=== PATIENT | female | born 1985 | race African-American/Black ===

== ENCOUNTER 2024-06-01 14:26 | Emergency (ER) | payer OTHER, SELFPAY ==
--- NOTE | ~2024-06-01 | CT_ITS ---
CLINICAL HISTORY: evaluate for malpositioned IUD CT Abdomen and Pelvis W Contrast COMPARISON: None FINDINGS: Detail limited by artifacts. Hepatomegaly. Normal spleen. Normal kidneys. Normal adrenal glands. Normal pancreas. No visible cholelithiasis. No biliary dilation. No evidence of bowel obstruction or colitis. Normal appendix. Mild dorsal bladder wall thickening. IUD appears normally positioned in the uterus by CT. No ascites. No pneumoperitoneum. No lymphadenopathy. No acute fracture. No abdominal aortic aneurysm. IMPRESSION: Possible cystitis. Normally positioned IUD by CT. This document has been electronically signed by: Eric Lius MD on 06/01/2024 22:05:35
[2024-06-01 15:07] VITALS: BP 131/86; PULSE 85; RESP 16; TEMP 36.8; O2SAT 98; BMI 27.5
--- NOTE | 2024-06-01 15:12 | ED_ITS ---
HPI - General Adult General Chief complaint: Vaginal Bleeding Stated complaint: pain lower abd Time Seen by Provider: 06/01/24 18:30 History of Present Illness ED Provider: Pepe Mojica DO HPI narrative: 38-year-old Malaysian Creole speaking female who is with last the in February 2024 with section other significant past medical history presents to the ED due to 1 week of persistent vaginal bleeding without clots. History obtained with the assistance of patient Creole corporate communications intern via tablet. Patient states she has had persistent bleeding which worsened over the last couple of days, soaking through no previous history of vaginal bleeding. No vaginal trauma. She denies urinary symptoms such as dysuria, urgency or frequency. She denies fevers, chills, vomiting and diarrhea. She does report some cramping lower abdominal pain. She had an IUD placed shortly after her section. Related Data Previous Rx's ?Medication ?Instructions ?Recorded acetaminophen 500 mg tablet 500 mg PO Q6H PRN fever or pain 06/01/24 #20 tabs ibuprofen 600 mg tablet 600 mg PO TID PRN fever or pain 06/01/24 #20 tabs Allergies Allergy/AdvReac Type Severity Reaction Status Date / Time No Known Allergies Allergy Verified 06/01/24 15:16 Review of Systems 2 Review of Systems: Yes all other systems are reviewed and are negative PMFSH Social History Social History Advance Directives: No Advance Directives Information Provided: No Do you have a plan to hurt others: No Plan Physical Exam ED Vital Signs: Vital Signs - 24 hr 06/01/24 15:07 06/01/24 20:00 Temperature 98.2 F 98.3 F Pulse Rate 85 74 Respiratory Rate 16 18 Blood Pressure 131/86 141/93 H Pulse Oximetry 98 100 Oxygen Delivery Method Room Air Room Air BMI result Body Mass Index 27.5 Constitutional: ?Alert, oriented, speaking in full sentences HEENT: ?Moist mucous membranes Eyes: ?PERRL, EOMI Neck: ?Supple, nontender Chest: ?No chest wall tenderness Respiratory: ?Lungs clear to auscultation, no increased work of breathing Cardio: ?Regular rate and rhythm, no murmur, 2+ radial and DP pulses symmetrically GI: ?Soft, nondistended, nontender Back: ?Normal range of motion, nontender Skin: ?No rash, no lesions : Speculum exam performed with female industrial gas servicer supervisor, Linda, present. Patient noted to have pooling of blood which was removed with 3 scopettes. Small amount of oozing was visualized from the cervix. IUD strings also visualized emerging from the cervix. No vaginal wall lacerations. No clots noted. No discharge otherwise. Neuro: ?Alert and oriented to person, place and time, moves all 4 extremities, no focal deficits Extremities: ?No swelling or tenderness, full range of motion Psych: ?Calm, alert and cooperative, appropriate behavior Course Course Course Narrative: This is a rapid medical exam performed by Stanislaw Millard NP: Additional HPI, ROS, PE not included below will be deferred to primary provider. Patient is a 38-year-old Malaysian Creole speaking female presenting with lower abdominal pain. States she had recent on 02/09/24, had IUD placed, is having vaginal bleeding. Plan: labs, UA Medications Administered Discontinued Medications Generic Name Dose Route Start Last Admin Trade Name Freq PRN Reason Stop Dose Admin Ketorolac Tromethamine 15 mg 06/01/24 20:49 06/01/24 21:56 Ketorolac Tromethamine 15 Mg/Ml Vial IVPUSH 06/01/24 20:50 15 mg ONCE ONE Administration Medical Decision Making Medical Decision Making [facility] Narrative: Well-appearing, pleasant female presenting with some cramping abdominal pain and vaginal bleeding. Labs have been reviewed and show no coagulopathy, no anemia. Patient has mild hypertension which may be related to discomfort today. Otherwise vitals are unremarkable. We will address discomfort and bleeding with IV ketorolac. Based on the exam, the patient is not having profuse bleeding. However, differential for bleeding includes IUD malposition which will be further evaluated with CT abdomen and pelvis with contrast. Unlikely to be due to mass. Outside the window for obstetric complication. The patient will be signed out to the next provider pending CT results and final disposition. I received sign-out from my colleague Dr. Mojica. CT scan of the abdomen does not show any acute abnormality, IUD is in place. Patient believes she has a copper IUD. I discussed with the patient that unfortunately, with any IUDs, the vaginal bleeding can be unpredictable in amount and timing. Patient's hemoglobin is stable, no signs of anemia. I discussed with the patient that if she can not tolerate amount of bleeding or discomfort, she can follow-up with her OBGYN and discuss the removal of IUD versus alternative treatments. Patient requesting to be referred to our OBGYN, Dr. Guerra Admission/Observation Consideration of admission/observation: Escalation of care including admission/observation considered Lab Data MDM Lab Attestation statement: I reviewed the patient's lab results. Chemistry shows mild elevation of AST, negative test, no other acute findings. Unremarkable coags. Unremarkable CBC with a hemoglobin of 13.2. Urinalysis showing no evidence of cystitis a positive for proteinuria and hematuria. 06/01/24 15:30 06/01/24 15:30 Labs: Lab Results 06/01/24 Range/Units 15:30 WBC 5.8 (4.8-10.8) X10*3/uL RBC 5.14 (4.20-5.50) X10*6/uL Hgb 13.2 (12.0-16.0) g/dl Hct 41.4 (37.0-47.0) % MCV 80.5 (80.0-98.0) fL MCH 25.7 L (27.0-33.0) pg MCHC 31.9 (31.0-35.0) g/dl RDW 14.5 (11.0-16.0) % Plt Count 250 (160-400) X10*3/uL MPV 9.5 (9.4-12.3) fL Immature Gran % (Auto) 0.0 (0.0-0.4) % Neut % (Auto) 45.4 (45-73) % Lymph % (Auto) 42.1 H (20-40) % [place] % (Auto) 9.3 (2-11) % Eos % (Auto) 2.9 (0-4) % Baso % (Auto) 0.3 (0-2) % Lymph # (Auto) 2.5 (1.2-4.9) X10*3/uL [place] # (Auto) 0.5 (0.1-1.2) X10*3/uL Eos # (Auto) 0.2 (0.0-0.4) X10*3/uL Baso # (Auto) 0.0 (0.0-0.2) X10*3/uL Abs Immat Gran (auto) 0.00 (0.00-0.03) X10*3/uL Absolute Neuts (auto) 2.6 (2.0-8.3) x10*3/uL Absolute Nucleated RBC 0.000 (0.0-0.012) X10*3/uL Nucleated RBC % (auto) 0.0 (0.0-0.2) /100WBC PT 11.2 (10.9-12.4) SEC INR 1.0 (0.9-1.1) Sodium 140 (135-145) mmol/L Potassium 3.4 (3.3-5.1) mmol/L Chloride 107 (96-108) mmol/L Carbon Dioxide 28 (22-29) mmol/L Anion Gap 8 L (12-20) BUN 10 (9-16) mg/dL Creatinine 0.65 (0.5-1.4) mg/dL Estim Creat Clear Calc 136.1 Estimated GFR > 60 Random Glucose 92 (60-115) mg/dL Calcium 9.0 (8.4-10.2) mg/dL Total Bilirubin 0.1 (0.0-1.0) mg/dL AST 41 H (5-31) U/L ALT 27 (0-31) U/L Alkaline Phosphatase 101 (39-117) U/L Total Protein 7.8 (6.5-8.0) g/dL Albumin 3.9 (3.5-5.0) g/dL Beta HCG, Quant < 2 mIU/mL Urine Color RED Urine Appearance Turbid Urine pH 6.0 (5.0-9.0) Ur Specific [place] 1.025 (1.005-1.025) Urine Protein 30 (1+) H (Neg-Trace) mg/dL Urine Glucose (UA) Negative (Negative) mg/dL Urine Ketones Negative (Negative) mg/dL Urine Blood Large (3+) H (Negative) Urine Nitrite Negative (Negative) Ur Leukocyte Esterase Negative (Negative) Urine RBC >20 H (0-2) /HPF Urine WBC 0-5 (0-5) /HPF Ur Squamous Epith Cells 3-5 (0-2) /HPF Urine Bacteria 2+ (None Seen) Hyaline Casts 0-2 (0-2) /LPF Discharge Plan Discharge Clinical Impression: Vaginal bleeding, Menometrorrhagia Patient Disposition: Home, Self-Care Instructions: Menorrhagia (ED) Prescriptions: New ibuprofen 600 mg tablet 600 mg PO TID PRN (Reason: fever or pain) Qty: 20 0RF acetaminophen 500 mg tablet 500 mg PO Q6H PRN (Reason: fever or pain) Qty: 20 0RF Referrals: Thomas Acevedo MD [Physician] - 06/04/24 Print Language: [facility]
[2024-06-01 15:44] LABS: MANUAL DIFF FLAG NO
[2024-06-01 15:47] LABS: Basophils Percent Auto 0.3 % (0-2); Eosinophils Absolute Auto 0.2 X10*3/uL (0.0-0.4); Eosinophils Percent Auto 2.9 % (0-4); Hematocrit 41.4 % (37.0-47.0); Hemoglobin 13.2 g/dl (12.0-16.0); Lymphocytes Absolute Auto 2.5 X10*3/uL (1.2-4.9); Lymphocytes Percent Auto 42.1 % (20-40); Mean Corpuscular HGB Conc 31.9 g/dl (31.0-35.0); Mean Corpuscular Hemoglobin 25.7 pg (27.0-33.0); Mean Corpuscular Volume 80.5 fL (80.0-98.0); Mean Platelet Volume 9.5 fL (9.4-12.3); Monocytes Absolute Auto 0.5 X10*3/uL (0.1-1.2); Monocytes Percent Auto 9.3 % (2-11); Neutrophils Absolute Auto 2.6 x10*3/uL (2.0-8.3); Neutrophils Percent Auto 45.4 % (45-73); Platelet Count 250 X10*3/uL (160-400); Red Blood Count 5.14 X10*6/uL (4.20-5.50); Red Cell Distribution Width 14.5 % (11.0-16.0); White Blood Count 5.8 X10*3/uL (4.8-10.8)
[2024-06-01 15:55] LABS: Prothrombin Time 11.2 SEC (10.9-12.4)
[2024-06-01 16:08] LABS: Alanine Aminotransferase 27 U/L (0-31); Albumin Level 3.9 g/dL (3.5-5.0); Alkaline Phosphatase 101 U/L (39-117); Anion Gap 8 (12-20); Aspartate Amino Transferase 41 U/L (5-31); Bilirubin Total 0.1 mg/dL (0.0-1.0); Blood Urea Nitrogen 10 mg/dL (9-16); Carbon Dioxide 28 mmol/L (22-29); Chloride 107 mmol/L (96-108); Creatinine Clr Calc Pharmacy 136.1; Estimated Glomerular Filt Rate > 60; Glucose Random 92 mg/dL (60-115); Potassium 3.4 mmol/L (3.3-5.1); Sodium 140 mmol/L (135-145); Total Protein 7.8 g/dL (6.5-8.0)
[2024-06-01 16:12] LABS: HCG Quantitative < 2 mIU/mL
[2024-06-01 16:17] LABS: Appearance Urine Turbid; Glucose Urine UA Negative (Negative); Leukocyte Esterase Urine Negative (Negative); Nitrite Urine Negative (Negative); Specific Gravity - Urine 1.025 (1.005-1.025); UMIC TRIGGER UACC YES; Urine Blood Large (3+) (Negative); Urine Ketones Negative (Negative); Urine Protein 30 (1+) mg/dL (Neg-Trace)
[2024-06-01 16:24] LABS: Color Urine RED
[2024-06-01 16:25] LABS: RBC Urine >20 /HPF (0-2); WBC Urine 0-5 /HPF (0-5)
[2024-06-01 16:26] LABS: Bacteria Urine 2+ (None Seen); Hyaline Casts Urine 0-2 /LPF (0-2)
[2024-06-01 20:00] VITALS: BP 141/93; PULSE 74; RESP 18; TEMP 36.8; O2SAT 100
--- NOTE | 2024-06-01 20:07 | MHC.EDTECH ---
This tech took over care of pt at 1900,rounded and introduced self to pt,vitals taken,family at bedside call hong in reach
[2024-06-01] MEDS: Ketorolac Tromethamine 15 MG/ML VIAL IVPUSH (21:56)
[2024-06-01 23:09] VITALS: BP 141/93; PULSE 74; RESP 18; TEMP 36.8; O2SAT 100
== END 2024-06-01 23:09 | disposition home or self-care (01) ==
PROVIDERS: Registered Nurse Emergency; Emergency Provider Emergency Medicine
DX: N92.1 Excessive and frequent menstruation with irregular cycle (principal); N93.9 Abnormal uterine and vaginal bleeding, unspecified; R10.2 Pelvic and perineal pain; Z79.899 Other long term (current) drug therapy
CPT/HCPCS: 36415; 74177; 80053; 81001; 81003; 84702; 85025; 85610; 96374; 99283; 99284; J1885

== ENCOUNTER → 2024-06-01 19:17 | Outpatient (BNV) | payer OTHER, SELFPAY | PROVIDERS: Emergency Provider Emergency Medicine; Visit Provider Radiology Diagnostic Radiology | DX: R10.30 Lower abdominal pain, unspecified (principal) | CPT/HCPCS: 74177 ==

== ENCOUNTER 2024-07-24 09:06 | Outpatient (AMB) | payer OTHER, SELFPAY ==
--- NOTE | 2024-07-24 09:09 | A.OFFVIS_ITS ---
Vital Signs 07/24/24 09:11 Height 5 ft 8 in Weight 187 lb BMI 28.4 Intake Visit Reasons: ER follow up Veterinary Assistant Required: Yes Veterinary Assistant Language: Ivorianjer[place] Veterinary Assistant Services: Veterinary Assistant Present ([employer]) Veterinary Assistant Name: Radha # [id number] Information Interpreted: non-clinical & clinical Electronic Video Games Servicer: Electronic Video Games Servicer Present (Hannah CALDERÓN) Accompanied by: Self / Same As Patient Allergies No Known Allergies Allergy (Verified 07/24/24 09:15) Is last menstrual period known: No HPI Comments Details: Presenting for ER follow-up the patient went to the emergency room on 06/01/2024 for vaginal bleeding. since 03/01, had copper IUD since then. The workup in the emergency room include the following: H and H 13.2/41.4 HCG less than 2 CT scan was negative with IUD in appropriate position Since then the patient did not have her menstrual cycles complaining of vaginal discomfort since IUD insertion PFSH Surgical History Hx of section Hx of tubal ligation Social History Household Members: Spouse and Children Housing Other:: care home Alcohol intake: never Patient Tobacco Use Status: Never used Tobacco Current occupational status: unemployed Sexually active: Yes Sexual orientation: Straight/Heterosexual Gender identity: Female Female Reproductive History Menstrual Total pregnancies: 9 Full term: 8 Number of Living Children: 8 Ab spontaneous: 1 Review of Systems Const All systems reviewed & are unremarkable except as noted in HPI and below Physical Exam Vital Signs: BMI result Body Mass Index 28.4 General: Yes no CVA tenderness External Female Exam: normal external appearance and normal appearance of the urethra Speculum Exam - Vagina: normal appearance of the vagina, normal palpation, no lesions and no masses Speculum Exam - Cervix: normal appearance of the cervix, normal palpation, no lesions, no masses, nontender and Other cervical findings present (Long IUD string, shortened) Bimanual exam- vagina & uterus: normal bimanual exam, normal palpation, uterine size normal, normal palpation, uterine shape normal, No Cervical tenderness present and non-tender Bimanual Exam- Adnexa, other: normal adnexae Back/Spine/Pelvis Back: no CVA tenderness Results AMB Test Urine AMB Test Urine Negative Last Edit by Hannah Sherwood CMA on 09:43 Assessment & Plan Assessment & Plan (1) Pelvic pain: Code(s): R10.2 - Pelvic and perineal pain Category: Medical Plan: Discussed with the patient the finding on pelvic exam long IUD string, shortened. Urine dip and test done in the office were both negative. GC and chlamydia taken and pelvic ultrasound ordered. Discussed with the patient the differential diagnosis of pelvic pain including but not limited to adnexal, uterine masses, pelvic infections (PID), GI the (Irritable bowel syndrome, diverticulitis, others), musculoskeletal, myofascial pain abdominal wall , adhesions, endometriosis, psychological and others causes. Will check results and treat accordingly. All questions answered, the patient verbalized understanding. Instructed the patient to schedule an ultrasound and a follow-up appointment in 2 weeks. All questions answered, the patient verbalized understanding and agreed with the plan. Orders: Orders AMB HCG Urine Test Today Z32.02 - Encounter for test, result negative US pelvic and transvaginal Today R10.2 - Pelvic and perineal pain Coding Level of Care Code New Pt Level 3 (06439) Diagnoses Pelvic pain R10.2
[2024-07-24 09:11] VITALS: BMI 28.4
== END 2024-07-24 09:55 | disposition home or self-care (01) ==
LOC: HO.HWS 09:06
PROVIDERS: Visit Provider Obstetrics & Gynecology
DX: Z32.02 Encounter for pregnancy test, result negative (principal); R10.2 Pelvic and perineal pain
CPT/HCPCS: 99203

== ENCOUNTER 2024-07-24 09:06 | Outpatient (REF) | payer OTHER, SELFPAY | END 2024-07-24 09:07 | disposition home or self-care (01) | LOC: HO.LNP 09:06 | PROVIDERS: Visit Provider Obstetrics & Gynecology | DX: R10.2 Pelvic and perineal pain (principal); N93.9 Abnormal uterine and vaginal bleeding, unspecified; Z32.02 Encounter for pregnancy test, result negative | CPT/HCPCS: 81025; 99202; 99459 ==

== ENCOUNTER 2024-07-26 14:19 | Outpatient (REF) | payer OTHER, SELFPAY ==
[2024-07-27 04:52] LABS: CT PCR NOT DETECTED (Not Detect.); NG PCR NOT DETECTED (Not Detect.)
== END 2024-07-26 14:20 | disposition home or self-care (01) ==
LOC: HO.LNP 14:19
PROVIDERS: Visit Provider Obstetrics & Gynecology
DX: R10.2 Pelvic and perineal pain (principal)
CPT/HCPCS: 87491; 87591

== ENCOUNTER 2024-07-30 13:59 | Emergency (ER) | payer OTHER, SELFPAY ==
--- NOTE | 2024-07-30 14:04 | ECG_ITS ---
Test Reason : syncope Blood Pressure : */* mmHG Vent. Rate : 84 BPM Atrial Rate : 84 BPM P-R Int : 164 ms QRS Dur : 80 ms QT Int : 360 ms P-R-T Axes : 48 -14 27 degrees QTcB Int : 425 ms Normal sinus rhythm Moderate voltage criteria for LVH, may be normal variant ( R in aVL , Hollister product ) Nonspecific T wave abnormality Abnormal ECG No previous ECGs available Referred By: Generic ED Physician Electronically Signed By: JOAQUIN ATKINSON MD
[2024-07-30 14:21] VITALS: BP 130/88; BP 135/91; PULSE 100; PULSE 88; RESP 18; TEMP 37.1; O2SAT 100; O2SAT 96; BMI 28.4
--- NOTE | 2024-07-30 14:35 | ED_ITS ---
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 She has no CP/SOB, no n/v/d. She is very anxious due to being in a [place] [facility] with 8 kids. She states she feels okay now and is hungry. She notes she has had this before in the past but not to this degree. No recent travel or procedures. No seizure activity reported, no SI/HI. No confusion upon waking. MD complaint: episode Onset (ago): hour(s) (several) Radiation: non-radiation Severity: moderate Relieving factors: none Exacerbating factors: other (stress) Associated symptoms: denies other symptoms Treatments prior to arrival: none Related Data Home Medications ?Medication ?Instructions ?Recorded ?Confirmed vitamin no.167-folic acid tab PO 07/24/24 400 mcg-dha 25 mg chewable tablet (One-A-Day ) Previous Rx's ?Medication ?Instructions ?Recorded acetaminophen 500 mg tablet 500 mg PO Q6H PRN fever or pain 06/01/24 #20 tabs ibuprofen 600 mg tablet 600 mg PO TID PRN fever or pain 06/01/24 #20 tabs Allergies Allergy/AdvReac Type Severity Reaction Status Date / Time No Known Allergies Allergy Verified 07/30/24 14:33 Review of Systems 2 Review of Systems: Constitutional : No Fever, No Chills, No Fatigue ENT/Mouth : No sore throat, No Rhinorrhea Eyes: No Eye Pain, No Swelling, No Redness Cardiovascular : No Chest Pain, No SOB, No Dyspnea on Exertion Respiratory : No Cough, No Sputum Gastrointestinal : No Nausea, No Vomiting, No Diarrhea, No abdominal Pain Genitourinary : No Dysuria, No Urinary Frequency, No Hematuria, Musculoskeletal : No joint pain, No Myalgias, No Joint Swelling Skin : No Skin Lesions, No rash Neuro : No Weakness, No Numbness, No Dizziness, no Headache Psych : pos Anxiety/Panic, No Depression Heme/Lymph: No Bruising, No Bleeding,No Lymphadenopathy Endocrine : No Polyuria, No Polydipsia All other systems reviewed and are negative [facility] Past Medical History Attestation statement: The following information was validated with the patient. Source: old records reviewed Surgical History Hx of section Hx of tubal ligation Social History Social History Household Members: Spouse and Children [place] Other:: [place] [facility] Alcohol intake: never Patient Tobacco Use Status: Never used Tobacco Advance Directives: No Advance Directives Information Provided: Yes Current occupational status: unemployed Sexual orientation: Straight/Heterosexual Gender identity: Female Physical Exam ED Vital Signs: Vital Signs - 24 hr 07/30/24 14:21 Temperature 98.7 F Pulse Rate 100 Respiratory Rate 18 Blood Pressure 135/91 H Pulse Oximetry 100 Oxygen Delivery Method Room Air BMI result Body Mass Index 28.4 Appearance: Alert. Oriented X3. No acute distress. Eyes: Pupils equal, round and reactive to light. ENT: Pharynx normal. Neck: Normal inspection. Neck supple. CVS: Normal heart rate and rhythm. Pulses normal. Respiratory: No respiratory distress. Breath sounds normal. Abdomen: Soft and nontender. Skin: Skin warm and dry. Normal skin color. Normal skin turgor. Extremities: No lower extremity edema. No calf ttp Neuro: Oriented X 3. No motor deficit. No sensory deficit. CN2-12 intact Course Course Course Narrative: This is a rapid medical exam performed by Michelle Diane PA-C. The patient is a 39-year-old female who presents with multiple complaints. Patient states she was at her doctor's office when she had a syncopal episode. She states she had 3 episodes. Patient relates she has numerous psychosocial stressors, and that she feels ?like she thinks too much?. She is not having thoughts of self-harm. I am concerned that she may need a care team consult. We will screen broad labs including serum ethanol and drug screen. The patient was stable and can return to the waiting room pending her full medical assessment. Medical Decision Making Medical Decision Making MDM Narrative: 39 yo female with no PMH here with episode that she was dealing with stressful event then woke up in ambulance and admits to being under sig stress - she has no CP/SOB to suggest VTE or ACS she feels fine now and is eating and drinking. She denies SI/HI or needing to talk to crisis - at this time will obtain basic labs and EKG she is stable for DC, no seizures reported Differential Diagnosis Differential Diagnoses: The differential diagnosis associated with the presentation includes anxiety, dehydration, anemia, syncope Admission/Observation Consideration of admission/observation: Escalation of care including admission/observation considered work up negative slight nonspecific EKG changes but without any complaints and 8 hours in waiting room with stable repeat finding on EKG doubt ACS Lab Data MDM Lab Attestation statement: I reviewed the patient's lab results. 07/30/24 14:53 07/30/24 14:53 Labs: Lab Results 07/30/24 Range/Units 14:53 WBC 5.4 (4.8-10.8) X10*3/uL RBC 5.26 (4.20-5.50) X10*6/uL Hgb 13.7 (12.0-16.0) g/dl Hct 41.9 (37.0-47.0) % MCV 79.7 L (80.0-98.0) fL MCH 26.0 L (27.0-33.0) pg MCHC 32.7 (31.0-35.0) g/dl RDW 13.8 (11.0-16.0) % Plt Count 258 (160-400) X10*3/uL MPV 9.8 (9.4-12.3) fL Immature Gran % (Auto) 0.2 (0.0-0.4) % Neut % (Auto) 60.5 (45-73) % Lymph % (Auto) 29.9 (20-40) % [place] % (Auto) 7.9 (2-11) % Eos % (Auto) 0.9 (0-4) % Baso % (Auto) 0.6 (0-2) % Lymph # (Auto) 1.6 (1.2-4.9) X10*3/uL [place] # (Auto) 0.4 (0.1-1.2) X10*3/uL Eos # (Auto) 0.1 (0.0-0.4) X10*3/uL Baso # (Auto) 0.0 (0.0-0.2) X10*3/uL Abs Immat Gran (auto) 0.01 (0.00-0.03) X10*3/uL Absolute Neuts (auto) 3.2 (2.0-8.3) x10*3/uL Absolute Nucleated RBC 0.000 (0.0-0.012) X10*3/uL Nucleated RBC % (auto) 0.0 (0.0-0.2) /100WBC Sodium 137 (135-145) mmol/L Potassium 3.9 (3.3-5.1) mmol/L Chloride 105 (96-108) mmol/L Carbon Dioxide 25 (22-29) mmol/L Anion Gap 11 L (12-20) BUN 6 L (9-16) mg/dL Creatinine 0.65 (0.5-1.4) mg/dL Estim Creat Clear Calc 135.0 Estimated GFR > 60 Random Glucose 84 (60-115) mg/dL Calcium 9.5 (8.4-10.2) mg/dL Magnesium 2.0 (1.6-2.6) mg/dL Total Bilirubin 0.3 (0.0-1.0) mg/dL AST 22 (5-31) U/L ALT 18 (0-31) U/L Alkaline Phosphatase 80 (39-117) U/L Total Protein 8.2 H (6.5-8.0) g/dL Albumin 4.1 (3.5-5.0) g/dL Beta HCG, Quant < 2 mIU/mL Salicylates < 5.0 L (15-30) mg/dL Acetaminophen < 3 (<30) mcg/mL Ethyl Alcohol < 10 mg/dL Independent Interpretation I performed an independent interpretation of an: EKG Interpretation: Rate: 84 Rhythm: NSR [place]: left Normal P waves. Normal ROXANNA. Normal QRS complex. ST T wave : no PAULA, inverted t waves V1, V2 qTC: normal prior studies: no prior The study has been interpreted contemporaneously by me. EKG #2 Rate:80 Rhythm: NSR [place]: left, LVH Normal P waves. Normal ROXANNA. Normal QRS complex. ST T wave : no PAULA, inverted t waves V1, V2 qTC: normal prior studies: no prior suspect LVH causing nonspecific changes The study has been interpreted contemporaneously by me. . Independent Historian Clinical information obtained from an independent historian. History obtained from or confirmed by: Spouse Discharge Plan Discharge Clinical Impression: Anxiety Syncope Qualifiers: Syncope type: unspecified Qualified Code(s): R55 - Syncope and collapse Patient Disposition: Home, Self-Care Instructions: Anxiety (ED), Syncope (ED) Additional Instructions: rest and stay hydrated return for any worsening symptoms or concerns labs and work up reassuring You were seen in our Emergency Department today If you have trouble finding a therapist you can reach out to [address] [phone] [facility] can be reached 7 days a week 24 hours a day.? Call [phone] to speak with someone.? Return for any worsening symptoms or concerns such as thoughts of self harm or harm to others. Please call 911 if you feel your mental health is worsening.? Prescriptions: No Action ibuprofen 600 mg tablet 600 mg PO TID PRN (Reason: fever or pain) Qty: 20 0RF acetaminophen 500 mg tablet 500 mg PO Q6H PRN (Reason: fever or pain) Qty: 20 0RF One-A-Day 400 mcg- 25 mg tablet,chewable PO Print Language: [place]
[2024-07-30 14:58] LABS: MANUAL DIFF FLAG NO
[2024-07-30 14:59] LABS: Basophils Percent Auto 0.6 % (0-2); Eosinophils Absolute Auto 0.1 X10*3/uL (0.0-0.4); Eosinophils Percent Auto 0.9 % (0-4); Hematocrit 41.9 % (37.0-47.0); Hemoglobin 13.7 g/dl (12.0-16.0); Imm Gran Abs Auto 0.01 X10*3/uL (0.00-0.03); Imm Gran Pct Auto 0.2 % (0.0-0.4); Lymphocytes Absolute Auto 1.6 X10*3/uL (1.2-4.9); Lymphocytes Percent Auto 29.9 % (20-40); Mean Corpuscular HGB Conc 32.7 g/dl (31.0-35.0); Mean Corpuscular Volume 79.7 fL (80.0-98.0); Mean Platelet Volume 9.8 fL (9.4-12.3); Monocytes Absolute Auto 0.4 X10*3/uL (0.1-1.2); Monocytes Percent Auto 7.9 % (2-11); Neutrophils Absolute Auto 3.2 x10*3/uL (2.0-8.3); Neutrophils Percent Auto 60.5 % (45-73); Platelet Count 258 X10*3/uL (160-400); Red Blood Count 5.26 X10*6/uL (4.20-5.50); Red Cell Distribution Width 13.8 % (11.0-16.0); White Blood Count 5.4 X10*3/uL (4.8-10.8)
[2024-07-30 15:16] LABS: Alanine Aminotransferase 18 U/L (0-31); Albumin Level 4.1 g/dL (3.5-5.0); Anion Gap 11 (12-20); Aspartate Amino Transferase 22 U/L (5-31); Bilirubin Total 0.3 mg/dL (0.0-1.0); Blood Urea Nitrogen 6 mg/dL (9-16); Calcium 9.5 mg/dL (8.4-10.2); Carbon Dioxide 25 mmol/L (22-29); Chloride 105 mmol/L (96-108); Estimated Glomerular Filt Rate > 60; Ethanol < 10 mg/dL; Glucose Random 84 mg/dL (60-115); Potassium 3.9 mmol/L (3.3-5.1); Sodium 137 mmol/L (135-145); Total Protein 8.2 g/dL (6.5-8.0)
[2024-07-30 15:21] LABS: Alkaline Phosphatase 80 U/L (39-117); HCG Quantitative < 2 mIU/mL
[2024-07-30 15:24] LABS: Acetaminophen LAB < 3 mcg/mL (<30); Salicylate < 5.0 mg/dL (15-30)
--- NOTE | 2024-07-30 23:45 | ECG_ITS ---
Test Reason : SYNCOPE Blood Pressure : */* mmHG Vent. Rate : 80 BPM Atrial Rate : 80 BPM P-R Int : 162 ms QRS Dur : 82 ms QT Int : 372 ms P-R-T Axes : 58 -9 42 degrees QTcB Int : 429 ms Normal sinus rhythm Moderate voltage criteria for LVH, may be normal variant ( R in aVL , Sokolow-Carlin ) Nonspecific T wave abnormality Abnormal ECG When compared with ECG of 30-Jul-2024 14:08, No significant change was found Referred By: Martha Espino Electronically Signed By: JOAQUIN ATKINSON MD
[2024-07-30 23:58] VITALS: BP 138/83; PULSE 90; RESP 14; TEMP 37.2; O2SAT 97
[2024-07-31 00:12] VITALS: BP 138/83; PULSE 90; RESP 14; TEMP 37.2; O2SAT 97
== END 2024-07-31 00:12 | disposition home or self-care (01) ==
PROVIDERS: Physician Assistant Medical; Emergency Provider Emergency Medicine
DX: R55 Syncope and collapse (principal); R94.31 Abnormal electrocardiogram [ECG] [EKG]; Z79.899 Other long term (current) drug therapy; Z51.81 Encounter for therapeutic drug level monitoring
CPT/HCPCS: 36415; 80053; 80143; 80179; 80307; 83735; 84702; 85025; 93005; 99283

== ENCOUNTER → 2024-07-30 14:04 | Outpatient (BNV) | payer OTHER, SELFPAY | PROVIDERS: Emergency Provider Emergency Medicine; Visit Provider Internal Medicine Cardiovascular Disease | DX: R94.31 Abnormal electrocardiogram [ECG] [EKG] (principal); R55 Syncope and collapse | CPT/HCPCS: 93010 ==

== ENCOUNTER 2024-08-22 10:35 | Outpatient (REF) | payer OTHER, SELFPAY ==
--- NOTE | ~2024-08-22 | US_ITS ---
EXAMINATION: US PELVIS TRANSABDOMINAL AND TRANSVAGINAL HISTORY: R10.2 - Pelvic and perineal pain COMPARISON: Correlation is made with a CT of the pelvis dated 06/01/2024. TECHNIQUE: Transabdominal and endovaginal real-time 2D thomas-scale ultrasound was performed. FINDINGS: Uterus: The uterus is normal in size, measuring 10.0 x 5.3 x 6.3 cm. Myometrium has a normal echotexture. No fibroids are identified. Endometrium: The endometrial stripe measures 5 mm in thickness. An IUD is seen in the endometrial cavity but appears low-lying, with the transverse portion approximately 1.9 cm from the fundal endometrium with the arms entering the myometrium. Right ovary: The right ovary measures 3.3 x 2.0 x 2.6 cm. The right ovary is normal in size and echotexture. Left ovary: The left ovary measures 4.4 x 2.9 x 2.0 cm. The left ovary is normal in size and echotexture. Pelvic fluid: none. US/US pelvic and transvaginal IMPRESSION: Low-lying IUD as described. Otherwise unremarkable pelvic ultrasound. Electronically signed by: Raúl Henderson MD 08/22/2024 01:01 PM EDT
--- OUTSIDE RECORDS SUMMARY | 2024-08-22 12:28 | XMS_ITS | Continuity of Care Document ---
Author Organization [facility] Address [address] [place] [address] Phone Care Team Providers Care Surg Tech Name Role Phone Jeison Velez MD Unavailable [...] Diagnoses Date Provider Providers Copied on Encounter [facility], [address], [place], [place], [address], tel:[phone] [address] No Information 4 Agustin Mchugh . [address], [facility] [address], [place], [place], [address] , [place]. tel:[phone] Referring Provider: Jeison Velez MD H, [address], [place], [address] . tel:[phone] Office/outpa tient visit,est, mod [facility], [address], [place], [place], [address], [place] tel:[phone] [facility] 400 left shoulder pain (chief complaint) Subacromial impingement, leftLeft shoulder pain, unspecified chronicityPain in left leg 4 Agustin Mchugh . [address], [place], [place], [address] , [place]. tel: [phone] Referring Provider: Jeison Coello, [address], [place], [address] . tel:[phone] Office/outpa tient visit,[facility], [facility], [address], [place], [place], [address], [place] tel:[phone] [facility] 400 left shoulder pain (chief complaint) Left shoulder pain, unspecified chronicitySubacr omial impingement, left Jan- 3 Agustin Mchugh . [address], [place], [address] , [place]. tel: [phone] Referring Provider: Jeison Coello, [address], [place], [address] . tel:[phone] Office/outpa tient visit,[facility], [address], [place], [address], [place] tel:[phone] [facility] 400 left shoulder pain (chief complaint) Left shoulder pain, unspecified chronicitySubacr omial impingement, left 3 Agustin Mchugh . [address], [place], [address] , [place]. tel: [phone] Referring Provider: Jeison Coello, [address], [place], [address] . tel:[phone] Office/outpa tient visit,[facility], [facility], [address], [place], [place], [address], [place] tel:[phone] left shoulder pain (chief complaint) Subacromial impingement, leftLeft shoulder pain, unspecified chronicity Fermin- 3 Agustin Mchugh . [address], [place], [address] , [place]. tel:[phone] Referring Provider: Jeison Velez MD H, [address], [place], [address] . tel:[phone] Office/outpa tient visit,[facility], [address], [place], [place], [address], [place] tel:[phone] left shoulder pain (chief complaint) Subacromial impingement, left Aug- 3 Agustin Mchugh . [address], [place], [place], [address] , [place]. tel:[phone] Referring Provider: Jeison Velez MD H, [address], [place], [address] . tel:[phone] Office/outpa tient visit,[facility], [address], [place], [place], [address], [place] tel:[phone] [facility] [address] left shoulder pain (chief complaint) Left shoulder pain, unspecified chronicitySubacr omial impingement, left Jul- 3 Agustin Mchugh . [address], [place], [place], [address] , [place]. tel:[phone] Referring Provider: Jeison Velez MD H, [address], [place], [address] . tel:[phone] [facility], [address], [place], [place], [address], [place] tel:[phone] [facility] 400 No Information Jul- 3 Agustin Mchugh . [address], [place], [place], [address] , [place]. tel:[phone] Referring Provider: Jeison Velez MD H, [address], [place], [address] . tel:[phone] Family History Family Member Type Diagnosis Age At Onset No Information Payers Payer name Insurance type Covered democrat ID Authoriza tisam(s) [facility] W/C [id number] Social History Type Description Quantity Date Captured [...] symptoms are aggravated by no specific activity. Rmoi states that the symptoms are relieved by [...] as treatment options through the aid of mathematics faculty member. We have ordered physical therapy on multiple occasions. Physical therapy has been spotty at best. I am not sure if it is a communication problem with the patient or with her account adjuster. We will go ahead and reorder [...] exam f indings with the aid of mathematics faculty member as well as her nurse registered nurse hh case manager. She appears to be improving [...] but has not yet begun. She has mathematics faculty member here with her today and again I [...]
== END 2024-08-22 10:36 | disposition home or self-care (01) ==
LOC: HO.US 10:35
PROVIDERS: Visit Provider Obstetrics & Gynecology
DX: R10.2 Pelvic and perineal pain (principal)
CPT/HCPCS: 76830; 76856

== ENCOUNTER → 2024-08-22 10:42 | Outpatient (BNV) | payer OTHER, SELFPAY | PROVIDERS: Visit Provider Radiology Diagnostic Radiology | DX: R10.2 Pelvic and perineal pain (principal); Z97.5 Presence of (intrauterine) contraceptive device | CPT/HCPCS: 76830; 76856 ==

== ENCOUNTER 2024-08-23 13:32 | Outpatient (AMB) | payer OTHER, SELFPAY ==
--- NOTE | 2024-08-23 13:35 | MHC.OFFVIS ---
Vital Signs 08/23/24 13:46 Height 5 ft 8 in Weight 186 lb BMI 28.3 Intake Visit Reasons: IUD removal and insertion Credit Product Analyst Required: Yes Credit Product Analyst Language: Shaq Ga Credit Product Analyst Services: Credit Product Analyst Present ([employer]) Credit Product Analyst Name: Young Information Interpreted: non-clinical & clinical Balance Wheel Screw Hole Driller: Balance Wheel Screw Hole Driller Present (Hannah Sherwood STEPHANE) Accompanied by: Spouse Allergies No Known Allergies Allergy (Verified 08/23/24 13:47) HPI Comments Details: Presenting for follow-up ultrasound done on 08/22/2024 which showed the following: IMPRESSION: Low-lying IUD as described. Otherwise unremarkable pelvic ultrasound. The patient is complaining of vulvovaginal itching not associated with any vaginal discharge or vaginal odor. In addition the patient is complaining of irregular menstrual cycles over the last few months [facility] Surgical History Hx of section Hx of tubal ligation Social History Household Members: Spouse and Children Housing Other:: halfway Alcohol intake: never Patient Tobacco Use Status: Never used Tobacco Current occupational status: unemployed Sexual orientation: Straight/Heterosexual Gender identity: Female Review of Systems Const All systems reviewed & are unremarkable except as noted in HPI and below Reports as per HPI and Reports no additional complaints GI Reports no additional complaints Reports no additional complaints Physical Exam Vital Signs: BMI result Body Mass Index 28.3 General: Yes no CVA tenderness External Female Exam: normal external appearance and normal appearance of the urethra Speculum Exam - Vagina: normal appearance of the vagina, normal palpation, no lesions and no masses Speculum Exam - Cervix: normal appearance of the cervix, normal palpation, no lesions, no masses and nontender Bimanual exam- vagina & uterus: normal bimanual exam, normal palpation, uterine size normal, normal palpation, uterine shape normal, No Cervical tenderness present and non-tender Bimanual Exam- Adnexa, other: normal adnexae Back/Spine/Pelvis Back: no CVA tenderness Office Procedures Endometrial Biopsy Details: The patient was counseled regarding the indication and benefits of endometrial sampling to rule out endometrial pathology including not limited to endometrial hyperplasia or endometrial cancer and others; The alternatives (Either do nothing vs. hysteroscopy D&C) & the risks were discussed with the patient including but not limited: pain, uterine perforation, bleeding, infection, possible injury to bladder, bowel, ureter, possible need for blood transfusion with all its possible risks. The patient verbalized understanding all questions answered and signed consent. Urine test done in the office was negative The patient was placed into the dorsal lithotomy position; a speculum was inserted in the vagina. Using aseptic technique for the procedure, the cervix was cleansed with Betadine. The anterior lip of the cervix was grasped with a single tooth tenaculum. The uterus was sounded to 7 cm with a 4 mm Pipelle was used. Tissues samples were obtained and placed in formalin, in a patient labeled container and sent to the pathology department. At the end of the procedure, there was minimal bleeding noted The patient tolerated the procedure well and was discharged in good condition with the following instructions: Nothing in the vagina until the bleeding stops. No sex until the bleeding stops, to call if any of the following occurs: fever (>100.4), flu-like symptoms, abdominal pain, heavy bleeding, four smelling vaginal discharge. The patient was instructed to schedule a Follow up appointment in 2 weeks to discuss pathology results of the biopsy and treatment options. This note was generated with a voice recognition program. Some errors may have been overlooked during the review of this note. Sometimes these errors may affect the content or meaning of a given sentence. 37246-[id number] Biopsy IUD Insert/Removal Details Details: Counseling/Consent: After discussing with the patient the risks of the procedure including bleeding, infection, scar tissue formation, , possible injury to blood vessels or nerves, chronic arm pain, blood transfusion, and irregular unpredictable bleeding Alternative options were discussed with the patient including but not limited: Do nothing. The patient signed the consent and agreed with the plan; all questions answered. Urine test was done in the office and was negative Preop dx: IUD malposition Op: ParaGard IUD removal Post op dx: same EBL= 10 cc Procedure: The patient was put in the dorsal lithotomy position a speculum was inserted in the vagina the IUD thread identified. Using a Julieta clamp the thread was grasped and the IUD pulled out with no complications. The patient tolerated the procedure well and was advised to use a different method for contraception. Discharge instructions: Instructions were given to the pt to call if temp>100.4, abdominal pain heavy vaginal bleeding, n/v occur. The patient verbalized understanding and all questions answered. Mirena IUD insertion The patient is presenting for Mirena IUD insertion Urine test was done in the office and was negative; All the contraindications were excluded. The following possible complications were discussed with the patient: Intrauterine , Ectopic , Sepsis, Pelvic Infection, Irregular Bleeding and Amenorrhea, Perforation, Expulsion, Ovarian Cysts, Breast Cancer, The following adverse effects were discussed with the patient: alteration of menstrual bleeding pattern, including: unscheduled uterine bleeding decreased uterine bleeding increased scheduled uterine bleeding female genital tract bleeding ,amenorrhea , genital discharge , vulvovaginitis , breast pain , benign ovarian cyst and associated complications , dysmenorrhea , Gastrointestinal disorders abdominal/pelvic pain, headache/migraine , back pain , acne , depression Alternative options were discussed with the patient including but not limited: control pills, patch, NuvaRing, Depo-medroxyprogesterone acetate, Nexplanon, copper IUD, sterilization, vasectomy, others The procedure was explained in detail to patient , at the end patient signed the informed consent obtained. A no touch technique was used throughout the procedure. A speculum was placed into vagina and cervix was cleaned with betadine). A tenaculum was placed. A plastic sound was advanced through the external and internal os until it reached the fundus of the uterus, the depth was 8 cm. The sound was then withdrawn. The IUD was loaded in a sterile manner and advanced into position. The string was visualized and cut to 3 cm. Tenaculum site hemostatic. All instruments removed from vagina. Patient tolerated the procedure well. NO complications were noted. Patient was instructed to call for fever over 100.4, significant pain unrelieved by Motrin, IUD expulsion, heavy bleeding, or abnormal discharge. In addition, the following clinical considerations were discussed with the patient to call for removal: A stroke or heart attack ,Very severe or migraine headaches ,Unexplained fever ,Yellowing of the skin or whites of the eyes, as these may be signs of serious liver problems , or suspected , Pelvic pain or pain during sex ,HIV positive seroconversion in herself or her partner , Possible exposure to sexually transmitted infections Unusual vaginal discharge or genital sores , severe vaginal bleeding or bleeding that lasts a long time, or if she misses a menstrual period, Inability to feel Mirena's threads Counseled the patient that the IUD does not protect against STI's, recommended use of condoms for the first 7 days post insertion and explained to the patient that condoms are recommended for patients at risk for sexually transmitted infections. Informed the patient that Mirena IUD is FDA approved for 8 years for contraception for 5 years for the treatment of heavy menses Instructed the patient to schedule a Follow up appointment in 4 to 6 weeks following insertion. This note was generated with a voice recognition program. Some errors may have been overlooked during the review of this note. Sometimes these errors may affect the content or meaning of a given sentence. [id number] Insertion 62773-XVB Removal Procedure code (CPT) selection complete Results AMB Test Urine AMB Test Urine Negative Last Edit by Hannah Sherwood CMA on 08/23/24 14:01 Results Reviewed Results Reviewed: Laboratory Last Values Tst Clinic Negative 08/23/24 14:00 Assessment & Plan Assessment & Plan (1) Malpositioned IUD: Code(s): T83.32XA - Displacement of intrauterine contraceptive device, initial encounter Category: Medical Plan: Discussed with the patient the results the ultrasound, low-lying IUD, recommended removal and reinsertion. The patient decided to proceed. IUD removal/insertion done, see procedure note (2) Abnormal uterine bleeding (AUB): Code(s): N93.9 - Abnormal uterine and vaginal bleeding, unspecified Category: Medical Plan: GC and chlamydia aken , CBC, TSH, HCG, aordered. Discussed with the patient the different causes of abnormal bleeding including thyroid disorders, uterine and ovarian pathology, endometrial hyperplasia, carcinoma and other potential causes. Discussed with the patient the work up including CBC (to r/o anemia), TSH, pelvic Ultrasound, endometrial biopsy to r/o endometrial pathology. All questions answered and the patient verbalized understanding. EMB done, see procedure note Instructed the patient to schedule an appointment for co testing, IUD follow-up in an endometrial biopsy follow-up in 6 weeks. (3) Vulvovaginitis: Code(s): N76.0 - Acute vaginitis Category: Medical Plan: GC/CT, Bacterial Vaginosis panel taken, Terazol 0.8% q.h.s. for 3 days was sent to the patient's pharmacy. The patient was instructed to call if symptoms don't improve in 48 hours. (4) Remove/insert IUD: Code(s): Z30.433 - Encounter for removal and reinsertion of intrauterine contraceptive device Category: Medical Plan: ParaGard IUD removed and Mirena IUD inserted, see procedure note Orders: Orders AMB HCG Urine Test Today T83.32XA - Displacement of intrauterine contraceptive device, initial encounter, Z32.02 - Encounter for test, result negative TSH reflex Free T4 Today N93.9 - Abnormal uterine and vaginal bleeding, unspecified HCG Quantitative Today N93.9 - Abnormal uterine and vaginal bleeding, unspecified Complete Blood Count no Diff Today N93.9 - Abnormal uterine and vaginal bleeding, unspecified AMB IUD Insertion/Removal - Practice Supplied Today Z30.430 - Encounter for insertion of intrauterine contraceptive device AMB Endometrial Biopsy Today N93.9 - Abnormal uterine and vaginal bleeding, unspecified Medications: New Mirena (levonorgestrel) 1 device intrauterine ONCE 1 ea 0RF IUD insertion NS Z30.430 - Encounter for insertion of intrauterine contraceptive device terconazole 0.8% 1 appful vaginal BEDTIME 3 days 20 grams 0RF Coding Level of Care Code Est Pt Level 3 (85411) Procedure Only Diagnoses Malpositioned IUD T83.32XA Abnormal uterine bleeding (AUB) N93.9 Vulvovaginitis N76.0 Remove/insert IUD Z30.433 CPT Codes Endometrial Biopsy - CPT: 57492-Thxbugkvxdj Biopsy ([id number]) Details - CPT: 91096-DMT Removal ([id number]) Details - CPT: 30103-XUO Insertion ([id number])
[2024-08-23 13:46] VITALS: BMI 28.3
--- OUTSIDE RECORDS SUMMARY | 2024-08-23 16:34 | XMS_ITS | Continuity of Care Document ---
Author Organization [facility] Address [address] [place] [address] Phone Care Team Providers Care Bingo Worker Name Role Phone Jeison Velez MD [...] Diagnoses Date Provider Providers Copied on Encounter [facility], [address], [place], [place], [address], tel:[phone] [address] No Information 4 Agustin Mchugh . [address], [facility] [address], [place], [place], [address] , [place]. tel:[phone] Referring Provider: Jeison Velez MD H, [address], [place], [address] . tel:[phone] Office/outpa tient visit,est, mod [facility], [address], [place], [place], [address], [place] tel:[phone] [facility] 400 left shoulder pain (chief complaint) Subacromial impingement, leftLeft shoulder pain, unspecified chronicityPain in left leg 4 Agustin Mchugh . [address], [place], [place], [address] , [place]. tel: [phone] Referring Provider: Jeison Coello, [address], [place], [address] . tel:[phone] Office/outpa tient visit,[facility], [facility], [address], [place], [place], [address], [place] tel:[phone] [facility] 400 left shoulder pain (chief complaint) Left shoulder pain, unspecified chronicitySubacr omial impingement, left Jan- 3 Agustin Mchugh . [address], [place], [place], [address] , [place]. tel: [phone] Referring Provider: Jeison Coello, [address], [place], [address] . tel:[phone] Office/outpa tient visit,[facility], [address], [place], [place], [address], [place] tel:[phone] [facility] 400 left shoulder pain (chief complaint) Left shoulder pain, unspecified chronicitySubacr omial impingement, left 3 Agustin Mchugh . [address], [place], [place], [address] , [place]. tel: [phone] Referring Provider: Jeison Coello, [address], [place], [address] . tel:[phone] Office/outpa tient visit,[facility], [facility], [address], [place], [place], [address], [place] tel:[phone] left shoulder pain (chief complaint) Subacromial impingement, leftLeft shoulder pain, unspecified chronicity Fermin- 3 Agustin Mchugh . [address], [place], [place], [address] , [place]. tel:[phone] Referring Provider: Jeison Velez MD H, [address], [place], [address] . tel:[phone] Office/outpa tient visit,[facility], [address], [place], [place], [address], [place] tel:[phone] [facility] [address] left shoulder pain (chief complaint) Subacromial impingement, left Aug- 3 Agustin Mchugh . [address], [place], [place], [address] , [place]. tel:[phone] Referring Provider: Jeison Velez MD H, [address], [place], [address] . tel:[phone] Office/outpa tient visit,[facility], [address], [place], [place], [address], [place] tel:[phone] [facility] [address] left shoulder pain (chief complaint) Left shoulder pain, unspecified chronicitySubacr omial impingement, left Jul- 3 Agustin Mchugh . [address], [place], [place], [address] , [place]. tel:[phone] Referring Provider: Jeison Velez MD H, [address], [place], [address] . tel:[phone] [facility], [address], [place], [place], [address], [place] tel:[phone] [facility] 400 No Information Jul- 3 Agustin Mchugh . [address], [place], [place], [address] , [place]. tel:[phone] Referring Provider: Jeison Velez MD H, [address], [place], [address] . tel:[phone] Family History Family Member Type Diagnosis Age At Onset No Information Payers Payer name Insurance type Covered green party ID Authoriza tisam(s) [facility] W/C [id number] Social History Type Description Quantity Date Captured [...] as treatment options through the aid of sugar mixer. We have ordered physical therapy on multiple occasions. Physical therapy has been spotty at best. I am not sure if it is a communication problem with the patient or with her switch adjuster. We will go ahead and reorder [...] exam f indings with the aid of sugar mixer as well as her nurse caser in. She appears to be improving but still [...] but has not yet begun. She has sugar mixer here with her today and again I [...]
== END 2024-08-23 14:30 | disposition home or self-care (01) ==
PROVIDERS: Visit Provider Obstetrics & Gynecology
DX: T83.32XA Displacement of intrauterine contraceptive device, initial encounter (principal); Z30.433 Encounter for removal and reinsertion of intrauterine contraceptive device; N93.9 Abnormal uterine and vaginal bleeding, unspecified
CPT/HCPCS: 58100; 58300; 58301

== ENCOUNTER 2024-08-23 13:32 | Outpatient (REF) | payer OTHER, SELFPAY ==
--- OUTSIDE RECORDS SUMMARY | 2024-08-23 17:50 | XMS_ITS | Continuity of Care Document ---
Author Organization [facility] Address [address] [place] [address] Phone Care Team Providers Care Finished Hardware Erector Name Role Phone Jeison Velez MD Unavailable [...] Diagnoses Date Provider Providers Copied on Encounter [facility], [address], [place], [place], [address], tel:[phone] [address] No Information 4 Agustin Mchugh . [address], [facility] [address], [place], [place], [address] , [place]. tel:[phone] Referring Provider: Jeison Velez MD H, [address], [place], [address] . tel:[phone] Office/outpa tient visit,est, mod [facility], [address], [place], [place], [address], [place] tel:[phone] [facility] 400 left shoulder pain (chief complaint) Subacromial impingement, leftLeft shoulder pain, unspecified chronicityPain in left leg 4 Agustin Mchugh . [address], [place], [place], [address] , [place]. tel: [phone] Referring Provider: Jeison Coello, [address], [place], [address] . tel:[phone] Office/outpa tient visit,[facility], [facility], [address], [place], [place], [address], [place] tel:[phone] [facility] 400 left shoulder pain (chief complaint) Left shoulder pain, unspecified chronicitySubacr omial impingement, left Jan- 3 Agustin Mchugh . [address], [place], [address] , [place]. tel: [phone] Referring Provider: Jeison Coello, [address], [place], [address] . tel:[phone] Office/outpa tient visit,[facility], [address], [place], [place], [address], [place] tel:[phone] [facility] 400 left shoulder pain (chief complaint) Left shoulder pain, unspecified chronicitySubacr omial impingement, left 3 Agustin Mchugh . [address], [place], [place], [address] , [place]. tel: [phone] Referring Provider: Jeison Coello, [address], [place], [address] . tel:[phone] Office/outpa tient visit,[facility], [facility], [address], [place], [place], [address], [place] tel:[phone] left shoulder pain (chief complaint) Subacromial impingement, leftLeft shoulder pain, unspecified chronicity Fermin- 3 Agustin Mchugh . [address], [place], [place], [address] , [place]. tel:[phone] Referring Provider: Jeison Velez MD H, [address], [place], [address] . tel:[phone] Office/outpa tient visit,[facility], [address], [place], [place], [address], [place] tel:[phone] left shoulder pain (chief complaint) Subacromial impingement, left Aug- 3 Agustin Mchugh . [address], [place], [place], [address] , [place]. tel:[phone] Referring Provider: Jeison Velez MD H, [address], [place], [address] . tel:[phone] Office/outpa tient visit,[facility], [address], [place], [place], [address], [place] tel:[phone] [facility] [address] left shoulder pain (chief complaint) Left shoulder pain, unspecified chronicitySubacr omial impingement, left Jul- 3 Agustin Mchugh . [address], [place], [place], [address] , [place]. tel:[phone] Referring Provider: Jeison Velez MD H, [address], [place], [address] . tel:[phone] [facility], [address], [place], [place], [address], [place] tel:[phone] [facility] 400 No Information Jul- 3 Agustin Mchugh . [address], [place], [address] , [place]. tel:[phone] Referring Provider: Jeison Velez MD H, [address], [place], [address] . tel:[phone] Family History Family Member Type Diagnosis Age At Onset No Information Payers Payer name Insurance type Covered libertarian ID Authoriza tisam(s) [facility] W/C [id number] Social History Type Description Quantity Date Captured [...] as treatment options through the aid of ore bridge operator. We have ordered physical therapy on multiple occasions. Physical therapy has been spotty at best. I am not sure if it is a communication problem with the patient or with her forming machine adjuster. We will go ahead and [...] exam f indings with the aid of ore bridge operator as well as her nurse outsole caser. She appears to be improving but [...] but has not yet begun. She has ore bridge operator here with her today and again I [...]
[2024-08-24 13:57] LABS: CT PCR NOT DETECTED (Not Detect.); NG PCR NOT DETECTED (Not Detect.)
[2024-08-24 16:53] LABS: Bacterial Vaginosis PCR NEGATIVE (Negative); Candida Group PCR DETECTED (Not Detect); Candida glab krusei PCR NOT DETECTED (Not Detect); Trichomonas vaginalis PCR NOT DETECTED (Not Detect)
== END 2024-08-23 13:33 | disposition home or self-care (01) ==
LOC: HO.LNP 13:32
PROVIDERS: Visit Provider Obstetrics & Gynecology
DX: Z30.430 Encounter for insertion of intrauterine contraceptive device (principal); N93.9 Abnormal uterine and vaginal bleeding, unspecified
CPT/HCPCS: 58100; 58300; 58301; 81025; 81515; 87491; 87591; 88305; J7298

== ENCOUNTER 2024-09-05 10:36 | Outpatient (AMB) | payer OTHER, SELFPAY ==
--- NOTE | 2024-09-05 10:45 | MHC.OFFVIS ---
Intake Visit Reasons: Ultrasound follow up Hand Booked Folder And Stitcher Required: Yes Hand Booked Folder And Stitcher Language: Shaq Ga Hand Booked Folder And Stitcher Services: Hand Booked Folder And Stitcher Present (Motista) Hand Booked Folder And Stitcher Name: Kris #[id number] Information Interpreted: non-clinical & clinical Java Web Developer: Java Web Developer Present (Hannah Sherwood STEPHANE) Accompanied by: Self / Same As Patient Allergies No Known Allergies Allergy (Verified 08/23/24 13:47) HPI Comments Details: The patient is presenting for co testing and IUD check. The patient has no complaints periods are normal, not painful, and flow is normal. The patient is presenting for follow-up to discuss the results of her abnormal uterine bleeding workup and options of treatment. The following workup was done.: H&H= 13.7/41.9 hCG, GC and chlamydia were negative. Endometrial biopsy pathology showed the following: Superficial fragments of inactive endometrium with extensive breakdown and abundant blood; no atypia or hyperplasia identified Co testing was done was negative. Pelvic ultrasound showed the following: Uterus: The uterus is normal in size, measuring 10.0 x 5.3 x 6.3 cm. Myometrium has a normal echotexture. No fibroids are identified. Endometrium: The endometrial stripe measures 5 mm in thickness. An IUD is seen in the endometrial cavity but appears low-lying, with the transverse portion approximately 1.9 cm from the fundal endometrium with the arms entering the myometrium. Right ovary: The right ovary measures 3.3 x 2.0 x 2.6 cm. The right ovary is normal in size and echotexture. Left ovary: The left ovary measures 4.4 x 2.9 x 2.0 cm. The left ovary is normal in size and echotexture. 08/31 ParaGard IUD removed and replaced with Mirena IUD since then the patient is doing well with no complaints PFSH Surgical History Hx of section Hx of tubal ligation Social History Household Members: Spouse and Children Housing Other:: residential Alcohol intake: never Patient Tobacco Use Status: Never used Tobacco Current occupational status: unemployed Sexual orientation: Straight/Heterosexual Gender identity: Female Review of Systems Const All systems reviewed & are unremarkable except as noted in HPI and below Physical Exam General: Yes no CVA tenderness External Female Exam: normal external appearance and normal appearance of the urethra Speculum Exam - Vagina: normal appearance of the vagina, normal palpation, no lesions and no masses Speculum Exam - Cervix: normal appearance of the cervix, normal palpation, no lesions, no masses, nontender and Other cervical findings present (IUD string see in place) Bimanual exam- vagina & uterus: normal bimanual exam, normal palpation, uterine size normal, normal palpation, uterine shape normal, No Cervical tenderness present and non-tender Bimanual Exam- Adnexa, other: normal adnexae Back/Spine/Pelvis Back: no CVA tenderness Results AMB Test Urine AMB Test Urine Negative Last Edit by Hannah Sherwood CMA on 09/05/24 10:56 Assessment & Plan Assessment & Plan (1) IUD check up: Code(s): Z30.431 - Encounter for routine checking of intrauterine contraceptive device Category: Medical Plan: UPT done in the office was negative. Discussed with the patient the finding on physical exam, IUD string in place, the patient was reassured. Instructions given to patient to call in case of temperature above 100.4, severe cramping/pelvic pain, abnormal discharge or abnormal uterine bleeding or if she misses her menstrual cycle. Otherwise follow-up at her annual exam appointment. All questions answered, the patient verbalized understanding. (2) Abnormal uterine bleeding (AUB): Comment: Resolved Code(s): N93.9 - Abnormal uterine and vaginal bleeding, unspecified Category: Medical Plan: Co testing done. Discussed with the patient the results of the work up done and options of treatment including Lysteda, control pills, Mirena IUD, endometrial ablation and hysterectomy. All pros, cons, risks and benefits if each option was discussed with the patient and the patient decided to stay with Mirena IUD instructions given to patient to call in case of abnormal uterine bleeding and to schedule annual exam appointment. All questions answered, the patient verbalized understanding Orders: Orders Pap Smear Today N93.9 - Abnormal uterine and vaginal bleeding, unspecified, Z30.431 - Encounter for routine checking of intrauterine contraceptive device, Z32.02 - Encounter for test, result negative HPV High risk Today N93.9 - Abnormal uterine and vaginal bleeding, unspecified, Z30.431 - Encounter for routine checking of intrauterine contraceptive device, Z32.02 - Encounter for test, result negative AMB HCG Urine Test Today N93.9 - Abnormal uterine and vaginal bleeding, unspecified, Z30.431 - Encounter for routine checking of intrauterine contraceptive device, Z32.02 - Encounter for test, result negative Coding Level of Care Code Est Pt Level 3 (36857) Diagnoses IUD check up Z30.431 Abnormal uterine bleeding (AUB) N93.9
--- OUTSIDE RECORDS SUMMARY | 2024-09-05 11:57 | XMS_ITS | Continuity of Care Document ---
Author Organization [facility] Address [address] [place] [address] Phone Care Team Providers Care Senior Ux Developer Name Role Phone Jeison Velez MD Unavailable [...] Diagnoses Date Provider Providers Copied on Encounter [facility], [address], [place], [place], [address], tel:[phone] [address] No Information 4 Agustin Mchugh . [address], [facility] [address], [place], [place], [address] , [place]. tel:[phone] Referring Provider: Jeison Velez MD H, [address], [place], [address] . tel:[phone] Office/outpa tient visit,est, mod [facility], [address], [place], [place], [address], [place] tel:[phone] [facility] 400 left shoulder pain (chief complaint) Subacromial impingement, leftLeft shoulder pain, unspecified chronicityPain in left leg 4 Agustin Mchugh . [address], [place], [place], [address] , [place]. tel: [phone] Referring Provider: Jeison Coello, [address], [place], [address] . tel:[phone] Office/outpa tient visit,[facility], [facility], [address], [place], [place], [address], [place] tel:[phone] [facility] 400 left shoulder pain (chief complaint) Left shoulder pain, unspecified chronicitySubacr omial impingement, left Jan- 3 Agustin Mchugh . [address], [place], [place], [address] , [place]. tel: [phone] Referring Provider: Jeison Coello, [address], [place], [address] . tel:[phone] Office/outpa tient visit,[facility], [address], [place], [place], [address], [place] tel:[phone] [facility] 400 left shoulder pain (chief complaint) Left shoulder pain, unspecified chronicitySubacr omial impingement, left 3 Agustin Mchugh . [address], [place], [place], [address] , [place]. tel: [phone] Referring Provider: Jeison Coello, [address], [place], [address] . tel:[phone] Office/outpa tient visit,[facility], [facility], [address], [place], [place], [address], [place] tel:[phone] left shoulder pain (chief complaint) Subacromial impingement, leftLeft shoulder pain, unspecified chronicity Fermin- 3 Agustin Mchugh . [address], [place], [place], [address] , [place]. tel:[phone] Referring Provider: Jeison Velez MD H, [address], [place], [address] . tel:[phone] Office/outpa tient visit,[facility], [address], [place], [place], [address], [place] tel:[phone] left shoulder pain (chief complaint) Subacromial impingement, left Aug- 3 Agustin Mchugh . [address], [place], [place], [address] , [place]. tel:[phone] Referring Provider: Jeison Velez MD H, [address], [place], [address] . tel:[phone] Office/outpa tient visit,[facility], [address], [place], [place], [address], [place] tel:[phone] [facility] [address] left shoulder pain (chief complaint) Left shoulder pain, unspecified chronicitySubacr omial impingement, left Jul- 3 Agustin Mchugh . [address], [place], [place], [address] , [place]. tel:[phone] Referring Provider: Jeison Velez MD H, [address], [place], [address] . tel:[phone] [facility], [address], [place], [place], [address], [place] tel:[phone] [facility] 400 No Information Jul- 3 Agustin Mchugh . [address], [place], [place], [address] , [place]. tel:[phone] Referring Provider: Jeison Velez MD H, [address], [place], [address] . tel:[phone] Family History Family Member Type Diagnosis Age At Onset No Information Payers Payer name Insurance type Covered constitution party ID Authoriza tisam(s) [facility] W/C [id number] Social History Type Description Quantity Date Captured Comments Alcohol Use Details Unknown Caffeine Use Details Unknown Tobacco Use Status No Information Smoking Status No Information Sex Female Chief Complaint And Reason For Visit No Information Reason For Referral Reason For Referral No Information Plan Of Treatment Date Type Action Status Referral Ordered: X-ray exam of neck spine, 2-3 views ordered Referral Ordered: X-ray exam of neck spine, 2-3 views spine, cervical ordered Referral Ordered: X-ray Exam Of Shoulder 2+ Views - Complete LT ordered History Of Present Illness Encounter Date [...] as treatment options through the aid of senior controls analyst. We have ordered physical therapy on multiple occasions. Physical therapy has been spotty at best. I am not sure if it is a communication problem with the patient or with her insurance adjuster. We will go ahead and reorder [...] exam f indings with the aid of senior controls analyst as well as her nurse case reviewer. She appears to be improving but still [...] but has not yet begun. She has senior controls analyst here with her today and again I [...]
== END 2024-09-05 11:10 | disposition home or self-care (01) ==
LOC: HO.HWS 10:36
PROVIDERS: Visit Provider Obstetrics & Gynecology
DX: Z32.02 Encounter for pregnancy test, result negative (principal); Z30.431 Encounter for routine checking of intrauterine contraceptive device; N93.9 Abnormal uterine and vaginal bleeding, unspecified

== ENCOUNTER 2024-09-05 10:36 | Outpatient (REF) | payer OTHER, SELFPAY ==
--- OUTSIDE RECORDS SUMMARY | 2024-09-05 12:29 | XMS_ITS | Continuity of Care Document ---
Author Organization [facility] Address [address] [place] [address] Phone Care Team Providers Care Supervisor Tubing Name Role Phone Jeison Velez MD Unavailable [...] Diagnoses Date Provider Providers Copied on Encounter [facility], [address], [place], [place], [address], tel:[phone] [address] No Information 4 Agustin Mchugh . [address], [facility] [address], [place], [place], [address] , [place]. tel:[phone] Referring Provider: Jeison Velez MD H, [address], [place], [address] . tel:[phone] Office/outpa tient visit,est, mod [facility], [address], [place], [place], [address], [place] tel:[phone] [facility] 400 left shoulder pain (chief complaint) Subacromial impingement, leftLeft shoulder pain, unspecified chronicityPain in left leg 4 Agustin Mchugh . [address], [place], [place], [address] , [place]. tel: [phone] Referring Provider: Jeison Coello, [address], [place], [address] . tel:[phone] Office/outpa tient visit,[facility], [facility], [address], [place], [place], [address], [place] tel:[phone] [facility] 400 left shoulder pain (chief complaint) Left shoulder pain, unspecified chronicitySubacr omial impingement, left Jan- 3 Agustin Mchugh . [address], [place], [place], [address] , [place]. tel: [phone] Referring Provider: Jeison Coello, [address], [place], [address] . tel:[phone] Office/outpa tient visit,[facility] [place], [address], [place], [place], [address], [place] tel:[phone] [facility] 400 left shoulder pain (chief complaint) Left shoulder pain, unspecified chronicitySubacr omial impingement, left 3 Agustin Mchugh . [address], [place], [place], [address] , [place]. tel: [phone] Referring Provider: Jeison Coello, [address], [place], [address] . tel:[phone] Office/outpa tient visit,[facility], [facility], [address], [place], [place], [address], [place] tel:[phone] left shoulder pain (chief complaint) Subacromial impingement, leftLeft shoulder pain, unspecified chronicity Fermin- 3 Agustin Mchugh . [address], [place], [place], [address] , [place]. tel:[phone] Referring Provider: Jeison Velez MD H, [address], [place], [address] . tel:[phone] Office/outpa tient visit,[facility] [place], [address], [place], [place], [address], [place] tel:[phone] left shoulder pain (chief complaint) Subacromial impingement, left Aug- 3 Agustin Mchugh . [address], [place], [place], [address] , [place]. tel:[phone] Referring Provider: Jeison Velez MD H, [address], [place], [address] . tel:[phone] Office/outpa tient visit,[facility], [address], [place], [place], [address], [place] tel:[phone] [facility] - [address] left shoulder pain (chief complaint) Left shoulder pain, unspecified chronicitySubacr omial impingement, left Jul- 3 Agustin Mchugh . [address], [place], [place], [address] , [place]. tel:[phone] Referring Provider: Jeison Velez MD H, [address], [place], [address] . tel:[phone] [facility], [address], [place], [place], [address], [place] tel:[phone] [facility] 400 No Information Jul- 3 Agustin Mchugh . [address], [place], [address] , [place]. tel:[phone] Referring Provider: Jeison Velez MD H, [address], [place], [address] . tel:[phone] Family History Family Member Type Diagnosis Age At Onset No Information Payers Payer name Insurance type Covered alliance party ID Authoriza tisam(s) [facility] W/C [id number] Social History Type Description Quantity Date Captured [...] as treatment options through the aid of radiology technician. We have ordered physical therapy on multiple occasions. Physical therapy has been spotty at best. I am not sure if it is a communication problem with the patient or with her gas adjuster. We will go ahead and reorder [...] exam f indings with the aid of radiology technician as well as her nurse case finishing machine adjuster. She appears to be improving but still [...] but has not yet begun. She has radiology technician here with her today and again I [...]
[2024-09-11 14:07] LABS: HPV Genotype 16 Negative (Negative); HPV Genotype 18 Negative (Negative); HPV High Risk Negative (Negative)
== END 2024-09-05 10:37 | disposition home or self-care (01) ==
LOC: HO.LNP 10:36
PROVIDERS: Visit Provider Obstetrics & Gynecology
DX: Z32.02 Encounter for pregnancy test, result negative (principal); Z30.431 Encounter for routine checking of intrauterine contraceptive device; N93.9 Abnormal uterine and vaginal bleeding, unspecified
CPT/HCPCS: 81025; 87626; 88175

== ENCOUNTER 2024-09-25 10:35 | Emergency (ER) | payer OTHER, SELFPAY ==
--- NOTE | ~2024-09-25 | CT_ITS ---
EXAMINATION: CT HEAD WITHOUT IV CONTRAST HISTORY: headache, syncope. TECHNIQUE: Unenhanced helical CT of the head was performed per standard departmental protocol. Coronal and sagittal reformats of the head were also evaluated. One or more of the following techniques was used for dose reduction: Automated exposure control, adjustment of the mA and/or kV according to patient size, use of iterative reconstruction technique. DLP: 711 mGy-cm COMPARISON: There are no prior studies for comparison. FINDINGS: BRAIN: The brain parenchyma is unremarkable. There is normal thomas/white differentiation. The ventricular system is normal in size and configuration. There is no mass effect or midline shift. No intra- or extra-axial fluid collections are identified. SINUSES: There is fluid and mucosal thickening in left maxillary sinus. The mastoid air cells and middle ear cavities are well pneumatized. ORBITS: The visualized orbits are unremarkable. BONES/SOFT TISSUES: The extracranial soft tissues are unremarkable. The calvarium is intact. No suspicious lytic or sclerotic lesions. CT/CT head/brain wo IV con IMPRESSION: 1. Unremarkable unenhanced head CT. 2. Acute left maxillary sinusitis. Electronically signed by: Raúl Henderson MD 09/25/2024 01:22 PM EDT
[2024-09-25 11:02] VITALS: BP 128/90; BP 138/83; PULSE 108; PULSE 96; RESP 18; TEMP 36.4; O2SAT 95; O2SAT 97; BMI 28.9
--- NOTE | 2024-09-25 11:05 | PC.NURSE ---
jose woodson sharepoint developer chantel [id number] was used
--- NOTE | 2024-09-25 11:08 | ECG_ITS ---
Test Reason : cp Blood Pressure : */* mmHG Vent. Rate : 94 BPM Atrial Rate : 94 BPM P-R Int : 180 ms QRS Dur : 80 ms QT Int : 338 ms P-R-T Axes : 63 -8 55 degrees QTcB Int : 422 ms Normal sinus rhythm Moderate voltage criteria for LVH, may be normal variant ( R in aVL , [place] product ) Nonspecific T wave abnormality Abnormal ECG When compared with ECG of 30-Jul-2024 23:48, No significant change was found Referred By: Generic ED Physician Electronically Signed By: cA Palomino
[2024-09-25 11:36] VITALS: BP 138/89; PULSE 91; RESP 20; O2SAT 95
[2024-09-25 11:52] LABS: Basophils Percent Auto 0.6 % (0-2); Eosinophils Absolute Auto 0.1 X10*3/uL (0.0-0.4); Eosinophils Percent Auto 1.7 % (0-4); Hematocrit 44.7 % (37.0-47.0); Imm Gran Abs Auto 0.01 X10*3/uL (0.00-0.03); Imm Gran Pct Auto 0.2 % (0.0-0.4); Lymphocytes Absolute Auto 1.1 X10*3/uL (1.2-4.9); Lymphocytes Percent Auto 20.8 % (20-40); MANUAL DIFF FLAG NO; Mean Corpuscular HGB Conc 33.6 g/dl (31.0-35.0); Mean Corpuscular Hemoglobin 26.6 pg (27.0-33.0); Mean Corpuscular Volume 79.4 fL (80.0-98.0); Mean Platelet Volume 9.9 fL (9.4-12.3); Monocytes Absolute Auto 0.5 X10*3/uL (0.1-1.2); Monocytes Percent Auto 8.7 % (2-11); Neutrophils Absolute Auto 3.5 x10*3/uL (2.0-8.3); Platelet Count 300 X10*3/uL (160-400); Red Blood Count 5.63 X10*6/uL (4.20-5.50); Red Cell Distribution Width 13.5 % (11.0-16.0); White Blood Count 5.2 X10*3/uL (4.8-10.8)
[2024-09-25 12:08] LABS: Anion Gap 13 (12-20); Blood Urea Nitrogen 8 mg/dL (9-16); Calcium 9.9 mg/dL (8.4-10.2); Carbon Dioxide 28 mmol/L (22-29); Chloride 102 mmol/L (96-108); Creatinine Clr Calc Pharmacy 105.7; Estimated Glomerular Filt Rate > 60; Glucose Random 102 mg/dL (60-115); Potassium 4.7 mmol/L (3.3-5.1); Sodium 138 mmol/L (135-145)
[2024-09-25 12:17] LABS: Troponin-I High Sensitivity < 2.7 ng/L (<3.5-17.0)
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
--- OUTSIDE RECORDS SUMMARY | 2024-09-25 13:23 | XMS_ITS | Continuity of Care Document ---
Author Organization [facility] Address [address] [place] [address] Phone Care Team Providers Care Spinner Frame Name Role Phone Jeison Velez MD Unavailable [...] Diagnoses Date Provider Providers Copied on Encounter [facility], [address], [place], [place], [address], tel:[phone] [phone] No Information 4 Agustin Mchugh . [address], [facility] [address], [place], [place], [address] , [place]. tel:[phone] Referring Provider: Jeison Velez MD H, [address], [place], [address] . tel:[phone] Office/outpa tient visit,est, mod [facility], [address], [place], [place], [address], [place] tel:[phone] [facility] [address] left shoulder pain (chief complaint) Subacromial impingement, leftLeft shoulder pain, unspecified chronicityPain in left leg 4 Agustin Mchugh . [address], [place], [place], [address] , [place]. tel: [phone] Referring Provider: Jeison Coello, [address], [place], [address] . tel:[phone] Office/outpa tient visit,[facility], [facility], [address], [place], [place], [address], [place] tel:[phone] [facility] 400 left shoulder pain (chief complaint) Left shoulder pain, unspecified chronicitySubacr omial impingement, left Jan- 3 Agustin Mchugh . [address], [place], [place], [address] , [place]. tel: [phone] Referring Provider: Jeison Coello, [address], [place], [address] . tel:[phone] Office/outpa tient visit,[facility], [address], [place], [place], [address], [place] tel:[phone] [facility] 400 left shoulder pain (chief complaint) Left shoulder pain, unspecified chronicitySubacr omial impingement, left 3 Agustin Mchugh . [address], [place], [place], [address] , [place]. tel: [phone] Referring Provider: Jeison Coello, [address], [place], [address] . tel:[phone] Office/outpa tient visit,[facility], [facility], [address], [place], [place], [address], [place] tel:[phone] left shoulder pain (chief complaint) Subacromial impingement, leftLeft shoulder pain, unspecified chronicity Fermin- 3 Agustin Mchugh . [address], [place], [place], [address] , [place]. tel:[phone] Referring Provider: Jeison Velez MD H, [address], [place], [address] . tel:[phone] Office/outpa tient visit,[facility], [address], [place], [place], [address], [place] tel:[phone] left shoulder pain (chief complaint) Subacromial impingement, left Aug- 3 Agustin Mchugh . [address], [place], [place], [address] , [place]. tel:[phone] Referring Provider: Jeison Velez MD H, [address], [place], [address] . tel:[phone] Office/outpa tient visit,[facility], [address], [place], [place], [address], [place] tel:[phone] [facility] [address] left shoulder pain (chief complaint) Left shoulder pain, unspecified chronicitySubacr omial impingement, left Jul- 3 Agustin Mchugh . [address], [place], [place], [address] , [place]. tel:[phone] Referring Provider: Jeison Velez MD H, [address], [place], [address] . tel:[phone] [facility], [address], [place], [place], [address], [place] tel:[phone] [facility] 400 No Information Jul- 3 Agustin Mchugh . [address], [place], [place], [address] , [place]. tel:[phone] Referring Provider: Jeison Velez MD H, [address], [place], [address] . tel:[phone] Family History Family Member Type Diagnosis Age At Onset No Information Payers Payer name Insurance type Covered green party ID Authoriza tisam(s) [facility] W/C [id number] Social History Type Description Quantity Date Captured [...] as treatment options through the aid of [employer]. We have ordered physical therapy on multiple [...] exam f indings with the aid of [employer] as well as her nurse case assembler. She appears to be improving but still [...] but has not yet begun. She has [employer] here with her today and again I [...]
[2024-09-25] MEDS: Acetaminophen 325 MG TABLET 975 MG PO (13:52)
[2024-09-25] MEDS: 0.9 % Sodium Chloride 1,000 ML 999 ML IV (13:53)
--- NOTE | 2024-09-25 13:55 | PC.NURSE ---
patient sleeping, wakes to verbal stimulus, ivf started per order, pt medicated per order, quality assurance monitor final nsr 90s, family at bedside, call hong within reach, plan of care ongoing
[2024-09-25 16:07] VITALS: BP 127/88; PULSE 80; RESP 19; O2SAT 96
[2024-09-25 17:45] VITALS: BP 126/88; PULSE 88; RESP 18; TEMP 36.7; O2SAT 97
--- NOTE | 2024-09-25 17:47 | PC.NURSE ---
hospital medical [facility]er rosendo [id number] used for amanda woodson
== END 2024-09-25 17:47 | disposition home or self-care (01) ==
PROVIDERS: Emergency Provider Emergency Medicine
DX: R55 Syncope and collapse (principal); R11.0 Nausea; R51.9 Headache, unspecified; R07.89 Other chest pain; Z79.899 Other long term (current) drug therapy
CPT/HCPCS: 36415; 70450; 80048; 84484; 85025; 93005; 96360; 99284; 99285

== ENCOUNTER → 2024-09-25 11:08 | Outpatient (BNV) | payer OTHER, SELFPAY | PROVIDERS: Emergency Provider Emergency Medicine; Visit Provider Internal Medicine Cardiovascular Disease | DX: R94.31 Abnormal electrocardiogram [ECG] [EKG] (principal); R07.9 Chest pain, unspecified | CPT/HCPCS: 93010 ==

== ENCOUNTER → 2024-09-25 13:01 | Outpatient (BNV) | payer OTHER, SELFPAY | PROVIDERS: Emergency Provider Emergency Medicine; Visit Provider Radiology Diagnostic Radiology | DX: R55 Syncope and collapse (principal) | CPT/HCPCS: 70450 ==

== ENCOUNTER 2024-09-28 09:42 | Outpatient (AMB) | payer OTHER, SELFPAY ==
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
--- OUTSIDE RECORDS SUMMARY | 2024-09-28 09:57 | XMS_ITS | Continuity of Care Document ---
Author Organization [facility] Address [address] [place] [address] Phone Care Team Providers Care Asphalt Roller Person Name Role Phone Jeison Velez MD Unavailable [...] Diagnoses Date Provider Providers Copied on Encounter [facility], [address], [place], [place], [address], tel:[phone] [phone] No Information 4 Agustin Mchugh . [address], [facility] [address], [place], [place], [address] , [place]. tel:[phone] Referring Provider: Jeison Velez MD H, [address], [place], [address] . tel:[phone] Office/outpa tient visit,est, mod [facility], [address], [place], [place], [address], [place] tel:[phone] [facility] 400 left shoulder pain (chief complaint) Subacromial impingement, leftLeft shoulder pain, unspecified chronicityPain in left leg 4 Agustin Mchugh . [address], [place], [place], [address] , [place]. tel: [phone] Referring Provider: Jeison Coello, [address], [place], [address] . tel:[phone] Office/outpa tient visit,[facility], [facility], [address], [place], [place], [address], [place] tel:[phone] [facility] 400 left shoulder pain (chief complaint) Left shoulder pain, unspecified chronicitySubacr omial impingement, left Jan- 3 Agustin Mchugh . [address], [place], [address] , [place]. tel: [phone] Referring Provider: Jeison Coello, [address], [place], [address] . tel:[phone] Office/outpa tient visit,[facility], [address], [place], [place], [address], [place] tel:[phone] [facility] 400 left shoulder pain (chief complaint) Left shoulder pain, unspecified chronicitySubacr omial impingement, left 3 Agustin Mchugh . [address], [place], [place], [address] , [place]. tel: [phone] Referring Provider: Jeison Coello, [address], [place], [address] . tel:[phone] Office/outpa tient visit,[facility], [facility], [address], [place], [place], [address], [place] tel:[phone] left shoulder pain (chief complaint) Subacromial impingement, leftLeft shoulder pain, unspecified chronicity Fermin- 3 Agustin Mchugh . [address], [place], [place], [address] , [place]. tel:[phone] Referring Provider: Jeison Velez MD H, [address], [place], [address] . tel:[phone] Office/outpa tient visit,[facility], [address], [place], [place], [address], [place] tel:[phone] left shoulder pain (chief complaint) Subacromial impingement, left Aug- 3 Agustin Mchugh . [address], [place], [place], [address] , [place]. tel:[phone] Referring Provider: Jeison Velez MD H, [address], [place], [address] . tel:[phone] Office/outpa tient visit,[facility], [address], [place], [place], [address], [place] tel:[phone] [facility] [address] left shoulder pain (chief complaint) Left shoulder pain, unspecified chronicitySubacr omial impingement, left Jul- 3 Agustin Mchugh . [address], [place], [place], [address] , [place]. tel:[phone] Referring Provider: Jeison Velez MD H, [address], [place], [address] . tel:[phone] [facility], [address], [place], [place], [address], [place] tel:[phone] [facility] 400 No Information Jul- 3 Agustin Mchugh . [address], [place], [place], [address] , [place]. tel: [phone] Referring Provider: Jeison Velez MD H, [address], [place], [address] . tel:[phone] Family History Family Member Type Diagnosis Age At Onset No Information Payers Payer name Insurance type Covered republican ID Authoriza tisam(s) [facility] W/C [id number] Social History Type Description Quantity Date Captured [...] as treatment options through the aid of electrical test technician. We have ordered physical therapy on multiple occasions. Physical therapy has been spotty at best. I am not sure if it is a communication problem with the patient or with her extrusion press adjuster. We will go ahead and reorder [...] exam f indings with the aid of electrical test technician as well as her nurse welfare case worker. She appears to be improving [...] but has not yet begun. She has electrical test technician here with her today and again [...]
[2024-09-28 09:59] VITALS: BP 120/76; PULSE 90; O2SAT 98; BMI 28.3
== END 2024-09-28 11:23 | disposition home or self-care (01) ==
LOC: HO.HSMS 09:43
PROVIDERS: Visit Provider Nurse Practitioner Family
DX: R55 Syncope and collapse (principal); F41.9 Anxiety disorder, unspecified; G43.009 Migraine without aura, not intractable, without status migrainosus; R06.83 Snoring; G47.9 Sleep disorder, unspecified
CPT/HCPCS: 99204

== ENCOUNTER → 2024-09-28 09:42 | Outpatient (BNVA) | payer OTHER, SELFPAY | PROVIDERS: Visit Provider Nurse Practitioner Family | DX: G43.009 Migraine without aura, not intractable, without status migrainosus (principal); R55 Syncope and collapse; F41.9 Anxiety disorder, unspecified; R06.83 Snoring | CPT/HCPCS: 99202 ==

== ENCOUNTER 2024-10-09 08:44 | Outpatient (AMB) | payer OTHER, SELFPAY ==
[2024-10-09 08:52] VITALS: BMI 28.3
--- NOTE | 2024-10-09 08:52 | A.OFFVIS_ITS ---
Vital Signs 10/09/24 08:52 Height 5 ft 7 in Weight 181 lb BMI 28.3 Intake Visit Reasons: IUD follow up/EMB results/Pap smear Extension Division Director Required: Yes Extension Division Director Language: Honduran Creaydin Extension Division Director Services: Extension Division Director Present (Demeure) Extension Division Director Name: Josesito #[id number] Information Interpreted: non-clinical & clinical Deli Associate: Deli Associate Present (Hannah CALDERÓN) Accompanied by: Self / Same As Patient Allergies No Known Allergies Allergy (Verified 10/09/24 08:57) Is last menstrual period known: No (mirena) HPI Comments Details: The patient is presenting for IUD check after 1 st period following IUD insertion. The patient has no complaints periods are normal, not painful, and flow is normal. [facility] Surgical History Hx of section Hx of tubal ligation Social History Household Members: Spouse and Children Housing Other:: half-way Alcohol intake: never Patient Tobacco Use Status: Never used Tobacco Current occupational status: unemployed Sexual orientation: Straight/Heterosexual Gender identity: Female Review of Systems Const All systems reviewed & are unremarkable except as noted in HPI and below Physical Exam Vital Signs: BMI result Body Mass Index 28.3 General: Yes no CVA tenderness External Female Exam: normal external appearance and normal appearance of the urethra Speculum Exam - Vagina: normal appearance of the vagina, normal palpation, no lesions and no masses Speculum Exam - Cervix: normal appearance of the cervix, normal palpation, no lesions, no masses, nontender and Other cervical findings present (IUD string not seen) Bimanual exam- vagina & uterus: normal bimanual exam, normal palpation, uterine size normal, normal palpation, uterine shape normal, No Cervical tenderness present and non-tender Bimanual Exam- Adnexa, other: normal adnexae Back/Spine/Pelvis Back: no CVA tenderness Results AMB Test Urine AMB Test Urine Negative Last Edit by Hannah Sherwood CMA on 09:17 Results Reviewed Results Reviewed: Laboratory Last Values Tst Clinic Negative 10/09/24 09:16 Assessment & Plan Assessment & Plan (1) IUD strings lost: Code(s): T83.32XA - Displacement of intrauterine contraceptive device, initial encounter Category: Medical Plan: UPT done in the office was negative. Discussed with the patient the finding on pelvic exam lost IUD string, pelvic ultrasound ordered. Instructions given the patient is schedule ultrasound and a follow-up appointment. Orders: Orders AMB HCG Urine Test Today Z32.02 - Encounter for test, result negative US pelvic and transvaginal Today T83.32XA - Displacement of intrauterine contraceptive device, initial encounter Coding Level of Care Code Est Pt Level 3 (22658) Diagnoses IUD strings lost T83.32XA
--- OUTSIDE RECORDS SUMMARY | 2024-10-09 09:13 | XMS_ITS | Continuity of Care Document ---
Author Organization [facility] Address [address] [place] [address] Phone Care Team Providers Care Fuel Cell Technician Name Role Phone Jeison Velez MD Unavailable [...] Diagnoses Date Provider Providers Copied on Encounter [facility], [address], [place], [place], [id number], tel:[phone] [phone] No Information 4 Agustin Mcuhgh . [address], [facility] [address], [place], [place], [address] , [place]. tel:[phone] Referring Provider: Jeison Velez MD H, [address], [place], [address] . tel:[phone] Office/outpa tient visit,est, mod [facility], [address], [place], [place], [address], [place] tel:[phone] [facility] [address] left shoulder pain (chief complaint) Subacromial impingement, leftLeft shoulder pain, unspecified chronicityPain in left leg 4 Agustin Mchugh . [address], [place], [place], [address] , [place]. tel: [phone] Referring Provider: Jeison Coello, [address], [place], [address] . tel:[phone] Office/outpa tient visit,[facility], [facility], [address], [place], [place], [id number], [place] tel:[phone] [facility] [address] left shoulder pain (chief complaint) Left shoulder pain, unspecified chronicitySubacr omial impingement, left Jan- 3 Agustin Mchugh . [address], [place], [place], [address] , [place]. tel: [phone] Referring Provider: Jeison Coello, [address], [place], [address] . tel:[phone] Office/outpa tient visit,[facility], [address], [place], [place], [address], [place] tel:[phone] [facility] 400 left shoulder pain (chief complaint) Left shoulder pain, unspecified chronicitySubacr omial impingement, left 3 Agustin Mchugh . [address], [place], [place], [address] , [place]. tel: [phone] Referring Provider: Jeison Coello, [address], [place], [address] . tel:[phone] Office/outpa tient visit,[facility], [facility], [address], [place], [place], [address], [place] tel:[phone] left shoulder pain (chief complaint) Subacromial impingement, leftLeft shoulder pain, unspecified chronicity Fermin- 3 Agustin Mchugh . [address], [place], [place], [address] , [place]. tel:[phone] Referring Provider: Jeison Velez MD H, [address], [place], [address] . tel:[phone] Office/outpa tient visit,[facility], [address], [place], [place], [address], [place] tel:[phone] left shoulder pain (chief complaint) Subacromial impingement, left Aug- 3 Agustin Mchugh . [address], [place], [place], [address] , [place]. tel:[phone] Referring Provider: Jeison Velez MD H, [address], [place], [address] . tel:[phone] Office/outpa tient visit,[facility], [address], [place], [place], [address], [place] tel:[phone] [facility] [address] left shoulder pain (chief complaint) Left shoulder pain, unspecified chronicitySubacr omial impingement, left Jul- 3 Agustin Mchugh . [address], [place], [place], [address] , [place]. tel:[phone] Referring Provider: Jeison Velez MD H, [address], [place], [address] . tel:[phone] [facility], [address], [place], [place], [address], [place] tel:[phone] [facility] 400 No Information Jul- 3 Agustin Mchugh . [address], [place], [place], [address] , [place]. tel:[phone] Referring Provider: Jeison Velez MD H, [address], [place], [address] . tel:[phone] Family History Family Member Type Diagnosis Age At Onset No Information Payers Payer name Insurance type Covered alliance party ID Authoriza tisam(s) [facility] W/C [id number] Social History Type Description Quantity Date Captured [...] as treatment options through the aid of reservoir engineering manager. We have ordered physical therapy on multiple occasions. Physical therapy has been spotty at best. I am not sure if it is a communication problem with the patient or with her anode adjuster. We will go ahead and reorder [...] exam f indings with the aid of reservoir engineering manager as well as her nurse case packer. She appears to be improving but still [...] but has not yet begun. She has reservoir engineering manager here with her today and again [...]
== END 2024-10-09 10:44 | disposition home or self-care (01) ==
LOC: HO.HWS 08:44
PROVIDERS: Visit Provider Obstetrics & Gynecology
DX: T83.32XA Displacement of intrauterine contraceptive device, initial encounter (principal); Z32.02 Encounter for pregnancy test, result negative
CPT/HCPCS: 99213

== ENCOUNTER 2024-10-09 16:02 | Outpatient (REF) | payer OTHER, SELFPAY ==
--- NOTE | ~2024-10-09 | US_ITS ---
EXAMINATION: US PELVIS TRANSABDOMINAL AND TRANSVAGINAL HISTORY: T83.32XA - Displacement of intrauterine contraceptive device, initial en... COMPARISON: Comparison is made with the prior examination dated 08/22/2024. TECHNIQUE: Transabdominal real-time 2D thomas-scale ultrasound was performed. FINDINGS: Uterus: The uterus is normal in size, measuring 13.7 x 4.9 x 7.0 cm. Myometrium has a normal echotexture. No fibroids are identified. Endometrium: The endometrial stripe measures 4 mm in thickness. An IUD is noted in appropriate position in the endometrial cavity. Right ovary: The right ovary measures 2.9 x 2.1 x 1.6 cm. The right ovary is normal in size and echotexture. Left ovary: The left ovary measures 8.9 x 4.5 x 3.8 cm. There are 2 cysts noted measuring 4.4 x 3.8 x 3.5 cm and 3.1 x 2.5 x 2.7 cm. Pelvic fluid: none. US/US pelvic and transvaginal IMPRESSION: 1. IUD in appropriate position in the endometrial cavity. 2. Left ovarian cysts as described. Follow-up is recommended to document resolution. Electronically signed by: Raúl Henderson MD 10/10/2024 07:31 AM EDT
== END 2024-10-09 16:03 | disposition home or self-care (01) ==
LOC: HO.US 16:02
PROVIDERS: Visit Provider Obstetrics & Gynecology
DX: T83.32XA Displacement of intrauterine contraceptive device, initial encounter (principal)
CPT/HCPCS: 76830; 76856; 81025; 99212

== ENCOUNTER → 2024-10-09 16:08 | Outpatient (BNV) | payer OTHER, SELFPAY | PROVIDERS: Visit Provider Radiology Diagnostic Radiology | DX: N83.202 Unspecified ovarian cyst, left side (principal); Z97.5 Presence of (intrauterine) contraceptive device | CPT/HCPCS: 76830; 76856 ==

== ENCOUNTER 2024-10-11 14:27 | Outpatient (AMB) | payer OTHER, SELFPAY ==
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
[2024-10-11 14:47] VITALS: BP 110/72; PULSE 90; BMI 28.9
--- OUTSIDE RECORDS SUMMARY | 2024-10-11 17:07 | XMS_ITS | Continuity of Care Document ---
Author Organization [facility] Address [address] [place] [address] Phone Care Team Providers Care Embedded Software Development Engineer Name Role Phone Jeison Velez MD Unavailable [...] Diagnoses Date Provider Providers Copied on Encounter [facility], [address], [place], [place], [address], tel:[phone] [address] No Information 4 Agustin Mchugh . [address], [facility] [address], [place], [place], [address] , [place]. tel:[phone] Referring Provider: Jeison Velez MD H, [address], [place], [address] . tel:[phone] Office/outpa tient visit,est, mod [facility], [address], [place], [place], [address], [place] tel:[phone] [facility] [address] left shoulder pain (chief complaint) Subacromial impingement, leftLeft shoulder pain, unspecified chronicityPain in left leg 4 Agustin Mchugh . [address], [place], [place], [address] , [place]. tel: [phone] Referring Provider: Jeison Coello, [address], [place], [address] . tel:[phone] Office/outpa tient visit,[facility], [facility], [address], [place], [place], [address], [place] tel:[phone] [facility] [address] left shoulder pain (chief complaint) Left shoulder pain, unspecified chronicitySubacr omial impingement, left Jan- 3 Agustin Mchugh . [address], [place], [place], [address] , [place]. tel: [phone] Referring Provider: Jeison Coello, [address], [place], [address] . tel:[phone] Office/outpa tient visit,[facility], [address], [place], [place], [address], [place] tel:[phone] [facility] 400 left shoulder pain (chief complaint) Left shoulder pain, unspecified chronicitySubacr omial impingement, left 3 Agustin Mchugh . [address], [place], [place], [address] , [place]. tel: [phone] Referring Provider: Jeison Coello, [address], [place], [address] . tel:[phone] Office/outpa tient visit,[facility], [facility], [address], [place], [place], [address], [place] tel:[phone] left shoulder pain (chief complaint) Subacromial impingement, leftLeft shoulder pain, unspecified chronicity Fermin- 3 Agustin Mchugh . [address], [place], [place], [address] , [place]. tel:[phone] Referring Provider: Jeison Velez MD H, [address], [place], [address] . tel:[phone] Office/outpa tient visit,[facility], [address], [place], [place], [address], [place] tel:[phone] left shoulder pain (chief complaint) Subacromial impingement, left Aug- 3 Agustin Mchugh . [address], [place], [place], [address] , [place]. tel:[phone] Referring Provider: Jeison Velez MD H, [address], [place], [address] . tel:[phone] Office/outpa tient visit,[facility], [address], [place], [place], [address], [place] tel:[phone] [facility] [address] left shoulder pain (chief complaint) Left shoulder pain, unspecified chronicitySubacr omial impingement, left Jul- 3 Agustin Mhcugh . [address], [place], [place], [address] , [place]. tel:[phone] Referring Provider: Jeison Velez MD H, [address], [place], [address] . tel:[phone] [facility], [address], [place], [place], [address], [place] tel:[phone] [facility] 400 No Information Jul- 3 Agustin Mchugh . [address], [place], [place], [address] , [place]. tel:[phone] Referring Provider: Jeison Velez MD H, [address], [place], [address] . tel:[phone] Family History Family Member Type Diagnosis Age At Onset No Information Payers Payer name Insurance type Covered constitution party ID Authoriza tisam(s) [facility] W/C [id number] Social History Type Description Quantity Date Captured [...] as treatment options through the aid of mica laminating machine feeder. We have ordered physical therapy on multiple occasions. Physical therapy has been spotty at best. I am not sure if it is a communication problem with the patient or with her hydraulic jack adjuster. We will go ahead and reorder [...] exam f indings with the aid of mica laminating machine feeder as well as her nurse correctional casework specialist. She appears to be improving but still [...] but has not yet begun. She has mica laminating machine feeder here with her today and again I [...]
== END 2024-10-11 15:13 | disposition home or self-care (01) ==
LOC: HO.HCS 14:28
DX: R07.9 Chest pain, unspecified (principal); R06.02 Shortness of breath; R42 Dizziness and giddiness; Z09 Encounter for follow-up examination after completed treatment for conditions other than malignant neoplasm; R94.31 Abnormal electrocardiogram [ECG] [EKG]
CPT/HCPCS: 93010; 99214; G2211

== ENCOUNTER → 2024-10-11 14:27 | Outpatient (BNVA) | payer OTHER, SELFPAY | DX: Z09 Encounter for follow-up examination after completed treatment for conditions other than malignant neoplasm (principal); R42 Dizziness and giddiness; R06.02 Shortness of breath; R07.9 Chest pain, unspecified; G47.33 Obstructive sleep apnea (adult) (pediatric); Z59.01 Sheltered homelessness | CPT/HCPCS: 93005; 99212 ==

== ENCOUNTER 2024-10-23 08:31 | Outpatient (AMB) | payer OTHER, SELFPAY ==
--- NOTE | 2024-10-23 08:32 | A.OFFVIS_ITS ---
Vital Signs 10/23/24 08:34 Height 5 ft 7 in Weight 184 lb BMI 28.8 Intake Visit Reasons: US follow up Window Shade Installer Required: Yes Window Shade Installer Language: Shaq Ga Window Shade Installer Services: Window Shade Installer Present ([facility]) Window Shade Installer Name: Charles #[id number] Information Interpreted: non-clinical & clinical Accompanied by: Self / Same As Patient Allergies No Known Allergies Allergy (Verified 10/23/24 08:36) HPI Comments Details: Presenting for ultrasound follow-up regarding IUD not seen during pelvic exam. Pelvic ultrasound done recently showed the following: Uterus: The uterus is normal in size, measuring 13.7 x 4.9 x 7.0 cm. Myometrium has a normal echotexture. No fibroids are identified. Endometrium: The endometrial stripe measures 4 mm in thickness. An IUD is noted in appropriate position in the endometrial cavity. Right ovary: The right ovary measures 2.9 x 2.1 x 1.6 cm. The right ovary is normal in size and echotexture. Left ovary: The left ovary measures 8.9 x 4.5 x 3.8 cm. There are 2 cysts noted measuring 4.4 x 3.8 x 3.5 cm and 3.1 x 2.5 x 2.7 cm. Pelvic fluid: none. US/US pelvic and transvaginal IMPRESSION: 1. IUD in appropriate position in the endometrial cavity. 2. Left ovarian cysts as described. Follow-up is recommended to document resolution. PFSH Surgical History Hx of section Hx of tubal ligation Family History Father No problems noted. Mother No problems noted. Social History Household Members: Spouse and Children Housing Other:: prison Alcohol intake: never Patient Tobacco Use Status: Never used Tobacco Current occupational status: unemployed Sexual orientation: Straight/Heterosexual Gender identity: Female Review of Systems Const All systems reviewed & are unremarkable except as noted in HPI and below Reports as per HPI and Reports no additional complaints GI Reports no additional complaints Reports no additional complaints Physical Exam Vital Signs: BMI result Body Mass Index 28.8 Assessment & Plan Assessment & Plan (1) IUD check up: Code(s): Z30.431 - Encounter for routine checking of intrauterine contraceptive device Category: Medical Plan: Discussed with the patient the finding on ultrasound showing IUD in appropriate position, the patient was reassured. Instructions given to patient to call in case of temperature above 100.4, severe cramping/pelvic pain, abnormal discharge or abnormal uterine bleeding or if she misses her menstrual cycle. Otherwise follow-up at her annual exam appointment. All questions answered, the patient verbalized understanding. (2) Ovarian cyst: Code(s): N83.209 - Unspecified ovarian cyst, unspecified side Category: Medical Plan: Discussed with the patient the finding on ultrasound showing 2 left ovarian cysts, recommended ultrasound in 3 months to document resolution. Instructions given the patient to schedule an US follow up appointment in 3 monts and to call in case of pelvic pain and or abnormal bleeding or any other concerns. All questions answered, the patient verbalized understanding. Orders: Orders US pelvic and transvaginal 3 Months N83.209 - Unspecified ovarian cyst, unspecified side Coding Level of Care Code Est Pt Level 3 (99523) Diagnoses IUD check up Z30.431 Ovarian cyst N83.209
[2024-10-23 08:34] VITALS: BMI 28.8
--- OUTSIDE RECORDS SUMMARY | 2024-10-23 08:48 | XMS_ITS | Continuity of Care Document ---
Author Organization [facility] Address [address] [place] [address] Phone Care Team Providers Care Dat Instructor Name Role Phone Jeison Velez MD Unavailable [...] Diagnoses Date Provider Providers Copied on Encounter [facility], [address], [place], [place], [address], tel:[phone] [address] No Information 4 Agustin Mchugh . [address], [facility] [address], [place], [place], [address] , [place]. tel:[phone] Referring Provider: Jeison Velez MD H, [address], [place], [address] . tel:[phone] Office/outpa tient visit,est, mod [facility], [address], [place], [place], [address], [place] tel:[phone] [facility] [address] left shoulder pain (chief complaint) Subacromial impingement, leftLeft shoulder pain, unspecified chronicityPain in left leg 4 Agustin Mchugh . [address], [place], [place], [address] , [place]. tel: [phone] Referring Provider: Jeison Coello, [address], [place], [address] . tel:[phone] Office/outpa tient visit,[facility], [facility], [address], [place], [place], [address], [place] tel:[phone] [facility] [address] left shoulder pain (chief complaint) Left shoulder pain, unspecified chronicitySubacr omial impingement, left Jan- 3 Agustin Mchugh . [address], [place], [place], [address] , [place]. tel: [phone] Referring Provider: Jeison Coello, [address], [place], [address] . tel:[phone] Office/outpa tient visit,[facility], [address], [place], [place], [address], [place] tel:[phone] [facility] [address] left shoulder pain (chief complaint) Left shoulder pain, unspecified chronicitySubacr omial impingement, left 3 Agustin Mchugh . [address], [place], [place], [address] , [place]. tel: [phone] Referring Provider: Jeison Colelo, [address], [place], [address] . tel:[phone] Office/outpa tient visit,[facility], [facility], [address], [place], [place], [address], [place] tel:[phone] left shoulder pain (chief complaint) Subacromial impingement, leftLeft shoulder pain, unspecified chronicity Fermin- 3 Agustin Mchugh . [address], [place], [place], [address] , [place]. tel:[phone] Referring Provider: Jeison Velez MD H, [address], [place], [address] . tel:[phone] Office/outpa tient visit,[facility], [address], [place], [place], [address], [place] tel:[phone] left shoulder pain (chief complaint) Subacromial impingement, left Aug- 3 Agustin Mchugh . [address], [place], [place], [address] , [place]. tel:[phone] Referring Provider: Jeison Velez MD H, [address], [place], [address] . tel:[phone] Office/outpa tient visit,[facility], [address], [place], [place], [address], [place] tel:[phone] [facility] [address] left shoulder pain (chief complaint) Left shoulder pain, unspecified chronicitySubacr omial impingement, left Jul- 3 Agustin Mchugh . [address], [place], [place], [address] , [place]. tel:[phone] Referring Provider: Jeison eVlez MD H, [address], [place], [address] . tel:[phone] [facility], [address], [place], [place], [address], [place] tel:[phone] [facility] 400 No Information Jul- 3 Agustin Mchugh . [address], [place], [place], [address] , [place]. tel:[phone] Referring Provider: Jeison Velez MD H, [address], [place], [address] . tel:[phone] Family History Family Member Type Diagnosis Age At Onset No Information Payers Payer name Insurance type Covered libertarian ID Authoriza tisam(s) [facility] W/C [id number] Social History Type Description Quantity Date Captured [...] as treatment options through the aid of road engineer. We have ordered physical therapy on multiple occasions. Physical therapy has been spotty at best. I am not sure if it is a communication problem with the patient or with her adjuster electrical contacts. We will go ahead and reorder the [...] exam f indings with the aid of road engineer as well as her nurse shoe caser. She appears to be improving but [...] but has not yet begun. She has road engineer here with her today and again I [...]
== END 2024-10-23 09:45 | disposition home or self-care (01) ==
LOC: HO.HWS 08:31
PROVIDERS: Visit Provider Obstetrics & Gynecology
DX: Z30.431 Encounter for routine checking of intrauterine contraceptive device (principal); N83.209 Unspecified ovarian cyst, unspecified side
CPT/HCPCS: 99213

== ENCOUNTER → 2024-10-23 08:31 | Outpatient (BNVA) | payer OTHER, SELFPAY | PROVIDERS: Visit Provider Obstetrics & Gynecology | DX: Z30.431 Encounter for routine checking of intrauterine contraceptive device (principal); N83.202 Unspecified ovarian cyst, left side | CPT/HCPCS: 99212 ==

== ENCOUNTER 2024-11-06 11:11 | Outpatient (REF) | payer OTHER, SELFPAY ==
--- OUTSIDE RECORDS SUMMARY | 2023-07-19 04:14 | XMS_ITS | Continuity of Care Document ---
Author Organization [facility] Address [address] [place] [address] Phone Care Team Providers Care Drawer In Jacquard Loom Name Role Phone Jeison Velez MD Unavailable [...] Diagnoses Date Provider Providers Copied on Encounter [facility], [address], [place], [place], [address], tel:[phone] [address] No Information 4 Agustin Mchugh . [address], [facility] 400, [place], [place], [address] , [place]. tel:[phone] Referring Provider: Jeison Velez MD H, [address], [place], [address] . tel:[phone] Office/outpa tient visit,est, mod [facility], [address], [place], [place], [address], [place] tel:[phone] [facility] 400 left shoulder pain (chief complaint) Subacromial impingement, leftLeft shoulder pain, unspecified chronicityPain in left leg 4 Agustin Mchugh . [address], [place], [place], [address] , [place]. tel: [phone] Referring Provider: Jeison Coello, [address], [place], [address] . tel:[phone] [facility], [address], [place], [place], [address], [place] tel:[phone] [facility] 400 left shoulder pain (chief complaint) Left shoulder pain, unspecified chronicitySubacr omial impingement, left Jan- 3 Agustin Mchugh . [address], [place], [place], [address] , [place]. tel: [phone] Referring Provider: Jeison Coello, [address], [place], [address] . tel:[phone] Office/outpa tient visit,[facility], [address], [place], [place], [address], [place] tel:[phone] [facility] 400 left shoulder pain (chief complaint) Left shoulder pain, unspecified chronicitySubacr omial impingement, left 3 Agustin Mchugh . [address], [place], [place], [address] , [place]. tel: [phone] Referring Provider: Jeison Coello, [address], [place], [address] . tel:[phone] [facility], [facility], [address], [place], [place], [address], [place] tel:[phone] left shoulder pain (chief complaint) Subacromial impingement, leftLeft shoulder pain, unspecified chronicity Fermin- 3 Agustin Mchugh . [address], [place], [place], [address] , [place]. tel:[phone] Referring Provider: Jeison Velez MD H, [address], [place], [address] . tel:[phone] Office/outpa tient visit,[facility], [address], [place], [place], [address], [place] tel:[phone] left shoulder pain (chief complaint) Subacromial impingement, left Aug- 3 Agustin Mchugh . [address], [place], [place], [address] , [place]. tel:[phone] Referring Provider: Jeison Velez MD H, [address], [place], [address] . tel:[phone] Office/outpa tient visit,[facility], [address], [place], [place], [address], [place] tel:[phone] [facility] [address] left shoulder pain (chief complaint) Left shoulder pain, unspecified chronicitySubacr omial impingement, left Jul- 3 Agustin Mchugh . [address], [place], [place], [address] , [place]. tel:[phone] Referring Provider: Jeison Velez MD H, [address], [place], [address] . tel:[phone] [facility], [address], [place], [place], [address], [place] tel:[phone] [facility] 400 No Information Jul- 3 Agustin Mhcugh . [address], [place], [place], [address] , [place]. tel:[phone] Referring Provider: Jeison Velez MD H, [address], [place], [address] . tel:[phone] Family History Family Member Type Diagnosis Age At Onset No Information Payers Payer name Insurance type Covered green party ID Authoriza tisam(s) [facility] W/C [id number] Social History Type Description Quantity Date Captured [...] as treatment options through the aid of farm facility manager. We have ordered physical therapy on multiple occasions. Physical therapy has been spotty at best. I am not sure if it is a communication problem with the patient or with her freight adjuster. We will go ahead and reorder [...] exam f indings with the aid of farm facility manager as well as her nurse case worker. She appears to be improving but still [...] but has not yet begun. She has farm facility manager here with her today and again I [...]
--- NOTE | ~2024-11-06 | MR_ITS ---
EXAMINATION: MR BRAIN WITHOUT AND WITH CONTRAST CLINICAL INFORMATION: Syncope. Collapsed. COMPARISON: Correlated to CT dated September 25, 2024 TECHNIQUE: Multiplanar, multisequence MRI of the brain was obtained before and after the intravenous administration of 8.5 mL gadolinium based (Gadavist) without reported immediate complications.. FINDINGS: No restricted diffusion. No abnormal enhancement within the intra-axial or the extra-axial compartment of the cranium. No acute intracranial hemorrhage, mass effect, midline shift, hydrocephalus or herniation. Watson-white matter differentiation is normal. Sellar/suprasellar region demonstrated no signal abnormality or masses. Craniocervical junction demonstrates normal position of the cerebellar tonsils. Nonspecific, punctate deep point matter hyperintense T2 FLAIR signal foci in centrum semiovale, frontal poles. Flow-void signal within the main cerebral vessels is normal.. MR/MR head/brain wo/w con IMPRESSION: No acute brain abnormality. No abnormal enhancement. Nonspecific, white matter T2 FLAIR signal. This could be seen patients with migraines. Electronically signed by: Claus Ramírez MD 11/06/2024 12:55 PM EDT
== END 2024-11-06 11:12 | disposition home or self-care (01) ==
LOC: HO.MRI 11:11
PROVIDERS: Visit Provider Nurse Practitioner Family
DX: G43.009 Migraine without aura, not intractable, without status migrainosus (principal); R55 Syncope and collapse
CPT/HCPCS: 70553; A9585

== ENCOUNTER → 2024-11-06 11:34 | Outpatient (BNV) | payer OTHER, SELFPAY | PROVIDERS: Visit Provider Radiology Diagnostic Radiology | DX: R55 Syncope and collapse (principal) | CPT/HCPCS: 70553 ==

== ENCOUNTER 2024-11-30 07:31 | Outpatient (AMB) | payer OTHER, SELFPAY ==
--- OUTSIDE RECORDS SUMMARY | 2023-07-19 04:14 | XMS_ITS | Continuity of Care Document ---
Author Organization [facility] Address [address] [place] [address] Phone Care Team Providers Care Inspector Advanced Composite Name Role Phone Jeison Velez MD Unavailable Unavailable Allergies, Adverse Reactions, Alerts Substance Reaction Status Criticality No Known Allergies Active No Inform ation Procedures Procedure Date Office/outpatient visit,est, mod 2023 Office/outpatient visit,est, mod 2022 Office/outpatient visit,est, mod 2022 Office/outpatient visit,est, mod 2022 Office/outpatient visit,est, mod 2022 X-ray Exam Of Shoulder 2+ Views - Comple te X-ray exam of neck spine, 2-3 views Depomedrol 40mg Drain/inject major joint or bursa Office/outpatient visit,new, mod 2022 Advance Directives Directive Yes / No Effective Date File Name No Information Encounters Encounter Description Practice Location Reason(s) For Visit Diagnoses Date Provider Providers Copied on Encounter [facility], [address], [place], [place], [id number], tel:[phone] [address] No Information 4 Agustin Mchugh . [address], [facility] [address], [place], [place], [address] , [place]. tel:[phone] Referring Provider: Jeison Velez MD H, [address], [place], [address] . tel:[phone] Office/outpa tient visit,est, mod [facility], [address], [place], [place], [address], [place] tel:[phone] [facility] 400 left shoulder pain (chief complaint) Subacromial impingement, leftLeft shoulder pain, unspecified chronicityPain in left leg 4 Agustin Mchugh . [address], [place], [place], [address] , [place]. tel: [phone] Referring Provider: Jeison Coello, [address], [place], [address] . tel:[phone] Office/outpa tient visit,[facility], [facility], [address], [place], [place], [address], [place] tel:[phone] [facility] 400 left shoulder pain (chief complaint) Left shoulder pain, unspecified chronicitySubacr omial impingement, left Jan- 3 Agustin Mchugh . [address], [place], [place], [address] , [place]. tel: [phone] Referring Provider: Jeison Coello, [address], [place], [address] . tel:[phone] Office/outpa tient visit,[facility], [address], [place], [place], [address], [place] tel:[phone] [facility] 400 left shoulder pain (chief complaint) Left shoulder pain, unspecified chronicitySubacr omial impingement, left 3 Agustin Mchugh . [address], [place], [place], [address] , [place]. tel: [phone] Referring Provider: Jeison Coello, [address], [place], [address] . tel:[phone] Office/outpa tient visit,[facility], [facility], [address], [place], [place], [address], [place] tel:[phone] left shoulder pain (chief complaint) Subacromial impingement, leftLeft shoulder pain, unspecified chronicity Fermin- 3 Agustin Mchugh . [address], [place], [place], [address] , [place]. tel:[phone] Referring Provider: Jeison Velez MD H, [address], [place], [address] . tel:[phone] Office/outpa tient visit,[facility], [address], [place], [place], [address], [place] tel:[phone] left shoulder pain (chief complaint) Subacromial impingement, left Aug- 3 Agustin Mchugh . [address], [place], [place], [address] , [place]. tel:[phone] Referring Provider: Jeison Velez MD H, [address], [place], [address] . tel:[phone] Office/outpa tient visit,[facility], [address], [place], [place], [address], [place] tel:[phone] [facility] [address] left shoulder pain (chief complaint) Left shoulder pain, unspecified chronicitySubacr omial impingement, left Jul- 3 Agustin Mchugh . [address], [place], [place], [address] , [place]. tel:[phone] Referring Provider: Jeison Velez MD H, [address], [place], [address] . tel:[phone] [facility], [address], [place], [place], [address], [place] tel:[phone] [facility] 400 No Information Jul- 3 Agustin Mchugh . [address], [place], [place], [address] , [place]. tel:[phone] Referring Provider: Jeison Velez MD H, [address], [place], [address] . tel:[phone] Family History Family Member Type Diagnosis Age At Onset No Information Payers Payer name Insurance type Covered republican ID Authoriza tisam(s) [facility] W/C [id number] Social History Type Description Quantity Date Captured Comments Alcohol Use Details Unknown Caffeine Use Details Unknown Tobacco Use Status No Information Smoking Status No Information Sex Female Chief Complaint And Reason For Visit No Information Reason For Referral Reason For Referral No Information Plan Of Treatment Date Type Action Status Referral Ordered: X-ray Exam Of Shoulder 2+ Views - Complete LT ordered Referral Ordered: X-ray exam of neck spine, 2-3 views ordered Referral Ordered: X-ray exam of neck spine, 2-3 views spine, cervical ordered History Of Present Illness Encounter Date Complaint History Of Prese nt Illness left shoulder pain Romi walsh is a 37 year old female. She presents with pain on the left side. She indicates the injury occurred at work. She is on Worker's Comp. The accident occurred on 03/28/2022. The symptoms occur constantly with intermittent worsening. Currently the patient states that the symptoms are moderate. The pain is described as aching. The symptoms occur with activity. The patient is experiencing pain in the following location: anterior shoulder on the left side. She rates her worst pain as 7/10. She rates her current pain as 5/10. The symptoms are aggravated by daily activities. Romi states that the symptoms are relieved by rest, exercise and NSAIDS cream. left shoulder pain Ms Meeks is a 37 year old female who complains of left shoulder pain. Patient presents today for a follow up of her left shoulder pain. She reports the topical solution given at last visit has helped. She has not had any PT as yet. She presents with pain on the left side. She states that the symptoms have been acute traumatic and began on 03/28/2022. She indicates the injury occurred at work. She is on Worker's Comp. The symptoms occur intermittently. Currently the patient states that the symptoms are moderate-severe. The pain is described as aching and sharp. The symptoms occur with activity. The patient is experiencing pain in the following location: entire shoulder on the right side. She rates her worst pain as 8/10. She rates her current pain as 3/10. The symptoms are aggravated by daily activities, lifting, lifting away from the body, moving the arm suddenly, reaching overhead and sleeping on the affected side. Romi states that the symptoms are relieved by rest. In addition to left shoulder pain the patient is also experiencing joint tenderness. left shoulder pain Romi walsh is a 37 year old female. Patient presents today for a follow up of her left shoulder pain. She reports no improvement since last visit. She has stopped going to PT but tries to exercise at home. She states that while going to PT she did have improvement She presents with pain on the left side. She states that the symptoms have been acute traumatic and began on 04/06/2022. She indicates the injury occurred at work. She is on Worker's Comp. The symptoms occur intermittently. The problem is unchanged. Currently the patient states that the symptoms are mild-moderate. The pain is described as aching and throbbing. The symptoms occur intermittently. The patient is experiencing pain in the following location: entire shoulder on the left side. She rates her worst pain as 4/10. She rates her current pain as 4/10. The symptoms are aggravated by no specific activity. Romi states that the symptoms are relieved by no specific activity. In addition to left shoulder pain the patient is also experiencing decreased mobility and nocturnal awakening. left shoulder pain Romi walsh is a 37 year old female. Patient is presenting for a follow up of left shoulder pain. She reports that her pain is consistently at a 3/10 with an increase upon lifting things. She presents with pain on the left side. She states that the symptoms have been chronic traumatic. She indicates the injury occurred at work. She is on Worker's Comp. The accident occurred on 04/06/2022. The symptoms occur constantly with intermittent worsening. Currently the patient states that the symptoms are mild-moderate. The pain is described as aching. The symptoms occur with activity. She rates her worst pain as 8/10. She rates her current pain as 3/10. The symptoms are aggravated by lifting. Romi states that the symptoms are relieved by rest. left shoulder pain Romi walsh is a 37 year old female. Patient received a cortisone injection and PT on 08/02/22 for Subacromial impingement, left and reports minimal improvement. She states that the symptoms have been acute traumatic and began on 04/07/2022. She indicates the injury occurred at work. She is on Worker's Comp. She reports she had side effects from the injection. He menstrual did not come. She presents with pain on the left side. She states that the symptoms have been acute traumatic and began on 04/07/2022. She indicates the injury occurred at work. She is on Worker's Comp. The symptoms occur intermittently. Currently the patient states that the symptoms are moderate-severe. The pain is described as aching. She rates her worst pain as 5/10. She rates her current pain as 0/10. The symptoms are aggravated by lifting and daily activities. Romi states that the symptoms are relieved by rest. In addition to left shoulder pain the patient is also experiencing joint tenderness. left shoulder pain Romi walsh is a 37 year old female. Patient presents today with left shoulder pain that started 3after a fall at work. She presents with pain on the left side. She states that the symptoms have been acute traumatic and began on 04/07/2022. She indicates the injury occurred at work. She is on Worker's Comp. Romi states that the symptoms began as the result of a fall injury. The symptoms occur intermittently. Currently the patient states that the symptoms are severe. The pain is described as shooting and aching. The symptoms occur intermittently. The patient is experiencing pain in the following location: entire shoulder on the left side. She rates her worst pain as 10/10. She rates her current pain as 7/10. The pain radiates from the shoulder on the left side then to the to foot on the left side. The symptoms are aggravated by no specific activity. Romi states that the symptoms are relieved by no specific activity. In addition to left shoulder pain the patient is also experiencing joint tenderness. Functional Status Date Functional Assessmen t No Information Instructions Date Instruction Additional Infor lida Discussed exam marques cortez. Continues to complain of left shoulder pain. Functionally she has excellent range of motion and strength. She is better than she was originally. She does complain of daily pain. She has not had any physical therapy. We discussed her treatment options. We will go ahead and reorder physical therapy and I will see her back in 8 weeks Related to Subacromial impingement, left Discussed imaging an d exam findings. Continues complain of left shoulder pain. Objectively her range of motion is better today than it was last time. We discussed her pathology as well as treatment options through the aid of automation controls specialist. We have ordered physical therapy on multiple occasions. Physical therapy has been spotty at best. I am not sure if it is a communication problem with the patient or with her machine adjuster helper. We will go ahead and reorder the physical therapy and I will see her back in 4 weeks. We will also go ahead and reorder the topical lidocaine patches and cream Related to Subacromial impingement, left Discussed imaging an d exam findings. Overall she is doing better. She did go several weeks without having physical therapy. She was doing better with physical therapy but has regressed. We discussed her treatment options. I would like to go ahead and restart the physical therapy to work on her left shoulder. Continue light duty work restrictions on the left upper extremity. She has been having some improvement with the LidoPro patches and cream so we went ahead and renew those.. I will see her back in 4 weeks Related to Subacromial impingement, left Discussed her exam f indings with the aid of automation controls specialist as well as her nurse complex case manager. She appears to be improving but still has pain and dysfunction. She has pain with overhead lifting with abduction and forward flexion. Her range of motion is decent. We discussed her treatment options and she has made progress with physical therapy, but is not yet near where she wants to be. We will continue with physical therapy and if progress stalls or regresses, will need to consider surgery. Continue with light duty level work. We will give her prescription for Mobic as well as topical lidocaine patches and cream Related to Subacromial impingement, left Santhosh exam plan as we ll as previous MRI. Patient with left subacromial impingement partial-thickness tearing of left rotator cuff. She was given injection at the last visit. We ordered physical therapy but has not yet begun. She has automation controls specialist here with her today and again I explained the importance of physical therapy as relates to her recovery and improvement. We will go ahead and reorder the physical therapy.She also complains of side effects from the injection including tiredness and missed period. I explained to her that I would not expect that is a side effect from a corticosteroid injection that she should investigate other causes.Continue with same work restrictions, follow-up in 4 weeks. Related to Subacromial impingement, left We discussed imaging and exam findings. She complaint left shoulder pain. Pain originally again after an injury at her place of work back in March. She fell out of the truck and landed on her left side. She has some leg pain at that time which is since resolved. Her primary complaint is left shoulder pain and dysfunction. She has limited active range of motion and pain with passive range of motion. Strength is pain limited. She has an outside MRI but no report available. MRI shows tendinopathy of the supraspinatus without full-thickness tearing. We discussed her treatment options. She was given an injection into the left subacromial space. She tolerated this well. I would like to get her set up with formal physical therapy. Limited use left upper extremity, follow-up in 4 weeks. Related to Subacromial impingement, left Assessments Type Assessment Date No Information Patient Care Teams Name Effective Dates (start - stop) Status Members No Information
[2024-11-30 07:33] VITALS: BP 124/84; PULSE 73; O2SAT 100; BMI 28.0
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
== END 2024-11-30 08:17 | disposition home or self-care (01) ==
LOC: HO.HSMS 07:32
PROVIDERS: Visit Provider Nurse Practitioner Family
DX: R55 Syncope and collapse (principal); F41.9 Anxiety disorder, unspecified; G43.009 Migraine without aura, not intractable, without status migrainosus; R06.83 Snoring; G47.9 Sleep disorder, unspecified
CPT/HCPCS: 99214

== ENCOUNTER 2024-11-30 07:31 | Outpatient (REF) | payer OTHER, SELFPAY | END 2024-11-30 07:32 | disposition home or self-care (01) | LOC: HO.HKASLDS 07:31 | PROVIDERS: Visit Provider Nurse Practitioner Family | DX: R55 Syncope and collapse (principal); R94.31 Abnormal electrocardiogram [ECG] [EKG]; F41.9 Anxiety disorder, unspecified; G43.009 Migraine without aura, not intractable, without status migrainosus; R06.83 Snoring; G47.9 Sleep disorder, unspecified; Z79.899 Other long term (current) drug therapy | CPT/HCPCS: 36415; 84443; 99212 ==

== ENCOUNTER → 2024-12-04 11:38 | Outpatient (BNV) | payer OTHER, SELFPAY | DX: R07.9 Chest pain, unspecified (principal) | CPT/HCPCS: 78452; 93016; 93018 ==

== ENCOUNTER → 2024-12-04 11:39 | Outpatient (REF) | payer OTHER, SELFPAY ==
--- OUTSIDE RECORDS SUMMARY | 2023-07-19 04:14 | XMS_ITS | Continuity of Care Document ---
Author Organization [facility] Address [address] [place] [address] Phone Care Team Providers Care Deck Specialist Name Role Phone Jeison Velez MD Unavailable [...] Diagnoses Date Provider Providers Copied on Encounter [facility], [address], [place], [place], [address], tel:[phone] [address] No Information 4 Agustin Mchugh . [address], [facility] [address], [place], [place], [address] , [place]. tel:[phone] Referring Provider: Jeison Velez MD H, [address], [place], [address] . tel:[phone] Office/outpa tient visit,est, mod [facility], [address], [place], [place], [address], [place] tel:[phone] [facility] 400 left shoulder pain (chief complaint) Subacromial impingement, leftLeft shoulder pain, unspecified chronicityPain in left leg 4 Agustin Mchugh . [address], [place], [place], [address] , [place]. tel: [phone] Referring Provider: Jeison Coello, [address], [place], [address] . tel:[phone] [facility], [address], [place], [place], [address], [place] tel:[phone] [facility] 400 left shoulder pain (chief complaint) Left shoulder pain, unspecified chronicitySubacr omial impingement, left Jan- 3 Agustin Mchugh . [address], [place], [place], [address] , [place]. tel: [phone] Referring Provider: Jeison Coello, [address], [place], [address] . tel:[phone] Office/outpa tient visit,[facility], [address], [place], [place], [address], [place] tel:[phone] [facility] 400 left shoulder pain (chief complaint) Left shoulder pain, unspecified chronicitySubacr omial impingement, left 3 Agustin Mchugh . [address], [place], [place], [address] , [place]. tel: [phone] Referring Provider: Jeison Coello, [address], [place], [address] . tel:[phone] [facility], [facility], [address], [place], [place], [address], [place] tel:[phone] left shoulder pain (chief complaint) Subacromial impingement, leftLeft shoulder pain, unspecified chronicity Fermin- 3 Agustin Mchugh . [address], [place], [place], [address] , [place]. tel:[phone] Referring Provider: Jeison Velez MD H, [address], [place], [address] . tel:[phone] Office/outpa tient visit,[facility], [address], [place], [place], [address], [place] tel:[phone] left shoulder pain (chief complaint) Subacromial impingement, left Aug- 3 Agustin Mchugh . [address], [place], [place], [address] , [place]. tel:[phone] Referring Provider: Jeison Velez MD H, [address], [place], [address] . tel:[phone] Office/outpa tient visit,[facility], [address], [place], [place], [address], [place] tel:[phone] [facility] - [address] left shoulder pain (chief complaint) Left shoulder pain, unspecified chronicitySubacr omial impingement, left Jul- 3 Agustin Mchugh . [address], [place], [place], [address] , [place]. tel:[phone] Referring Provider: Jeison Velez MD H, [address], [place], [address] . tel:[phone] [facility], [address], [place], [place], [address], [place] tel:[phone] [facility] 400 No Information Jul- 3 Agustin Mchugh . [address], [place], [place], [address] , [place]. tel:[phone] Referring Provider: Jeison Velez MD H, [address], [place], [address] . tel:[phone] Family History Family Member Type Diagnosis Age At Onset No Information Payers Payer name Insurance type Covered constitution party ID Authoriza tisam(s) [facility] W/C [id number] Social History Type Description Quantity Date Captured [...] as treatment options through the aid of reinforced concrete inspector. We have ordered physical therapy on multiple occasions. Physical therapy has been spotty at best. I am not sure if it is a communication problem with the patient or with her insurance loss adjuster. We will go ahead and reorder [...] exam f indings with the aid of reinforced concrete inspector as well as her nurse case packer and sealer. She appears to be improving but still [...] but has not yet begun. She has reinforced concrete inspector here with her today and again I [...]
--- NOTE | ~2024-12-04 | NM_ITS ---
EXERCISE MYOCARDIAL PERFUSION STUDY INDICATION: Chest pain to evaluate for myocardial ischemia TECHNIQUE: The patient was brought in for an exercise perfusion study on 12/04/2024. Patient performed exercise as per Carlito protocol and was injected 30 mCi of sestamibi once target heart rate was achieved. Images were obtained using the SPECT gamma camera interlaced with the gating device. Images were obtained in supine position. Resting perfusion study was performed on 12/07/2024. Patient was administered 30 mCi of sestamibi intravenously at rest. Images were then obtained in supine position. Images obtained without without CT attenuation. Total DLP 130 mGy-cm. Images were processed with the software and compared side to side in short axis, horizontal long axis and vertical long axis views. FINDINGS: Raw images were reviewed The stress perfusion study showed nonattenuated images show normal uptake of radiotracer in all segments of the LV myocardium. Attenuated corrected images show some thinning of the apex and distal septum of the LV myocardium.. The gated study shows normal LV systolic function with calculated LVEF of 58%. LV cavity is normal in size. The gated study shows normal systolic wall thickening and contraction of segments. Resting study shows significant subdiaphragmatic uptake interfering with myocardial uptake making it difficult to interpret. Nonattenuated images show mildly reduced uptake in the distal anterior apical as well as moderately reduced uptake and inferoapical and basal lateral wall of the LV myocardium.. Gating at rest reveals normal systolic wall motion with ejection fraction at greater than 55%. The findings are consistent with normal myocardial perfusion. NM/NM cardiolite stress test IMPRESSION: 1. Myocardial perfusion imaging study shows normal myocardial perfusion. 2. Gated LVEF is 58%. 3. Transient ischemic dilatation not present. EKG revealed negative for ischemia. Electronically signed by: Archie Lopez MD 12/09/2024 11:53 AM EDT
--- NOTE | 2024-12-04 11:38 | CA_ITS ---
Acquisition Time: 2024-12-04 11:01:55 Total Exercise Time: 00:07:23 Test Indications: Medications: Protocol: RK Max HR: 171 BPM 93% of Pred: 183 BPM Max BP: 158/88 mmHG Max Work Load: 9.1 METS Exercise stress test with exercise 7 mins 23 secs of Rk Protocol, achieving 92% MPHR, with left shoulder pain where she had previous injury, no chest pain, without any arrythmias, with normotensive repsonse to exercise. Without any EKG changes meeting criteria for ischemia. In recovery, pt continued to feel well. Nuclear images pending. Test reviewed with Dr. Lopez. Referred By: Khanh Broussard Electronically Signed By: Khanh Broussard
== END ==
LOC: HO.CARD 11:39
DX: R07.9 Chest pain, unspecified (principal)
CPT/HCPCS: 78452; 93017; A9500

== ENCOUNTER 2024-12-27 09:14 | Outpatient (REF) | payer OTHER, SELFPAY ==
--- NOTE | 2024-12-27 09:17 | EEG_ITS ---
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 Patient is awake and sleep during the tracing. Background EEG rhythm during wakefulness is low amplitude fast with occasional asymmetric left frontal theta range slowing with no definite sharp waves or spikes. Patient transitioned into stage N1 to N2 sleep with no significant abnormality. Photic stimulation does not produce any significant driving. Hyperventilation is unremarkable. Cardiac lead does not reveal any significant abnormality. Impression: Mildly abnormal EEG revealing periods of left frontal asymmetric slowing. For possibility of seizure disorder, further EEG monitoring with ambulatory EEG is recommended. MTDD
== END 2024-12-27 09:15 | disposition home or self-care (01) ==
LOC: HO.NEURO 09:14
PROVIDERS: Visit Provider Nurse Practitioner Family
DX: R55 Syncope and collapse (principal); F41.9 Anxiety disorder, unspecified; G43.009 Migraine without aura, not intractable, without status migrainosus; R94.01 Abnormal electroencephalogram [EEG]
CPT/HCPCS: 95816

== ENCOUNTER → 2024-12-27 09:17 | Outpatient (BNV) | payer OTHER, SELFPAY | PROVIDERS: Visit Provider Psychiatry & Neurology Neurology | DX: R55 Syncope and collapse (principal); G43.909 Migraine, unspecified, not intractable, without status migrainosus; R94.01 Abnormal electroencephalogram [EEG] | CPT/HCPCS: 95816 ==

== ENCOUNTER 2025-01-05 10:43 | Inpatient (IN) | payer OTHER, SELFPAY ==
--- OUTSIDE RECORDS SUMMARY | 2023-07-19 04:14 | XMS_ITS | Continuity of Care Document ---
Author Organization [facility] Address [address] [place] [address] Phone Care Team Providers Care Assistant Professor Of Drama Name Role Phone Jeison Velez MD Unavailable [...] Diagnoses Date Provider Providers Copied on Encounter [facility], [address], [place], [place], [address], tel:[phone] [address] No Information 4 Agustin Mchugh . [address], [facility] [address], [place], [place], [address] , [place]. tel:[phone] Referring Provider: Jeison Velez MD H, [address], [place], [address] . tel:[phone] Office/outpa tient visit,est, mod [facility], [address], [place], [place], [address], [place] tel:[phone] [facility] 400 left shoulder pain (chief complaint) Subacromial impingement, leftLeft shoulder pain, unspecified chronicityPain in left leg 4 Agustin Mchugh . [address], [place], [place], [address] , [place]. tel: [phone] Referring Provider: Jeison Coello, [address], [place], [address] . tel:[phone] Office/outpa tient visit,[facility], [facility], [address], [place], [place], [address], [place] tel:[phone] [facility] 400 left shoulder pain (chief complaint) Left shoulder pain, unspecified chronicitySubacr omial impingement, left Jan- 3 Agustin Mchugh . [address], [place], [place], [address] , [place]. tel: [phone] Referring Provider: Jeison Coello, [address], [place], [address] . tel:[phone] Office/outpa tient visit,[facility], [address], [place], [place], [address], [place] tel:[phone] [facility] 400 left shoulder pain (chief complaint) Left shoulder pain, unspecified chronicitySubacr omial impingement, left 3 Agustin Mchugh . [address], [address], [place], [place], [address] , [place]. tel: [phone] Referring Provider: Jeison Coello, [address], [place], [address] . tel:[phone] Office/outpa tient visit,[facility], [facility], [address], [place], [place], [address], [place] tel:[phone] left shoulder pain (chief complaint) Subacromial impingement, leftLeft shoulder pain, unspecified chronicity Fermin- 3 Agustin Mchugh . [address], [place], [place], [address] , [place]. tel:[phone] Referring Provider: Jeison Velez MD H, [address], [place], [address] . tel:[phone] Office/outpa tient visit,[facility], [address], [place], [place], [address], [place] tel:[phone] left shoulder pain (chief complaint) Subacromial impingement, left Aug- 3 Agustin Mchugh . [address], [place], [place], [address] , [place]. tel:[phone] Referring Provider: Jeison Velez MD H, [address], [place], [address] . tel:[phone] Office/outpa tient visit,[facility], [address], [place], [place], [address], [place] tel:[phone] [facility] [address] left shoulder pain (chief complaint) Left shoulder pain, unspecified chronicitySubacr omial impingement, left Jul- 3 Agustin Mchugh . [address], [place], [place], [address] , [place]. tel:[phone] Referring Provider: Jeison Velez MD H, [address], [place], [address] . tel:[phone] [facility], [address], [place], [place], [address], [place] tel:[phone] [facility] 400 No Information Jul- 3 Agustin Mchugh . [address], [place], [place], [address] , [place]. tel:[phone] Referring Provider: Jeison Velez MD H, [address], [place], [address] . tel:[phone] Family History Family Member Type Diagnosis Age At Onset No Information Payers Payer name Insurance type Covered libertarian ID Authoriza tisam(s) PENDING SALE TO [facility] W/C [id number] Social History Type Description Quantity Date Captured [...] as treatment options through the aid of supervisor record press. We have ordered physical therapy on multiple occasions. Physical therapy has been spotty at best. I am not sure if it is a communication problem with the patient or with her swaging machine adjuster. We will go ahead and reorder the [...] exam f indings with the aid of supervisor record press as well as her nurse case filler. She appears to be improving but still [...] but has not yet begun. She has supervisor record press here with her today and again I [...]
--- NOTE | ~2025-01-05 | CT_ITS ---
CLINICAL HISTORY: Headache and seizure CT head without contrast Comparison: None provided Findings: No intra-axial mass, midline shift, hydrocephalus, or acute hemorrhage. No significant atrophy-like change or white matter disease. There is no sinus or mastoid fluid. The orbits are within normal limits. No skull fracture. IMPRESSION: 1. No acute intracranial findings. This document has been electronically signed by: Daniel Reza MD on 01/05/2025 13:01:01
--- NOTE | ~2025-01-05 | CT_ITS ---
CLINICAL HISTORY: Seizure CT cervical spine without contrast Comparison: None provided Findings: Normal vertebral body alignment. Multilevel disc space narrowing and endplate osteophyte formation, as well as facet hypertrophy. No acute fractures or dislocations. No acute findings on limited view of the intracranial contents. No cervical fluid collections or masses. Lung apices are clear. IMPRESSION: No acute findings. This document has been electronically signed by: Daniel Reza MD on 01/05/2025 12:58:39
[2025-01-05 10:57] VITALS: BP 129/70; BP 129/88; PULSE 90; PULSE 98; RESP 17; TEMP 36.8; O2SAT 97; O2SAT 98; BMI 26.7
[2025-01-05 11:13] VITALS: BP 129/88; PULSE 90; RESP 17; TEMP 36.8; O2SAT 97
--- NOTE | 2025-01-05 11:16 | PC.NURSE ---
PAtient presents to ED c/o possible seizure activity Patient speak Central African creole marketing account manager services used. reports patient having two seizures last night and once this AM. reports patient noted to be on floor after possible seizure. EMS reported patient to be incontinent Patient denies pain at this time. VSS Provider in with patient at this time. Blood collected/sent PAtient awaiting CT scans
[2025-01-05 11:21] LABS: MANUAL DIFF FLAG NO
[2025-01-05 11:22] LABS: Hematocrit 42.1 % (37.0-47.0); Hemoglobin 13.9 g/dl (12.0-16.0); Imm Gran Abs Auto 0.02 X10*3/uL (0.00-0.03); Imm Gran Pct Auto 0.3 % (0.0-0.4); Lymphocytes Absolute Auto 1.8 X10*3/uL (1.2-4.9); Mean Corpuscular HGB Conc 33.0 g/dl (31.0-35.0); Mean Corpuscular Hemoglobin 26.5 pg (27.0-33.0); Mean Corpuscular Volume 80.3 fL (80.0-98.0); NRBC Abs Auto 0.000 X10*3/uL (0.0-0.012); NRBC Pct Auto 0.0 /100WBC (0.0-0.2); Platelet Count 254 X10*3/uL (160-400); Red Blood Count 5.24 X10*6/uL (4.20-5.50); White Blood Count 7.4 X10*3/uL (4.8-10.8)
--- NOTE | 2025-01-05 11:23 | ED_ITS ---
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 Vasquez HPI Narrative: 39-year-old female only speaks Creole presented with via EMS after witnessed having 3 seizure 2 last night and in the morning H seizure followed by period of confusion and being unconscious, patient describes the episode as a tonic-clonic seizure the patient knows consciousness for about 10-15 minutes then come back to her normal baseline after 30 minutes this happened total of 3 times since yesterday, 1st episode was yesterday and patient was found on floor by her . Patient now is semi conscious able to provide some history reporting that she has not gotten her menstruation period for the past 5-6 months, patient confirmed no history of seizure, not taking antiseizure medication. Complaining of headache. No fever, no chills, no CP, no SOB, no abdominal pain, no nausea, no vomiting. Related Data Home Medications ?Medication ?Instructions ?Recorded ?Confirmed vitamins no.167-folic tab PO 07/24/24 5 acid 400 mcg-dha 25 mg chewable tablet (One-A-Day ) levonorgestrel (Mirena) intrauterine 10/23/24 Previous Rx's ?Medication ?Instructions ?Recorded hydrocortisone 2.5 % topical cream 1 appl topical BID 7 days #28 grams 11/30/24 magnesium oxide 400 mg (241.3 mg 400 mg PO BEDTIME 90 days #90 tabs 11/30/24 magnesium) tablet naproxen 500 mg tablet 500 mg PO Q12H PRN Headache or 11/30/24 migraine 30 days #90 tabs riboflavin (vitamin B2) 400 mg 400 mg PO DAILY 90 days #90 tabs 11/30/24 tablet topiramate 25 mg tablet 25 mg PO BID 30 days #60 tab s 11/30/24 Allergies Allergy/AdvReac Type Severity Reaction Status Date / Time No Known Allergies Allergy Verified 01/05/25 10:59 Review of Systems 2 Review of Systems: All other systems are reviewed and are negative Constitutional: Reports as per HPI and Reports no additional constitutional complaints Eyes: Reports as per HPI and Reports no additional eye complaints Reports system reviewed and no additional complaints, except as documented Cardiovascular: Reports as per HPI and Reports no additional cardiovascular complaints Respiratory: Reports as per HPI and Reports no additional respiratory complaints Gastrointestinal: Reports as per HPI and Reports no additional gastrointestinal complaints Genitourinary: Reports no additional female genitourinary complaints Musculoskeletal: Reports no additional musculoskeletal complaints Skin/Breast: Reports system reviewed and no additional complaints, except as docu Psychiatric: Reports no additional psychiatric complaints Endocrine: Reports no additional endocrine complaints Hematologic/Lymphatic: Reports no additional hematologic/lymphatic complaints Allergic/Immunologic: Reports no additional allergic/immunologic complaints Reports system reviewed and no additional complaints, except as documented and Reports Abnormal speech present PMFSH Past Medical History Surgical History Hx of section Hx of tubal ligation Family History Family History Father No problems noted. Mother No problems noted. Social History Social History Household Members: Spouse and Children Housing Other:: snf Unable to assess alcohol history related to: Unable to respond Alcohol intake: never Patient Tobacco Use Status: Never used Tobacco Use of substances other than those prescribed or required for medical reasons: Unable to respond Advance Directives: No Advance Directives Information Provided: No Do you have a plan to hurt others: No Plan Patient : No Current occupational status: unemployed Sexual orientation: Straight/Heterosexual Gender identity: Female Physical Exam 2 Vital Signs: Vital Signs: Last Vital Signs Temp 98.3 F 01/05/25 13:23 Pulse 77 01/05/25 13:23 Resp 14 01/05/25 13:23 BP 117/69 01/05/25 13:23 Pulse Ox 98 01/05/25 13:23 O2 Del Method Room Air 01/05/25 13:23 BMI result Body Mass Index 26.7 Vital signs have been reviewed and appear to be correct. Blood pressure elevated. Heart rate normal. Respiratory rate normal. Temperature normal. Oxygen saturation normal. Appearance: Alert. Lethargic but easily arousable, No acute distress. Head: Normal external exam. Normocephalic. Atraumatic. No Beckham signs noted. No raccoon eyes noted Eyes: PERRLA. EOMI. Conjunctiva and sclera normal. Eyelids normal. ENT: TM's Normal. Pharynx normal. Uvula midline. Moist mucous membranes. No trismus noted. No drooling noted. No muffled voice noted. Neck: Normal inspection. Neck supple. FROM. No adenopathy. Thyroid Normal. No meningeal signs. No neck mass noted. CVS: Normal heart rate and rhythm. Heart sound normal. No murmurs noted. Pulses normal throughout. Respiratory: No respiratory distress. Painless inspiration. Breath sounds normal. No wheezes/rales/rhonchi noted. Chest nontender. No accessory muscle usage noted or decreased air movement noted. Abdomen: Soft and nontender. Bowel sounds normal in all 4 quadrants. No distention noted. No organomegaly noted. No visible injury noted. Back: No CVA tenderness. Full range of motion noted. Skin: Skin warm and dry. Normal skin color. Normal skin turgor. No rashes/lesions/lacerations noted. Extremities: No lower extremity edema. Extremities exhibit normal range of motion. Extremities nontender. Neuro: Mental status: Normal attention, orientation, memory, and affect. Cranial nerves: Pupils are equal, round and reactive to light, EOMI, visual carvajal are fall, face is symmetric, facial sensations are normal. Motor examination normal muscle tone, strength to 4 extremities. DTR are +2, planter's are flexor. Sensory exam; normal coordination, no ataxia, gait stable. Cerebellar exam: [id number]-wd-[id number] and [id number]-[id number] is normal. Extrapyramidal system: No tremors, no rigidity with normal facial expressions. Pronator drift not present Course Reevaluation(s) Reevaluation #1: New onset seizure with 3 episodes of tonic-clonic seizure described by since last night, with complete regained of consciousness in between, normal neuro exam, patient was loaded with Keppra in the ED, negative head CT and normal neuro exam, will be admitted for further neuro evaluation. Slight troponin elevated with no delta change thought to be a demand increased. Time: 14:01 Medications Administered Discontinued Medications Generic Name Dose Route Start Last Admin Trade Name Freq PRN Reason Stop Dose Admin Sodium Chloride 1,000 mls @ 999 mls/hr 01/05/25 11:31 01/05/25 12:59 Ns IV 01/05/25 12:31 Infused .Q1H1M ONE Infusion Levetiracetam 1,000 mg in 100 mls @ 400 mls/hr 01/05/25 11:43 01/05/25 12:59 Keppra IV 01/05/25 11:57 Infused ONCE ONE Infusion Medical Decision Making Differential Diagnosis Differential Diagnoses: The differential diagnosis associated with the presentation includes (Cardiac effect, electrolyte derangement, new onset seizure, intracranial bleed, CVA, , severe anemia.) Admission/Observation Consideration of admission/observation: Escalation of care including admission/observation considered Consult Healthcare Provider Management of the patient was discussed with: Hospitalist (Monserrat Henson) Lab Data MDM Lab Attestation statement: I reviewed the patient's lab results. 01/05/25 11:12 01/05/25 11:12 Labs: Lab Results 01/05/25 01/05/25 01/05/25 Range/Units 11:12 12:53 13:23 WBC 7.4 (4.8-10.8) X10*3/uL RBC 5.24 (4.20-5.50) X10*6/uL Hgb 13.9 (12.0-16.0) g/dl Hct 42.1 (37.0-47.0) % MCV 80.3 (80.0-98.0) fL MCH 26.5 L (27.0-33.0) pg MCHC 33.0 (31.0-35.0) g/dl RDW 14.9 (11.0-16.0) % Plt Count 254 (160-400) X10*3/uL MPV 9.9 (9.4-12.3) fL Immature Gran % (Auto) 0.3 (0.0-0.4) % Neut % (Auto) 60.4 (45-73) % Lymph % (Auto) 23.8 (20-40) % [place] % (Auto) 13.6 H (2-11) % Eos % (Auto) 1.5 (0-4) % Baso % (Auto) 0.4 (0-2) % Lymph # (Auto) 1.8 (1.2-4.9) X10*3/uL [place]corn # (Auto) 1.0 (0.1-1.2) X10*3/uL Eos # (Auto) 0.1 (0.0-0.4) X10*3/uL Baso # (Auto) 0.0 (0.0-0.2) X10*3/uL Abs Immat Gran (auto) 0.02 (0.00-0.03) X10*3/uL Absolute Neuts (auto) 4.5 (2.0-8.3) x10*3/uL Absolute Nucleated RBC 0.000 (0.0-0.012) X10*3/uL Nucleated RBC % (auto) 0.0 (0.0-0.2) /100WBC Sodium 140 (135-145) mmol/L Potassium 4.0 (3.3-5.1) mmol/L Chloride 109 H (96-108) mmol/L Carbon Dioxide 20 L (22-29) mmol/L Anion Gap 15 (12-20) BUN 13 (9-16) mg/dL Creatinine 0.90 (0.5-1.4) mg/dL Estim Creat Clear Calc 101.1 Estimated GFR > 60 Random Glucose 95 (60-115) mg/dL Calcium 8.9 D (8.4-10.2) mg/dL Magnesium 2.3 (1.6-2.6) mg/dL Total Bilirubin 0.2 (0.0-1.0) mg/dL AST 27 (5-31) U/L ALT 27 (0-31) U/L Alkaline Phosphatase 114 (39-117) U/L Troponin I High Sens 28.8 H D 25.6 H (<3.5-17.0) ng/L Total Protein 7.8 (6.5-8.0) g/dL Albumin 4.3 (3.5-5.0) g/dL Beta HCG, Quant < 2 mIU/mL Urine Color Yellow Urine Appearance Clear Urine pH 7.0 (5.0-9.0) Ur Specific [place] 1.010 (1.005-1.025) Urine Protein Trace (Neg-Trace) mg/dL Urine Glucose (UA) Negative (Negative) mg/dL Urine Ketones Negative (Negative) mg/dL Urine Blood Negative (Negative) Urine Nitrite Negative (Negative) Ur Leukocyte Esterase Negative (Negative) Independent Interpretation I performed an independent interpretation of an: CT Scan (Head/C-spine: No acute pathology.) Radiology Impression Discussion of test interpretation with radiology: I have reviewed the radiologist's reading. Discharge Plan Discharge Clinical Impression: New onset seizure Patient Disposition: Admitted As Inpatient Print Language: Citizen Of [place]
[2025-01-05 11:45] LABS: Alanine Aminotransferase 27 U/L (0-31); Albumin Level 4.3 g/dL (3.5-5.0); Alkaline Phosphatase 114 U/L (39-117); Anion Gap 15 (12-20); Aspartate Amino Transferase 27 U/L (5-31); Blood Urea Nitrogen 13 mg/dL (9-16); Calcium 8.9 mg/dL (8.4-10.2); Carbon Dioxide 20 mmol/L (22-29); Chloride 109 mmol/L (96-108); Creatinine Clr Calc Pharmacy 101.1; Estimated Glomerular Filt Rate > 60; Magnesium 2.3 mg/dL (1.6-2.6); Potassium 4.0 mmol/L (3.3-5.1); Sodium 140 mmol/L (135-145); Total Protein 7.8 g/dL (6.5-8.0); Troponin-I High Sensitivity 28.8 ng/L (<3.5-17.0)
[2025-01-05] MEDS: levETIRAcetam in NaCl (iso-os) 1,000 MG/100 ML PIGGYBACK 400 MG IV (11:54)
[2025-01-05 13:17] LABS: Troponin-I High Sensitivity 25.6 ng/L (<3.5-17.0)
[2025-01-05 13:23] VITALS: BP 117/69; PULSE 77; RESP 14; TEMP 36.8; O2SAT 98
[2025-01-05 13:31] LABS: Appearance Urine Clear; Glucose Urine UA Negative (Negative); PH 7.0 (5.0-9.0); Specific Gravity - Urine 1.010 (1.005-1.025)
--- NOTE | 2025-01-05 14:19 | PC.NURSE ---
Patient able to ambulate to bathroom w/o assistive device
[2025-01-05 14:50] LABS: Cannabinoid Screen Urine Not Detected (Not Detect)
--- NOTE | 2025-01-05 16:17 | PHA.MEDREC ---
Addendum entered by Lara Babcock [facility] 01/05/25 16:25: Communication was a bit of a challenge, family member was able to show 3 medication bottles over facetime. We did not discontinue the Mirena IUD or vit B2 becuase we were unable to confirm Addendum entered by Lara Babcock [facility] 01/05/25 16:23: Reviewed by pharmacist Original Note: Pharmacy Consult ? Medication Reconciliation Pharmacy has completed the medication reconciliation. Family member was able to confirm medications via medication bottles on Facetime.
--- NOTE | 2025-01-05 16:29 | MHC.EDTECH ---
Left message for [facility] with service for routine consult at 1026
--- NOTE | 2025-01-05 18:08 | P.HPHOSP_ITS ---
History of Present Illness Date of Service: 01/05/25 Attending physician on admission: [place] [facility] Chief Complaint: Seizure-like activity Pt is a 39-year-old Chinese Creole speaking female with a PMH significant for?migraines who presents to the ED with?seizure-like activity last night and this morning. Pt does not remember events and is accompanied by her who provides HPI. reports pt had 2 episodes last night involving tonic- clonic like activity and 1 episode again this morning while she was sleeping. Has been reports pt becomes stiff and shaking, with her ?mouth going to 1 side? and becomes incontinent of urine. Episodes where apparently less than 1 minute in duration. He does not describe any clear postictal state afterwards. These episodes apparently began when pt was last year when they occurred with some frequency. They apparently stopped post until today. Pt is not on any antiepileptics. Pt herself reports she has a ?pain in my heart? that is dull, not stabbing or sharp. Denies shortness or breath. No headache. Denies nausea, vomiting, abdominal pain. In the ED pt's vitals stable and WNL. Labs were significant for troponin of 28.8 with repeat flat at 25.6, otherwise grossly unremarkable and around baseline for pt. No leukocytosis. Stable H&H. No significant electrolyte abnormalities. Renal and hepatic function baseline. UA negative for UTI. Tox screen negative. CTA of head negative for acute intracranial findings. CT of C-spine negative for acute findings. Pt was treated in the ED with IVF and a Keppra lobe 1000 mg IV. Pt is admitted to the hospital for treatment and further evaluation of seizure-like activity concerning for possible new onset seizures. Review of Systems 2 Review of Systems: Negative except for that which is stated in the HPI. [facility] Medical History (Updated 01/05/25 @ 18:25 by [place]ON [place]) Migraine Family History Father No problems noted. Mother No problems noted. Surgical History Hx of section Hx of tubal ligation Social History Household Members: Spouse and Children [facility] Other[facility] Unable to assess alcohol history related to: Unable to respond Alcohol intake: never Patient Tobacco Use Status: Never used Tobacco Use of substances other than those prescribed or required for medical reasons: Unable to respond Advance Directives: No Advance Directives Information Provided: No Do you have a plan to hurt others: No Plan Patient : No Current occupational status: unemployed Sexual orientation: Straight/Heterosexual Gender identity: Female Meds Allergies Allergy/AdvReac Type Severity Reaction Status Date / Time No Known Allergies Allergy Verified 01/05/25 10:59 Active Medications: Current Medications Acetaminophen (Acetaminophen 325 Mg Tablet) 650 mg PO Q6H PRN PRN Reason: Pain, Mild 1-3,fever,headache Calcium Carbonate (Calcium Carbonate 750 Mg Tab.Chew) 750 mg PO Q4H PRN PRN Reason: Heartburn Enoxaparin Sodium (Enoxaparin Sodium 40 Mg/0.4 Ml Syringe) 40 mg SUBCUT Q24H PAULINE Levetiracetam (Levetiracetam 500 Mg Tablet) 500 mg PO BID PAULINE Magnesium Hydroxide (Milk Of Magnesia 30 Ml Oral.Susp) 30 ml PO DAILY PRN PRN Reason: Constipation Melatonin (Melatonin 3 Mg Tablet) 6 mg PO BEDTIME PRN PRN Reason: Insomnia Naproxen (Naproxen 500 Mg Tablet) 500 mg PO Q12H PRN PRN Reason: Headache or migraine Ondansetron HCl (Ondansetron Hcl 4 Mg/2 Ml Vial) 4 mg IVPUSH Q8H PRN PRN Reason: Nausea and Vomiting Simethicone (Simethicone 80 Mg Tab.Chew) 80 mg PO BIDPC PRN PRN Reason: gas Sodium Chloride (0.9 % Sodium Chloride Flush 3 Ml Syringe) 3 ml IVFLUSH QSHIFT PAULINE Topiramate (Topiramate 25 Mg Tablet) 25 mg PO BID [facility] Home Medications ?Medication ?Instructions ?Recorded ?Confirmed ?Last Taken ?Type levonorgestrel (Mirena) intrauterine 10/23/24 Unknown History simethicone 80 mg chewable tablet 80 mg PO BID PRN GAS 01/05/25 01/05/25 Unknown History Physical Exam 2 Vital Signs and Narrative: Vital Signs: Last Vital Signs Temp 98.3 F 01/05/25 13:23 Pulse 77 01/05/25 13:23 Resp 14 01/05/25 13:23 BP 117/69 01/05/25 13:23 Pulse Ox 98 01/05/25 13:23 O2 Del Method Room Air 01/05/25 13:23 BMI result Body Mass Index 26.7 General: AOx3, no acute distress. Somnolent but arousable Resp: CTA bilaterally CVS: S1, S2, RRR GI: +BS, NT, no distention Skin: Warm, dry Neuro: Cranial nerves II-XII grossly intact bilaterally. Motor grossly intact bilaterally. No focal deficits noted. Extremities: No edema Psych: Appropriate affect Results Labs 01/05/25 11:12 01/05/25 11:12 Labs: Laboratory Results - last 24 hr 01/05/25 01/05/25 11:12 13:23 MCV 80.3 MCH 26.5 L MCHC 33.0 RDW 14.9 Plt Count 254 MPV 9.9 Immature Gran % (Auto) 0.3 Neut % (Auto) 60.4 Lymph % (Auto) 23.8 Hart % (Auto) 13.6 H Eos % (Auto) 1.5 Baso % (Auto) 0.4 Lymph # (Auto) 1.8 Hart # (Auto) 1.0 Eos # (Auto) 0.1 Baso # (Auto) 0.0 Abs Immat Gran (auto) 0.02 Absolute Neuts (auto) 4.5 Absolute Nucleated RBC 0.000 Nucleated RBC % (auto) 0.0 Anion Gap 15 Estim Creat Clear Calc 101.1 Estimated GFR > 60 Random Glucose 95 Calcium 8.9 D Magnesium 2.3 Total Bilirubin 0.2 AST 27 ALT 27 Alkaline Phosphatase 114 Total Protein 7.8 Albumin 4.3 Beta HCG, Quant < 2 Urine Color Yellow Urine Appearance Clear Urine pH 7.0 Ur Specific [place] 1.010 Urine Protein Trace Urine Glucose (UA) Negative Urine Ketones Negative Urine Blood Negative Urine Nitrite Negative Ur Leukocyte Esterase Negative Urine Opiates Screen Not Detected Ur Buprenorphine Scrn Not Detected Ur Oxycodone Screen Not Detected Urine Methadone Screen Not Detected Urine Fentanyl Screen Not Detected Ur Barbiturates Screen Not Detected Ur Phencyclidine Scrn Not Detected Ur Amphetamines Screen Not Detected U Benzodiazepines Scrn Not Detected Urine Cocaine Screen Not Detected U Marijuana (THC) Screen Not Detected Assessment and Plan (1) Seizure-like activity: Status: Acute Plan Pt is a 39-year-old Chinese Creole speaking female with a PMH significant for?migraines who presents to the ED with?seizure-like activity last night and this morning. Pt is admitted to the hospital for treatment and further evaluation of seizure-like activity concerning for possible new onset seizures. Seizure-like activity Pt with tonic-clonic like episodes while sleeping, 2 at night and another in the morning Previous episodes while last year, none since giving ; hcg neg Loaded with Keppra 1g IV in the ED; will empirically start on 500 po bid Tox screen negative; no electrolyte abnormalities Neurology consult EEG Will defer MRI pending neruology consult Seizure precautions Monitor on telemetry Migraines Continue topiramate Full Code Attending:?Dr. Post DVT Prophylaxis: Lovenox Pt will require a hospitalization of at least two nights for treatment of?tonic- clonic type activity concerning for new onset seizure. Pt will require close cardiac and neurological monitoring, as well as specialist consultation with Neurology and additional workup involving EEG and possible MRI. Quality Stroke Does the patient have a stroke diagnosis?: No VTE Prior VTE?: No VTE Risk Level:: Medical - moderate - high VTE Device Contraindication: Treatment Not Indicated VTE Drug Contraindication: N/A - Med Ordered
[2025-01-05 18:23] VITALS: BP 117/69; PULSE 77; RESP 14; TEMP 36.8; O2SAT 98
[2025-01-05 21:24] VITALS: BMI 28.9
[2025-01-05 21:26] VITALS: BP 112/71; PULSE 93; RESP 20; TEMP 36.6; O2SAT 99
[2025-01-05] MEDS: 0.9 % Sodium Chloride Flush 3 ML SYRINGE IVFLUSH (21:45)
[2025-01-05 23:20] VITALS: BP 113/81; PULSE 109; RESP 20; TEMP 36.9; O2SAT 98
[2025-01-06 03:28] VITALS: BP 116/69; PULSE 83; RESP 20; TEMP 36.5; O2SAT 98
[2025-01-06 07:27] VITALS: BP 120/70; PULSE 78; RESP 20; TEMP 36.3; O2SAT 98
[2025-01-06 08:18] LABS: Anion Gap 13 (12-20); Blood Urea Nitrogen 12 mg/dL (9-16); Calcium 8.2 mg/dL (8.4-10.2); Carbon Dioxide 20 mmol/L (22-29); Chloride 110 mmol/L (96-108); Creatinine Clr Calc Pharmacy 126.0; Estimated Glomerular Filt Rate > 60; Potassium 3.7 mmol/L (3.3-5.1); Sodium 139 mmol/L (135-145)
[2025-01-06] MEDS: 0.9 % Sodium Chloride Flush 3 ML SYRINGE IVFLUSH (09:22)
--- NOTE | 2025-01-06 09:50 | PM.NEUROCN ---
History of Present Illness Data of Consult Service Date: 01/06/25 Primary Care Provider: Unknown Physician HPI Reason for consult: Seizure disorder 39 years old woman who was being seen in emergency room couple of times at [facility] in also in Neurology office and [place] and was being investigated for seizure disorder and was going through neurological and cardiology workup. She had an EEG recently that was mildly abnormal suggestive of left hemispheric paroxysmal disorder like seizures or migraine. Further EEG monitoring was recommended when patient was waiting for that. In the meantime she was back to emergency room. I reviewed previous notes and apparently she had episodes of suddenly passing out thrashing and foaming. She was also under significant stress. When I saw her she was comfortable eating her meal. Review of Systems Review of Systems: Recent stressors related to her place of residence and children PMFSH Past Medical History Medical History Migraine Family History Family History Father No problems noted. Mother No problems noted. Surgical History Surgical History Hx of section Hx of tubal ligation Social History Social History Household Members: Family Housing: Other Housing Other:: [facility] Do you presently have visiting nurse or other home services: No Unable to assess alcohol history related to: Unable to respond Alcohol intake: never Patient Tobacco Use Status: Never used Tobacco Second Hand Smoke Exposure: No Use of substances other than those prescribed or required for medical reasons: Unable to respond Currently Displaying Signs/Symptoms of Drug Intoxication Withdrawal: No Have you been hit, kicked, punched, or otherwise hurt by someone within the past year? If so, by whom?: No Do you feel safe in your current relationship?: Yes Is there a partner from a previous relationship who is making you feel unsafe now?: No Are you made to feel afraid or neglected: No Advance Directives: No Advance Directives Information Provided: No Do you have a plan to hurt others: No Plan Recently lost weight without trying: No Eating poorly because of decreased appetite: Yes Nutrition Risks: No Nutritional Risk Patient : No : No Poor oral hygiene: No Current occupational status: unemployed Sexual orientation: Straight/Heterosexual Gender identity: Female Meds Allergies Allergy/AdvReac Type Severity Reaction Status Date / Time No Known Allergies Allergy Verified 01/05/25 10:59 Active Medications: Current Medications Acetaminophen (Acetaminophen 325 Mg Tablet) 650 mg PO Q6H PRN PRN Reason: Pain, Mild 1-3,fever,headache Calcium Carbonate (Calcium Carbonate 750 Mg Tab.Chew) 750 mg PO Q4H PRN PRN Reason: Heartburn Enoxaparin Sodium (Enoxaparin Sodium 40 Mg/0.4 Ml Syringe) 40 mg SUBCUT Q24H [facility] Last Admin: 01/05/25 20:15 Dose: 40 mg Levetiracetam (Levetiracetam 500 Mg Tablet) 500 mg PO BID [facility] Last Admin: 01/06/25 09:17 Dose: 500 mg Magnesium Hydroxide (Milk Of Magnesia 30 Ml Oral.Susp) 30 ml PO DAILY PRN PRN Reason: Constipation Melatonin (Melatonin 3 Mg Tablet) 6 mg PO BEDTIME PRN PRN Reason: Insomnia Naproxen (Naproxen 500 Mg Tablet) 500 mg PO Q12H PRN PRN Reason: Headache or migraine Ondansetron HCl (Ondansetron Hcl 4 Mg/2 Ml Vial) 4 mg IVPUSH Q8H PRN PRN Reason: Nausea and Vomiting Simethicone (Simethicone 80 Mg Tab.Chew) 80 mg PO BIDPC PRN PRN Reason: gas Sodium Chloride (0.9 % Sodium Chloride Flush 3 Ml Syringe) 3 ml IVFLUSH QSHIFT [facility] Last Admin: 01/06/25 09:22 Dose: 3 ml Topiramate (Topiramate 25 Mg Tablet) 25 mg PO BID [facility] Last Admin: 01/06/25 09:17 Dose: 25 mg Home Medications ?Medication ?Instructions ?Recorded ?Confirmed ?Last Taken ?Type levonorgestrel (Mirena) intrauterine 10/23/24 11/30/24 Unknown History simethicone 80 mg chewable tablet 80 mg PO BID PRN GAS 01/05/25 01/05/25 Unknown History Physical Exam Vital Signs: Vital Signs: Last Vital Signs Temp 97.4 F 01/06/25 07:27 Pulse 78 01/06/25 07:27 Resp 20 01/06/25 07:27 BP 120/70 01/06/25 07:27 Pulse Ox 98 01/06/25 07:27 O2 Del Method Room Air 01/06/25 07:27 BMI result Body Mass Index 28.9 Neuro: Other: She is alert and awake with normal spontaneity of speech fluency comprehension and affect. Face is symmetrical. Visual carvajal are full. There was no focal weakness. Deep tendon reflexes are trace to 1+ with flexor plantars. Speech is normal. Results Labs 01/05/25 11:12 01/06/25 07:00 Labs: Short CBC 01/05/25 Range/Units 11:12 WBC 7.4 (4.8-10.8) X10*3/uL Hgb 13.9 (12.0-16.0) g/dl Hct 42.1 (37.0-47.0) % Plt Count 254 (160-400) X10*3/uL BMP 01/05/25 01/06/25 11:12 07:00 Sodium 140 139 Potassium 4.0 3.7 Chloride 109 H 110 H Carbon Dioxide 20 L 20 L BUN 13 12 Creatinine 0.90 0.75 Calcium 8.9 D 8.2 L D Liver Function 01/05/25 Range/Units 11:12 Total Bilirubin 0.2 (0.0-1.0) mg/dL AST 27 (5-31) U/L ALT 27 (0-31) U/L Alkaline Phosphatase 114 (39-117) U/L Albumin 4.3 (3.5-5.0) g/dL Urine 01/05/25 Range/Units 13:23 Urine Color Yellow Urine Appearance Clear Urine pH 7.0 (5.0-9.0) Ur Specific [place] 1.010 (1.005-1.025) Urine Protein Trace (Neg-Trace) mg/dL Urine Glucose (UA) Negative (Negative) mg/dL Noncontrast head CT did not reveal any significant abnormality. Previously MRI of brain with and without contrast revealed few tiny FLAIR hyperintensity is of nonspecific nature Assessment and Plan (1) Seizure-like activity: Status: Acute Probably epileptic seizure disorder though and this type of patient with significant stress, episodes related to psychological reasons can also be present. In light of multiple episodes suggestive of generalized seizures and a mildly abnormal EEG, my recommendation is to start her on levetiracetam 500 mg twice a day and proceed with ambulatory EEG workup as an outpatient. She should be advised to not drive and not be involved in an activity that could put her life in danger such as sitting in a soaking tub alone or swimming alone. She should follow-through with a neurologist in [place]. In terms of other parts of workup, I also recommend sed rate, blood test for lupus, Lyme and syphilis. Finally, of note, her brain MRI was done but did not include full epilepsy protocol. More specifically, coronal FLAIR sequences or missing without which medial temporal lobe could not be properly evaluated. This is not an urgent matter but in future if MRI is ever done, proper attention should be placed to gather those sequences. Procedures Date of Service Date of Service: 01/06/25
[2025-01-06 11:02] VITALS: BP 113/73; PULSE 86; RESP 20; TEMP 36.5; O2SAT 100
--- NOTE | 2025-01-06 12:58 | MHC.CM.PN ---
CM attempted to meet with pt. to complete assessment, she was asleep and did not wake to voice. She has been medically cleared, plan in self care.
--- NOTE | 2025-01-06 13:01 | P.DS_ITS ---
DS: Providers Provider Date of Service: 01/06/25 Date of admission: 01/05/25 14:32 Date of discharge: 01/06/25 Primary care physician: Unknown Physician Consults: 01/05/25 14:21 Consult to Neurology Routine Consulting Provider: [facility] [place] [facility] Reason for consultation: New onset seizure DS: Diagnosis Discharge Diagnosis (1) Seizure-like activity: Status: Acute DS: Summary Hospital Course Hospital Course: From admission HPI: Date of Service: 01/05/25 Attending physician on admission: [facility] Chief Complaint: Seizure-like activity Pt is a 39-year-old Kyrgyz Creole speaking female with a PMH significant for?migraines who presents to the ED with?seizure-like activity last night and this morning. Pt does not remember events and is accompanied by her who provides HPI. reports pt had 2 episodes last night involving tonic- clonic like activity and 1 episode again this morning while she was sleeping. Has been reports pt becomes stiff and shaking, with her ?mouth going to 1 side? and becomes incontinent of urine. Episodes where apparently less than 1 minute in duration. He does not describe any clear postictal state afterwards. These episodes apparently began when pt was last year when they occurred with some frequency. They apparently stopped post until today. Pt is not on any antiepileptics. Pt herself reports she has a ?pain in my heart? that is dull, not stabbing or sharp. Denies shortness or breath. No headache. Denies nausea, vomiting, abdominal pain. In the ED pt's vitals stable and WNL. Labs were significant for troponin of 28.8 with repeat flat at 25.6, otherwise grossly unremarkable and around baseline for pt. No leukocytosis. Stable H&H. No significant electrolyte ab normalities. Renal and hepatic function baseline. UA negative for UTI. Tox screen negative. CTA of head negative for acute intracranial findings. CT of C-spine negative for acute findings. Pt was treated in the ED with IVF and a Keppra lobe 1000 mg IV. Pt is admitted to the hospital for treatment and further evaluation of seizure-like activity concerning for possible new onset seizures. Hospital course: The pt was admitted to hospital for episodes of unresponsiveness with tonic- clonic like movements suggestive of generalized seizure disorder. Pt was loaded with 1 g Keppra in the ED and started on empiric Keppra 500 mg b.i.d. on the hospital floor. Tox screen was negative; had no electrolyte abnormalities. Overnight telemetry monitoring was unremarkable, and hospital stay was uncomp licated. Was seen and evaluated by Neurology who note that she was already undergoing outpatient seizure workup and had a mildly abnormal EEG 10 days prior on 12/27/24. Recommendation was to continue with levetiracetam 500 mg po twice a day, outpatient ambulatory EEG, and possible MRI with full epilepsy protocol. Pt could also benefit from additonal lab workup including sed rate, and testing for lupus, Lyme, and syphylis. Pt should follow up with PCP and outpatient neurology in [place]. She should resume all of her other home medications. Time Attestation Discharge Coordination Time (in mins): 35 Quality: Safe Use of Opioids Does Pt have an Active Cancer Diagnosis on the Problem List?: No Quality: Stroke Does the patient have a stroke diagnosis?: No Physical Exam Exam: Exam: General: AOx3, no acute distress Resp: CTA bilaterally CVS: S1, S2, RRR GI: +BS, NT, no distention Skin: Warm, dry. Neuro: Cranial nerves II-XII grossly intact bilaterally. Motor grossly intact bilaterally. No focal deficits noted. No tremors. Extremities: No edema Psych: Appropriate affect Vital Signs: Vital Signs: Last Vital Signs Temp 97.7 F 01/06/25 11:02 Pulse 86 01/06/25 11:02 Resp 20 01/06/25 11:02 BP 113/73 01/06/25 11:02 Pulse Ox 100 01/06/25 11:02 O2 Del Method Room Air 01/06/25 11:02 BMI result Body Mass Index 28.9 DS: Data Data Completed and Pending Labs on day of discharge: Laboratory Results - last 24 hr 01/05/25 01/05/25 01/06/25 12:53 13:23 07:00 Hold Purple Top SEE NOTE Sodium 139 Potassium 3.7 Chloride 110 H Carbon Dioxide 20 L Anion Gap 13 BUN 12 Creatinine 0.75 Estim Creat Clear Calc 126.0 Estimated GFR > 60 Random Glucose 97 Calcium 8.2 L D Troponin I High Sens 25.6 H Urine Color Yellow Urine Appearance Clear Urine pH 7.0 Ur Specific [place] 1.010 Urine Protein Trace Urine Glucose (UA) Negative Urine Ketones Negative Urine Blood Negative Urine Nitrite Negative Ur Leukocyte Esterase Negative Urine Opiates Screen Not Detected Ur Buprenorphine Scrn Not Detected Ur Oxycodone Screen Not Detected Urine Methadone Screen Not Detected Urine Fentanyl Screen Not Detected Ur Barbiturates Screen Not Detected Ur Phencyclidine Scrn Not Detected Ur Amphetamines Screen Not Detected U Benzodiazepines Scrn Not Detected Urine Cocaine Screen Not Detected U Marijuana (THC) Screen Not Detected Discharge Plan Discharge Anticipated Discharge Date/Time: 01/06/25 12:47 Patient Disposition: Home, Self-Care Discharge Diagnosis: New onset seizures Referrals: Physician,Unknown J [Primary Care Provider, Medical] - 1 Week Discharge Medications: New levetiracetam 500 mg tablet 500 mg PO Q12H Qty: 180 0RF Rx Instructions: Take one tablet twice a day for seizure disorder Continued simethicone 80 mg Tablet,Chewable 80 mg PO BID PRN (Reason: GAS) topiramate 25 mg tablet 25 mg PO BID 30 Days Qty: 60 3RF riboflavin (vitamin B2) 400 mg tablet 400 mg PO DAILY 90 Days Qty: 90 3RF naproxen 500 mg tablet 500 mg PO Q12H PRN (Reason: Headache or migraine) 30 Days Qty: 90 3RF Mirena 21 mcg/24hr (up to 8 yrs) 52 mg intrauterine device intrauterine Discharge Orders: Discharge Order (Routine); Ordered 01/06/25 Ordered By: Kaye Lane Activity on Discharge: As tolerated Stand Alone Forms: Patient Portal Discharge page Print Language: Albanian Care Plan Goals: See below Health Concerns: Seizure disorder Plan of Treatment: You were admitted to the hospital for new onset seizures and treated with IV levetiracetam. You were seen and evaluated by Neurology who noted you had a recent abnormal EEG, and they suggested you start taking anti-seizure medication at home. -- For seizure disorder, take levetiracetam 500 mg twice a day -- You should follow up outpatient with neurology in [place] -- You are recommended to have continued outpatient workup, including ambulatory EEG, MRI with full epilepsy protocol, and blood work including testing for sed rate, lupus, Lyme, and syphilis -- You should not drive until you are seizure free for 6 months -- Avoid activities that would put you in danger if you had a seizure, including swimming or soaking in a tub alone, climbing a ladder, operating heavy machinery, etc. -- Continue all of your other home medications Assessment: See discharge summary
== END 2025-01-06 14:00 | disposition home or self-care (01) | DRG 53 ==
LOC: HO.ED 14:06 → HO.EDOVER 14:38 → HO.IMC 19:48
PROVIDERS: Admitting Provider Student in an Organized Health Care Education/Training Program; Emergency Provider Emergency Medicine; Visit Provider Student in an Organized Health Care Education/Training Program
DX: G40.909 Epilepsy, unspecified, not intractable, without status epilepticus (principal); G43.909 Migraine, unspecified, not intractable, without status migrainosus; Z79.899 Other long term (current) drug therapy
CPT/HCPCS: 36415; 70450; 72125; 80048; 80053; 80307; 81003; 83735; 84484; 84702; 85025; 99285; J1650; J1953

== ENCOUNTER → 2025-01-05 11:43 | Outpatient (BNV) | payer OTHER, SELFPAY | PROVIDERS: Emergency Provider Emergency Medicine; Visit Provider Radiology Diagnostic Radiology | DX: M47.812 Spondylosis without myelopathy or radiculopathy, cervical region (principal); G40.89 Other seizures | CPT/HCPCS: 70450; 72125 ==

== ENCOUNTER → 2025-01-05 14:32 | Outpatient (BNV) | payer OTHER, SELFPAY | PROVIDERS: Admitting Provider Student in an Organized Health Care Education/Training Program; Emergency Provider Emergency Medicine; Visit Provider Psychiatry & Neurology Neurology | DX: R56.9 Unspecified convulsions (principal) | CPT/HCPCS: 99223 ==

== ENCOUNTER → 2025-01-05 14:32 | Outpatient (BNV) | payer OTHER, SELFPAY | PROVIDERS: Admitting Provider Student in an Organized Health Care Education/Training Program; Emergency Provider Emergency Medicine; Visit Provider Student in an Organized Health Care Education/Training Program | DX: R56.9 Unspecified convulsions (principal) | CPT/HCPCS: 99223; 99239 ==

== ENCOUNTER 2025-01-23 10:55 | Outpatient (REF) | payer OTHER, SELFPAY ==
--- NOTE | ~2025-01-23 | US_ITS ---
EXAMINATION: US PELVIS TRANSABDOMINAL AND TRANSVAGINAL CLINICAL INFORMATION: N83.209 - Unspecified ovarian cyst, unspecified side COMPARISON: Ultrasound on October 09, 2024. TECHNIQUE: Ultrasound of the pelvis is performed using both transabdominal and transvaginal transducers along with Doppler. Transvaginal imaging is performed due to inadequate visualization transabdominally. FINDINGS: Uterus: The uterus is anteverted and anteflexed and measures 9.3 x 5.0 x 6.8 cm (volume of 164.7). Heterogeneous myometrium. Small focal lesion that measures 0.6 x 0.4 x 0.4 cm on the left side of the uterus appears to represent a myometrial cyst or small leiomyoma with degeneration. The double wall endometrial thickness 0.6 cm. An intrauterine device is present, which appears at least obliquely oriented, possibly upside down based on the volumetric images. The tip of the IUD terminates at 0.5 cm from the left side of fundic end of the endometrial cavity, with the arms on the right side of the endometrial cavity. Right ovary measures 2.8 x 1.7 x 1.8 cm (volume of 4.4 cc). Unremarkable sonographic appearance. Left ovary measures 3.1 x 2.3 x 2.2 cm (volume of 8.1 cc). Few follicles within the left ovary, the largest measuring 1.0 cm. Pelvis: No free fluid. US/US pelvic and transvaginal IMPRESSION: 1. Normal follicular appearance of the left ovary. 2. 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 Electronically signed by: Boston Salinas MD 01/23/2025 12:24 PM EDT
== END 2025-01-23 10:56 | disposition home or self-care (01) ==
LOC: HO.US 10:55
PROVIDERS: Visit Provider Obstetrics & Gynecology
DX: N83.209 Unspecified ovarian cyst, unspecified side (principal)
CPT/HCPCS: 76830; 76856

== ENCOUNTER → 2025-01-23 10:57 | Outpatient (BNV) | payer OTHER, SELFPAY | PROVIDERS: Visit Provider Radiology Body Imaging | DX: D25.9 Leiomyoma of uterus, unspecified (principal) | CPT/HCPCS: 76830; 76856 ==

== ENCOUNTER 2025-01-24 08:58 | Outpatient (REF) | payer OTHER, SELFPAY ==
--- OUTSIDE RECORDS SUMMARY | 2023-07-19 04:14 | XMS_ITS | Continuity of Care Document ---
Author Organization [facility] Address [address] [place] [address] Phone Care Team Providers Care Jig Worker Name Role Phone Jeison Velez MD Unavailable [...] Diagnoses Date Provider Providers Copied on Encounter [facility], [address], [place], [place], [address], tel:[phone] [address] No Information 4 Agustin Mchugh . [address], [facility] 400, [place], [place], [address] , [place]. tel:[phone] Referring Provider: Jeison Velez MD H, [address], [place], [address] . tel:[phone] Office/outpa tient visit,est, mod [facility], [address], [place], [place], [address], [place] tel:[phone] [facility] 400 left shoulder pain (chief complaint) Subacromial impingement, leftLeft shoulder pain, unspecified chronicityPain in left leg 4 Agustin Mchugh . [address], [place], [place], [address] , [place]. tel: [phone] Referring Provider: Jeison Coello, [address], [place], [address] . tel:[phone] Office/outpa tient visit,[facility], [facility], [address], [place], [place], [address], [place] tel:[phone] [facility] 400 left shoulder pain (chief complaint) Left shoulder pain, unspecified chronicitySubacr omial impingement, left Jan- 3 Agustin Mchugh . [address], [place], [place], [address] , [place]. tel: [phone] Referring Provider: Jeison Coello, [address], [place], [address] . tel:[phone] Office/outpa tient visit,[facility], [address], [place], [place], [address], [place] tel:[phone] [facility] 400 left shoulder pain (chief complaint) Left shoulder pain, unspecified chronicitySubacr omial impingement, left 3 Agustin Mchugh . [address], [place], [place], [address] , [place]. tel: [phone] Referring Provider: Jeison Coello, [address], [place], [address] . tel:[phone] Office/outpa tient visit,[facility], [facility], [address], [place], [place], [address], [place] tel:[phone] left shoulder pain (chief complaint) Subacromial impingement, leftLeft shoulder pain, unspecified chronicity Fermin- 3 Agustin Mchugh . [address], [place], [place], [address] , [place]. tel:[phone] Referring Provider: Jeison Velez MD H, [address], [place], [address] . tel:[phone] Office/outpa tient visit,[facility], [address], [place], [place], [address], [place] tel:[phone] left shoulder pain (chief complaint) Subacromial impingement, left Aug- 3 Agustin Mchugh . [address], [place], [place], [address] , [place]. tel:[phone] Referring Provider: Jeison Velez MD H, [address], [place], [address] . tel:[phone] Office/outpa tient visit,[facility], [address], [place], [place], [address], [place] tel:[phone] [facility] [address] left shoulder pain (chief complaint) Left shoulder pain, unspecified chronicitySubacr omial impingement, left Jul- 3 Agustin Mchugh . [address], [place], [place], [address] , [place]. tel:[phone] Referring Provider: Jeison Velez MD H, [address], [place], [address] . tel:[phone] [facility], [address], [place], [place], [address], [place] tel:[phone] [facility] 400 No Information Jul- 3 Agustin Mcuhgh . [address], [place], [place], [address] , [place]. tel:[phone] Referring Provider: Jeison Velez MD H, [address], [place], [address] . tel:[phone] Family History Family Member Type Diagnosis Age At Onset No Information Payers Payer name Insurance type Covered republican ID Authoriza tiasm(s) [facility] W/C [id number] Social History Type Description Quantity Date Captured [...] as treatment options through the aid of internal control manager. We have ordered physical therapy on multiple occasions. Physical therapy has been spotty at best. I am not sure if it is a communication problem with the patient or with her folder machine adjuster. We will go ahead and [...] exam f indings with the aid of internal control manager as well as her nurse watch caser. She appears to be improving but still [...] but has not yet begun. She has internal control manager here with her today and again [...]
[2025-01-24 21:59] LABS: Bacterial Vaginosis PCR NEGATIVE (Negative); Candida Group PCR DETECTED (Not Detect); Candida glab krusei PCR NOT DETECTED (Not Detect); Trichomonas vaginalis PCR NOT DETECTED (Not Detect)
[2025-01-24 23:47] LABS: CT PCR NOT DETECTED (Not Detect.); NG PCR NOT DETECTED (Not Detect.)
== END 2025-01-24 08:59 | disposition home or self-care (01) ==
LOC: HO.LNP 08:58
PROVIDERS: Visit Provider Obstetrics & Gynecology
DX: Z30.433 Encounter for removal and reinsertion of intrauterine contraceptive device (principal); N76.0 Acute vaginitis
CPT/HCPCS: 58300; 58301; 81025; 81515; 87491; 87591; J7298

== ENCOUNTER 2025-01-24 08:58 | Outpatient (AMB) | payer OTHER, SELFPAY ==
--- NOTE | 2025-01-24 09:03 | A.OFFVIS_ITS ---
Vital Signs 01/24/25 09:04 Height 5 ft 7 in Weight 184 lb BMI 28.8 Intake Visit Reasons: IUD removal Sensor Technician Required: Yes Sensor Technician Language: Shaq Ga Sensor Technician Services: Sensor Technician Present (Photoblog) Sensor Technician Name: Regan #[id number] Information Interpreted: non-clinical & clinical Digital Project Manager: Digital Project Manager Present (Hannah Sherwood STEPHANE) Accompanied by: Self / Same As Patient Allergies No Known Allergies Allergy (Verified 01/24/25 09:16) Is last menstrual period known: No (mirena) HPI Comments Details: Presenting for follow-up regarding 2 ovarian cyst seen on previous ultrasound in 10/3101/23/2025 pelvic ultrasound showed the following: IMPRESSION: 1. Normal follicular appearance of the left ovary. 2. 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 Mother No problems noted. Social History Household Members: Family Housing: Other Housing Other:: care home Do you presently have visiting nurse or other home services: No Unable to assess alcohol history related to: Unable to respond Alcohol intake: never Patient Tobacco Use Status: Never used Tobacco Second Hand Smoke Exposure: No Current occupational status: unemployed Sexual orientation: Straight/Heterosexual Gender identity: Female Physical Exam Vital Signs: BMI result Body Mass Index 28.8 Office Procedures IUD Insert/Removal Details Details: The patient is presenting for IUD removal and IUD reinsertion. Her last menstrual period was within the last 5 days, Urine test was done in the office and was negative; All the contraindications were excluded. The following possible complications were discussed with the patient: Intrauterine , Ectopic , Sepsis, Pelvic Infection, Irregular Bleeding and Amenorrhea, Perforation, Expulsion, Ovarian Cysts, Breast Cancer. The following adverse effects were discussed with the patient: alteration of menstrual bleeding pattern, including: unscheduled uterine bleeding decreased uterine bleeding increased scheduled uterine bleeding female genital tract bleeding ,amenorrhea , genital discharge , vulvovaginitis , breast pain , benign ovarian cyst and associated complications , dysmenorrhea , Gastrointestinal disorders abdominal/pelvic pain, headache/migraine , back pain , acne , depression Alternative options were discussed with the patient including but not limited: control pills, patch, NuvaRing, Depo-medroxyprogesterone acetate, Nexplanon, copper IUD, sterilization, vasectomy, others The procedure was explained in detail to patient , at the end patient signed the informed consent obtained. Alternative options were discussed with the patient The patient signed the consent and agreed with the plan; all questions answered. Urine test was done in the office and was negative Preop dx: IUD malpositioned for Mirena IUD removal and Reinsertion Op: IUD removal and Mirena insertion Post op dx: same EBL= 10 cc Procedure: The patient was put in the dorsal lithotomy position a speculum was inserted in the vagina the IUD thread identified. Using a Julieta clamp the thread was grasped and the IUD pulled out with no complications. A no touch technique was used throughout the procedure. A speculum was placed into vagina and cervix was cleaned with betadine). A tenaculum was placed. A plastic sound was advanced through the external and internal os until it reached the fundus of the uterus, the depth was 8 cm. The sound was then withdrawn. The IUD was loaded in a sterile manner and advanced into position. The string was visualized and cut to 3 cm. Tenaculum site hemostatic. All instruments removed from vagina. Patient tolerated the procedure well. NO complications were noted. Patient was instructed to call for fever over 100.4, significant pain unrelieved by Motrin, IUD expulsion, heavy bleeding, or abnormal discharge. In addition, the following clinical considerations were discussed with the patient to call for removal: A stroke or heart attack ,Very severe or migraine headaches ,Unexplained fever ,Yellowing of the skin or whites of the eyes, as these may be signs of serious liver problems , or suspected , Pelvic pain or pain during sex ,HIV positive seroconversion in herself or her partner , Possible exposure to sexually transmitted infections Unusual vaginal discharge or genital sores , severe vaginal bleeding or bleeding that lasts a long time, or if she misses a menstrual period, Inability to feel Mirena's threads Counseled the patient that the IUD does not protect against STI's, recommended use of condoms for the first 7 days post insertion and explained to the patient that condoms are recommended for patients at risk for sexually transmitted infections. Follow up appointment made for 4 weeks following insertion. Date of removal in no more than five years for DUB treatment and 8 years for contraception from today?s date was d/w patient. This note was generated with a voice recognition program. Some errors may have been overlooked during the review of this note. Sometimes these errors may affect the content or meaning of a given sentence. 60513-WLC Insertion 62991-IXN Removal Procedure code (CPT) selection complete Office Meds Mirena 21 mcg/24 hr (up to 8 years) 52 mg intrauterine device Performing Provider: Thomas Acevedo MD Performing Location: [facility] Documented (not given) by: Thomas Acevedo MD on 01/24/25 09:41 Dose Route Admin Location Dispensed Lot Number Expiration Date [facility] [employer] Hel[employer] 1 device intrauterine ea Total Dispensed Waste n/a n/a Assessment & Plan Assessment & Plan (1) Encounter for IUD removal and reinsertion: Code(s): Z30.433 - Encounter for removal and reinsertion of intrauterine contraceptive device Category: Medical Plan: UPT done in the office was negative, GC/CT collected Discussed with the patient the results the ultrasound, recommended IUD removal. Options of treatment for AUB and family planning discussed with the patient, the patient decided to proceed with reinsertion of a new Mirena IUD. Mirena IUD removal/reinsertion done, see procedure note (2) Vulvovaginitis: Code(s): N76.0 - Acute vaginitis Category: Medical Plan: GC/CT, Bacterial Vaginosis panel taken, Terazol 0.8% q.h.s. for 3 days was sent to the patient's pharmacy. The patient was instructed to call if symptoms don't improve in 48 hours. Orders: Orders AMB IUD Insertion/Removal - Practice Supplied Today Z30.433 - Encounter for removal and reinsertion of intrauterine contraceptive device Medications: New terconazole 0.8% 1 appful vaginal BEDTIME 20 grams 0RF 3 days Mirena (levonorgestrel) 1 device intrauterine ONCE 1 ea 0RF IUD removal and reinsertion NS Z30.433 - Encounter for removal and reinsertion of intrauterine contraceptive device Coding Level of Care Code Procedure Only Diagnoses Encounter for IUD removal and reinsertion Z30.433 Vulvovaginitis N76.0 CPT Codes Details - CPT: 47334-ODB Insertion ([id number]) Details - CPT: 86781-CAX Removal ([id number])
[2025-01-24 09:04] VITALS: BMI 28.8
== END 2025-01-24 09:52 | disposition home or self-care (01) ==
LOC: HO.HWS 08:58
PROVIDERS: Visit Provider Obstetrics & Gynecology
DX: Z30.433 Encounter for removal and reinsertion of intrauterine contraceptive device (principal); N76.0 Acute vaginitis; Z32.02 Encounter for pregnancy test, result negative
CPT/HCPCS: 58300; 58301

== ENCOUNTER 2025-02-06 10:21 | Outpatient (AMB) | payer OTHER, SELFPAY ==
--- OUTSIDE RECORDS SUMMARY | 2023-07-19 04:14 | XMS_ITS | Continuity of Care Document ---
Author Organization [facility] Address [address] [place] [address] Phone Care Team Providers Care Afternoon Nanny Name Role Phone Jeison Velez MD Unavailable [...] Diagnoses Date Provider Providers Copied on Encounter [facility], [address], [place], [place], [address], tel:[phone] [address] No Information 4 Agustin Mchugh . [address], [facility] [address], [place], [place], [address] , [place]. tel:[phone] Referring Provider: Jeison Velez MD H, [address], [place], [address] . tel:[phone] Office/outpa tient visit,est, mod [facility], [address], [place], [place], [address], [place] tel:[phone] [facility] 400 left shoulder pain (chief complaint) Subacromial impingement, leftLeft shoulder pain, unspecified chronicityPain in left leg 4 Agustin Mchugh . [address], [place], [place], [address] , [place]. tel: [phone] Referring Provider: Jeison Coello, [address], [place], [address] . tel:[phone] Office/outpa tient visit,[facility], [facility], [address], [place], [place], [address], [place] tel:[phone] [facility] 400 left shoulder pain (chief complaint) Left shoulder pain, unspecified chronicitySubacr omial impingement, left Jan- 3 Agustin Mchugh . [address], [place], [place], [address] , [place]. tel: [phone] Referring Provider: Jeison Coello, [address], [place], [address] . tel:[phone] Office/outpa tient visit,[facility], [address], [place], [place], [address], [place] tel:[phone] [facility] 400 left shoulder pain (chief complaint) Left shoulder pain, unspecified chronicitySubacr omial impingement, left 3 Agustin Mchugh . [address], [place], [address] , [place]. tel: [phone] Referring Provider: Jeison Coello, [address], [place], [address] . tel:[phone] Office/outpa tient visit,[facility], [facility], [address], [place], [place], [address], [place] tel:[phone] left shoulder pain (chief complaint) Subacromial impingement, leftLeft shoulder pain, unspecified chronicity Fermin- 3 Agutsin Mchugh . [address], [place], [place], [address] , [place]. tel:[phone] Referring Provider: Jeison Velez MD H, [address], [place], [address] . tel:[phone] Office/outpa tient visit,[facility], [address], [place], [place], [address], [place] tel:[phone] left shoulder pain (chief complaint) Subacromial impingement, left Aug- 3 Agustin Mchugh . [address], [place], [place], [address] , [place]. tel:[phone] Referring Provider: Jeison Velez MD H, [address], [place], [address] . tel:[phone] Office/outpa tient visit,[facility], [address], [place], [place], [address], [place] tel:[phone] [facility] [address] left shoulder pain (chief complaint) Left shoulder pain, unspecified chronicitySubacr omial impingement, left Jul- 3 Agustin Mchugh . [address], [place], [address] , [place]. tel:[phone] Referring Provider: Jeison Velez MD H, [address], [place], [address] . tel:[phone] [facility], [address], [place], [place], [address], [place] tel:[phone] [facility] 400 No Information Jul- 3 Agustin Mchugh . [address], [place], [place], [address] , [place]. tel:[phone] Referring Provider: Jeison Velez MD H, [address], [place], [address] . tel:[phone] Family History Family Member Type Diagnosis Age At Onset No Information Payers Payer name Insurance type Covered republican ID Authoriza tisam(s) [facility] W/C [id number] Social History Type Description Quantity Date Captured [...] relieved by rest. left shoulder pain Romi wlash is a 37 year old female. Patient [...] as treatment options through the aid of science interpreter. We have ordered physical therapy on multiple [...] exam f indings with the aid of science interpreter as well as her nurse correctional case manager. She appears to be improving [...] but has not yet begun. She has science interpreter here with her today and again I [...]
[2025-02-06 10:23] VITALS: BP 112/70; BMI 28.8
--- NOTE | 2025-02-06 10:23 | A.OFFVIS_ITS ---
Vital Signs 02/06/25 10:23 Height 5 ft 7 in Weight 184 lb BMI 28.8 BP 112/70 Intake Visit Reasons: ultrasound results Director Of Vendor Management Required: Yes Director Of Vendor Management Language: Vietnamese Creaydin Director Of Vendor Management Services: Director Of Vendor Management Present (VirtualU) Director Of Vendor Management Name: Sal #[id number] Information Interpreted: non-clinical & clinical Accompanied by: Self / Same As Patient Allergies No Known Allergies Allergy (Verified 02/06/25 10:26) Is last menstrual period known: No (mirena) HPI Comments Details: Presenting 2 weeks post IUD insertion doing well with vaginal discomfort no vaginal bleeding , the patient is requesting IUD removal PFSH Medical History Seizure-like activity Migraine Surgical History Hx of section Family History Father No problems noted. Mother No problems noted. Social History Household Members: Family Housing: Other Housing Other:: assisted Do you presently have visiting nurse or other home services: No Alcohol intake: never Patient Tobacco Use Status: Never used Tobacco Second Hand Smoke Exposure: No Current occupational status: unemployed Sexual orientation: Straight/Heterosexual Gender identity: Female Female Reproductive History Menstrual control method: progestin IUCD Review of Systems Const All systems reviewed & are unremarkable except as noted in HPI and below Physical Exam Vital Signs: Last Vital Signs BP 112/70 02/06/25 10:23 BMI result Body Mass Index 28.8 General: Yes no CVA tenderness External Female Exam: normal external appearance and normal appearance of the urethra Speculum Exam - Vagina: normal appearance of the vagina, normal palpation, no lesions and no masses Speculum Exam - Cervix: normal appearance of the cervix, normal palpation, no lesions, no masses, nontender and Other cervical findings present (IUD thread seen) Bimanual exam- vagina & uterus: normal bimanual exam, normal palpation, uterine size normal, normal palpation, uterine shape normal, No Cervical tenderness present and non-tender Bimanual Exam- Adnexa, other: normal adnexae Back/Spine/Pelvis Back: no CVA tenderness Office Procedures IUD Insert/Removal Details Details: Counseling/Consent: After discussing with the patient the risks of the procedure including bleeding, infection, scar tissue formation, , possible injury to blood vessels or nerves, chronic arm pain, blood transfusion, and irregular unpredictable bleeding Alternative options were discussed with the patient including but not limited: Do nothing. The patient signed the consent and agreed with the plan; all questions answered. Urine test was done in the office and was negative Preop dx: Requesting IUD removal Op: IUD removal Post op dx: same EBL= 10 cc Procedure: The patient was put in the dorsal lithotomy position a speculum was inserted in the vagina the IUD thread identified. Using a Julieta clamp the thread was grasped and the IUD pulled out with no complications. The patient tolerated the procedure well and was advised to use a different method for contraception. Discharge instructions: Instructions were given to the pt to call if temp>100.4, abdominal pain heavy vaginal bleeding, n/v occur. The patient verbalized understanding and all questions answered. This note was generated with a voice recognition program. Some errors may have been overlooked during the review of this note. Sometimes these errors may affect the content or meaning of a given sentence. Procedure code (CPT) selection complete Assessment & Plan Assessment & Plan (1) Encounter for IUD removal: Code(s): Z30.432 - Encounter for removal of intrauterine contraceptive device Category: Medical Plan: UPT done was negative, Mirena IUD removed, see procedure note Instructions given the patient to use a backup method for control. All questions answered, the patient verbalized understanding Coding Level of Care Code Est Pt Level 3 (40799) Diagnoses Encounter for IUD removal Z30.432
== END 2025-02-06 11:05 | disposition home or self-care (01) ==
PROVIDERS: Visit Provider Obstetrics & Gynecology
DX: Z30.432 Encounter for removal of intrauterine contraceptive device (principal)
CPT/HCPCS: 99213

== ENCOUNTER → 2025-02-06 10:21 | Outpatient (BNVA) | payer OTHER, SELFPAY | PROVIDERS: Visit Provider Obstetrics & Gynecology | DX: Z30.432 Encounter for removal of intrauterine contraceptive device (principal) | CPT/HCPCS: 99212 ==

== ENCOUNTER 2025-03-26 09:06 | Outpatient (REF) | payer OTHER, SELFPAY ==
--- NOTE | 2025-03-26 09:08 | EEG_ITS ---
72 Hour Ambulatory EEG History: 40 years old woman who was being seen in emergency room couple of times at [facility] and also in Neurology office in [place] and was being investigated for seizure disorder and was going through neurological and cardiology workup. She had an EEG recently that was mildly abnormal suggestive of left hemispheric paroxysmal disorder like seizures or migraine. She had episodes of suddenly passing out thrashing and foaming. She was also under significant stress. Medications: Acetaminophen, Calcium Carbonate, Enoxaparin Sodium, Levetiracetam, Magnesium Hydroxide,Melatonin, Naproxen, Ondansetron HCl, Simethicone, Sodium Chloride, Topiramate Technical description:? Behavioral state: pleasant State of Consciousness:awake and sleep Skull defect: none Sedation: none Handedness: right Duration of study: 72 hour Last Event: unknown Diary entries / Symptoms: Patient did not report any symptoms ? Description: This is a 16 channel 72 hour ambulatory EEG. Patient kept limited diary but reported no symptoms during this tracing. Each day of EEG was separately reviewed. Each day included wakefulness and different stages of sleep. Background EEG rhythm during wakefulness was symmetric alpha posteriorly and lower amplitude fast anteriorly. Patient transitioned into sleep during both days were different stages of sleep noted. Frequent date intermittently sharp wave discharges were noted originating from right temporal area and generalized. At times similar discharges were noted in left temporal area with phase reversal at T3. At times, pattern was left temporal poorly spike and wave discharges. Similar abnormalities were noted during all 3 days. Impression: Abnormal 72 hours EEG revealing evidence for frequent bitemporal epileptic discharges. MTDD
== END 2025-03-26 09:07 | disposition home or self-care (01) ==
LOC: HO.NEURO 09:06
PROVIDERS: Visit Provider Nurse Practitioner Family
DX: R94.01 Abnormal electroencephalogram [EEG] (principal); R56.9 Unspecified convulsions
CPT/HCPCS: 95700; 95705; 95708

== ENCOUNTER → 2025-03-26 09:08 | Outpatient (BNV) | payer OTHER, SELFPAY | PROVIDERS: Visit Provider Psychiatry & Neurology Neurology | DX: R56.9 Unspecified convulsions (principal); R94.01 Abnormal electroencephalogram [EEG] | CPT/HCPCS: 95723 ==